=== PATIENT | male | born 1955 | race Caucasian/White ===

== ENCOUNTER 2019-10-14 03:47 | Inpatient (IN) | payer MEDICARE, SELFPAY ==
[2019-10-14] VITALS (36 sets, daily range): BP systolic 132–210; BP diastolic 74–138; PULSE 56–97; RESP 13–60; TEMP 36.6–37.1; O2SAT 88–98; BMI 34.8
--- NOTE | 2019-10-14 03:52 | ED_ITS ---
Entered by Johanny Ron, acting as scribe for Documented by User: José Miguel Patrick DO 10/14/19 18:53 HPI - SOB/Dyspnea General: Chief Complaint: Shortness of Breath/Dyspnea Stated Complaint: sob Time Seen by Provider: 10/14/19 03:52 Source: patient Mode of arrival: ambulatory Limitations: no limitations History of Present Illness: HPI Narrative: 64 yo m came to the er pov for shortness of breath. Onset was 2 days ago. Pt said that he has not been running a fever and does not have a productive cough. Pt said that a couple days ago his daughter called the ambulance and they administer o2 and he felt good so he did not want to come into the er. Pt said that his breathing gets worse when he lays back. Pt is not a smoker and has not traveled recently. Pt is a diabetic. Pt said that his pcp is Dr. Harris out of [place]. MD elicited complaint: shortness of breath Pertinent past history: diabetes Onset (ago): day(s) (2 days ago) Timing: constant Severity: moderate Exacerbating factors: lying flat Relieving factors: oxygen and rest Known history of: diabetes Associated symptoms: Deny abdominal pain, chest pain, fever(s), orthopnea or polyuria Treatment prior to arrival: none Related Data: Home oxygen amount: none Review of Systems General: Reports: other (negative unless marked) Const: Denies: fever ENMT: Denies: throat pain, ear pain, nasal discharge or nasal congestion Card: Reports: swelling of feet/ankles and shortness of breath on exertion; Denies: chest pain or shortness of breath when lying down Resp: Reports: shortness of breath; Denies: productive cough GI: Denies: abdominal pain : Denies: flank pain Musc: Denies: neck pain or back pain Skin/Breast: Denies: rash or itching Neuro: Denies: headache Endo: Denies: excessive urination Christ/Lymph: Denies: easy bruising PFS ED PFSH: Medical History (Updated 10/14/19 @ 11:18 by Tish Valencia DO) Diabetes mellitus Hypertension Mitral regurgitation Obstructive sleep apnea Pulmonary hypertension Surgical History (Updated 10/14/19 @ 11:17 by Tish Valencia DO) History of eye surgery Family History (Updated 10/14/19 @ 11:18 by Tish Valencia DO) Mother Hypertension Social History (Updated 10/14/19 @ 11:19 by Tish Valencia DO) Smoking and tobacco status: former smoker Alcohol intake: never Substance/Drug Use: never Physical Exam Const: COMMON NORMALS: no apparent distress GENERAL APPEARANCE: cooperative and comfortable ORIENTATION/CONSCIOUSNESS: Yes awake, Yes oriented to person, Yes oriented to place and Yes oriented to time HENMT: COMMON NORMALS: normocephalic, head/scalp atraumatic, hearing grossly normal bilaterally, external ears normal, EAC's normal, TM's normal bilaterally, nasal mucous membranes and turbinates normal, moist oral mucous membranes and oropharynx normal HEAD & SCALP: normocephalic and atraumatic NOSE: nasal mucous membranes and turbinates normal EXTERNAL EAR: Yes external ears normal EXTERNAL AUDITORY CANAL: EAC's normal TYMPANIC MEMBRANE: TM's normal bilaterally Eye: COMMON NORMALS: PERRL, EOMs intact bilaterally, conjunctivae normal and no scleral icterus CONJUNCTIVA: Yes conjunctivae normal PUPIL: Yes PERRL Neck/C-Spine: COMMON NORMALS: full ROM, no lymphadenopathy, supple and no JVD Lymph: LYMPHATIC: no lymphadenopathy noted and no lymphedema noted Resp: COMMON NORMALS: normal respiratory effort, no retractions, no use of accessory muscles and clear to auscultation bilaterally AUSCULTATION: clear to auscultation bilaterally Cardio: COMMON NORMALS: no JVD, regular rate, regular rhythm and no murmurs RATE: regular rate RHYTHM: regular rhythm GI: COMMON NORMALS: soft to palpation and no hepatosplenomegaly AUSCULTA TION: Yes normoactive bowel sounds PALPATION: Yes soft, No tender, No guarding and Yes no hepatosplenomegaly Extremity: COMMON NORMALS: normal to inspection, normal capillary refill, no c lubbing, cyanosis or edema and no calf tenderness GENERAL: Yes edema Neuro: SENSORIUM/ORIENTATION: Yes oriented to person, Yes oriented to place and Yes oriented to time Skin: COMMON NORMALS: no rashes or lesions noted GENERAL SKIN EXAM: no rashes or lesions noted Course ED course: Patient has dyspnea with exertion and is mildly orthopneic. We are waiting on a second troponin and doing a home O2 evaluation. Care turned over to Dr. Muro at change of shift Vital Signs: Vital signs: Vital Signs Temperature 97.9 F 10/14/19 03:57 Pulse Rate 72 10/14/19 15:42 Respiratory Rate 18 10/14/19 15:42 Blood Pressure 178/104 10/14/19 15:00 Pulse Oximetry 92 10/14/19 15:42 MDM - SOB/Dyspnea Lab Data: Labs: Lab Results 10/14/19 10/14/19 10/14/19 Range/Units 04:14 04:14 04:14 WBC 11.9 H (4.0-10.0) 10^3/ uL RBC 4.76 (4.1-5.3) 10^6/u L Hgb 14.3 (11.7-16.6) g/dL Hct 43.9 (42.0-52.0) % MCV 92.2 (80-94) fL MCH 30.0 (28.0-34.0) pg MCHC 32.6 (30.0-36.0) g/dL RDW 12.6 (12.1-15.1) % Plt Count 228 (130-400) 10^3/c mm MPV 12.4 H (7.4-10.4) fL Neut % (Auto) 68.5 % Lymph % (Auto) 7.8 % [place] % (Auto) 7.0 % Eos % (Auto) 15.3 % Baso % (Auto) 1.1 % Neut # (Auto) 8.2 H (1.8-7.7) 10^3/u L Lymph # (Auto) 0.9 (0.8-4.8) 10^3/u L [place] # (Auto) 0.8 (0.2-0.9) 10^3/u L Eos # (Auto) 1.8 H (0.0-0.8) 10^3/u L Baso # (Auto) 0.1 (0.0-0.1) 10^3/u L Nucleated RBC % (a uto) 0 % Nucleated RBCs # 0.0 /100WBC Specimen Type Sample Site ABG pH (7.35-7.45) ABG pCO2 (35-45) mmHg ABG pO2 (80.0-100.0) mmH g ABG HCO3 (22-26) mmol/L ABG O2 Saturation ABG Base Excess (-2.0-2.0) mmol/ L Kevin Test A-a O2 Gradient (5-10) mmHg Hematocrit (42-52) % Hgb O2 Saturation (95-100) % Carboxyhemoglobin (0.4-20.1) %THgb Methemoglobin (0.4-1.5) % Total Hemoglobin (14-18) g/dL Ionized Calcium (1.1-1.4) mmol/L O2 Delivery Device O2 Liters/Min % Floral Arranger ID Sodium 141 (136-145) mmol/L Potassium 3.7 (3.5-5.1) mmol/L Chloride 103 (98-107) mmol/L Carbon Dioxide 33 H (22-29) mmol/L Anion Gap 8.7 (5-19) BUN 13 (8-23) mg/dL Creatinine 0.9 (0.7-1.2) mg/dL GFR Calculation 85.5 L (90-130) mL/min Glucose 185 H (65-115) mg/dL Calculated Osmolal ity 293 (285-295) mOsm/k g Calcium 9.0 (8.5-10.5) mg/dL Total Bilirubin 0.9 (0.15-1.2) mg/dL AST 38 (0-40) U/L ALT 50 H (0-41) U/L Alkaline Phosphata se 58 (40-130) IU/L Troponin T Baselin e 36 H (0-15) ng/mL Troponin T 120 Min ramona (0-15) ng/mL Delta Troponin T (0-10) ABS# NT-Pro-B Natriuret Pep 854 H (0-125) pg/mL Total Protein 7.3 (6.6-8.7) g/dL Albumin 3.6 (3.5-5.2) g/dL Globulin 3.7 (1.3-4.6) g/dL Influenza Type A A g (Negative) POC Influenza B Ag (Negative) 10/14/19 10/14/19 10/14/19 Range/Units 04:15 04:16 06:01 WBC (4.0-10.0) 10^3/ uL RBC (4.1-5.3) 10^6/u L Hgb (11.7-16.6) g/dL Hct (42.0-52.0) % MCV (80-94) fL MCH (28.0-34.0) pg MCHC (30.0-36.0) g/dL RDW (12.1-15.1) % Plt Count (130-400) 10^3/c mm MPV (7.4-10.4) fL Neut % (Auto) % Lymph % (Auto) % [place] % (Auto) % Eos % (Auto) % Baso % (Auto) % Neut # (Auto) (1.8-7.7) 10^3/u L Lymph # (Auto) (0.8-4.8) 10^3/u L [place] # (Auto) (0.2-0.9) 10^3/u L Eos # (Auto) (0.0-0.8) 10^3/u L Baso # (Auto) (0.0-0.1) 10^3/u L Nucleated RBC % (a uto) % Nucleated RBCs # /100WBC Specimen Type Arterial Sample Site Brachial, left ABG pH 7.42 (7.35-7.45) ABG pCO2 46.1 H (35-45) mmHg ABG pO2 58.5 L (80.0-100.0) mmH g ABG HCO3 30.0 H (22-26) mmol/L ABG O2 Saturation 92.2 ABG Base Excess 4.6 H (-2.0-2.0) mmol/ L Kevin Test N/a A-a O2 Gradient 34.9 H (5-10) mmHg Hematocrit 45.9 (42-52) % Hgb O2 Saturation 90.8 L (95-100) % Carboxyhemoglobin 0.8 (0.4-20.1) %THgb Methemoglobin 0.7 (0.4-1.5) % Total Hemoglobin 15.0 (14-18) g/dL Ionized Calcium 1.2 (1.1-1.4) mmol/L O2 Delivery Device Nc O2 Liters/Min 3.0 % Floral Arranger ID harkr Sodium 140.0 (136-145) mmol/L Potassium 3.3 L (3.5-5.1) mmol/L Chloride (98-107) mmol/L Carbon Dioxide (22-29) mmol/L Anion Gap (5-19) BUN (8-23) mg/dL Creatinine (0.7-1.2) mg/dL GFR Calculation (90-130) mL/min Glucose 180.0 H (65-115) mg/dL Calculated Osmolal ity (285-295) mOsm/k g Calcium (8.5-10.5) mg/dL Total Bilirubin (0.15-1.2) mg/dL AST (0-40) U/L ALT (0-41) U/L Alkaline Phosphata se (40-130) IU/L Troponin T Baselin e (0-15) ng/mL Troponin T 120 Min ramona 34.45 H (0-15) ng/mL Delta Troponin T -1.55 L (0-10) ABS# NT-Pro-B Natriuret Pep (0-125) pg/mL Total Protein (6.6-8.7) g/dL Albumin (3.5-5.2) g/dL Globulin (1.3-4.6) g/dL Influenza Type A A g Negative (Negative) POC Influenza B Ag Negative (Negative) Discharge Plan Discharge Patient Disposition: Admitted As Inpatient Admit Provider: Tish Vaelncia Clinical Impression: Acute dyspnea, Hypertensive crisis Congestive heart failure Qualifiers: Heart failure type: combined systolic and diastolic Heart failure chronicity: acute Qualified Code(s): I50.41 - Acute combined systolic (congestive) and diastolic (congestive) heart failure Condition: Fair Referrals: William Rodriguez [Primary Care Provider] - Mary Laguna FNP [Family Provider] - Discharge Date/Time: 10/14/19 14:40 Coding Level of Care Code ED Pasteurizing Machine Operator for [facility] Fwd Exam Comprehensive Documented by User: Michael Still DO 10/14/19 08:42 HPI - SOB/Dyspnea General: Chief Complaint: Shortness of Breath/Dyspnea Stated Complaint: sob Time Seen by Provider: 10/14/19 03:52 PFSH ED PFSH: Medical History (Updated 10/14/19 @ 11:18 by Tish Valencia DO) Diabetes mellitus Hypertension Mitral regurgitation Obstructive sleep apnea Pulmonary hypertension Surgical History (Updated 10/14/19 @ 11:17 by Tish Valencia DO) History of eye surgery Family History (Updated 10/14/19 @ 11:18 by Tish Valencia DO) Mother Hypertension Social History (Updated 10/14/19 @ 11:19 by Tish Valencia DO) Smoking and tobacco status: former smoker Alcohol intake: never Substance/Drug Use: never Course Vital Signs: Vital signs: Vital Signs Temperature 97.9 F 10/14/19 03:57 Pulse Rate 72 10/14/19 15:42 Respiratory Rate 18 10/14/19 15:42 Blood Pressure 178/104 10/14/19 15:00 Pulse Oximetry 92 10/14/19 15:42 MDM - SOB/Dyspnea Lab Data: Labs: Lab Results 10/14/19 10/14/19 10/14/19 Range/Units 04:14 04:14 04:14 WBC 11.9 H (4.0-10.0) 10^3/ uL RBC 4.76 (4.1-5.3) 10^6/u L Hgb 14.3 (11.7-16.6) g/dL Hct 43.9 (42.0-52.0) % MCV 92.2 (80-94) fL MCH 30.0 (28.0-34.0) pg MCHC 32.6 (30.0-36.0) g/dL RDW 12.6 (12.1-15.1) % Plt Count 228 (130-400) 10^3/c mm MPV 12.4 H (7.4-10.4) fL Neut % (Auto) 68.5 % Lymph % (Auto) 7.8 % [place] % (Auto) 7.0 % Eos % (Auto) 15.3 % Baso % (Auto) 1.1 % Neut # (Auto) 8.2 H (1.8-7.7) 10^3/u L Lymph # (Auto) 0.9 (0.8-4.8) 10^3/u L [place] # (Auto) 0.8 (0.2-0.9) 10^3/u L Eos # (Auto) 1.8 H (0.0-0.8) 10^3/u L Baso # (Auto) 0.1 (0.0-0.1) 10^3/u L Nucleated RBC % (a uto) 0 % Nucleated RBCs # 0.0 /100WBC Specimen Type Sample Site ABG pH (7.35-7.45) ABG pCO2 (35-45) mmHg ABG pO2 (80.0-100.0) mmH g ABG HCO3 (22-26) mmol/L ABG O2 Saturation ABG Base Excess (-2.0-2.0) mmol/ L Kevin Test A-a O2 Gradient (5-10) mmHg Hematocrit (42-52) % Hgb O2 Saturation (95-100) % Carboxyhemoglobin (0.4-20.1) %THgb Methemoglobin (0.4-1.5) % Total Hemoglobin (14-18) g/dL Ionized Calcium (1.1-1.4) mmol/L O2 Delivery Device O2 Liters/Min % Floral Arranger ID Sodium 141 (136-145) mmol/L Potassium 3.7 (3.5-5.1) mmol/L Chloride 103 (98-107) mmol/L Carbon Dioxide 33 H (22-29) mmol/L Anion Gap 8.7 (5-19) BUN 13 (8-23) mg/dL Creatinine 0.9 (0.7-1.2) mg/dL GFR Calculation 85.5 L (90-130) mL/min Glucose 185 H (65-115) mg/dL Calculated Osmolal ity 293 (285-295) mOsm/k g Calcium 9.0 (8.5-10.5) mg/dL Total Bilirubin 0.9 (0.15-1.2) mg/dL AST 38 (0-40) U/L ALT 50 H (0-41) U/L Alkaline Phosphata se 58 (40-130) IU/L Troponin T Baselin e 36 H (0-15) ng/mL Troponin T 120 Min ramona (0-15) ng/mL Delta Troponin T (0-10) ABS# NT-Pro-B Natriuret Pep 854 H (0-125) pg/mL Total Protein 7.3 (6.6-8.7) g/dL Albumin 3.6 (3.5-5.2) g/dL Globulin 3.7 (1.3-4.6) g/dL Influenza Type A A g (Negative) POC Influenza B Ag (Negative) 10/14/19 10/14/19 10/14/19 Range/Units 04:15 04:16 06:01 WBC (4.0-10.0) 10^3/ uL RBC (4.1-5.3) 10^6/u L Hgb (11.7-16.6) g/dL Hct (42.0-52.0) % MCV (80-94) fL MCH (28.0-34.0) pg MCHC (30.0-36.0) g/dL RDW (12.1-15.1) % Plt Count (130-400) 10^3/c mm MPV (7.4-10.4) fL Neut % (Auto) % Lymph % (Auto) % [place] % (Auto) % Eos % (Auto) % Baso % (Auto) % Neut # (Auto) (1.8-7.7) 10^3/u L Lymph # (Auto) (0.8-4.8) 10^3/u L [place] # (Auto) (0.2-0.9) 10^3/u L Eos # (Auto) (0.0-0.8) 10^3/u L Baso # (Auto) (0.0-0.1) 10^3/u L Nucleated RBC % (a uto) % Nucleated RBCs # /100WBC Specimen Type Arterial Sample Site Brachial, left ABG pH 7.42 (7.35-7.45) ABG pCO2 46.1 H (35-45) mmHg ABG pO2 58.5 L (80.0-100.0) mmH g ABG HCO3 30.0 H (22-26) mmol/L ABG O2 Saturation 92.2 ABG Base Excess 4.6 H (-2.0-2.0) mmol/ L Kevin Test N/a A-a O2 Gradient 34.9 H (5-10) mmHg Hematocrit 45.9 (42-52) % Hgb O2 Saturation 90.8 L (95-100) % Carboxyhemoglobin 0.8 (0.4-20.1) %THgb Methemoglobin 0.7 (0.4-1.5) % Total Hemoglobin 15.0 (14-18) g/dL Ionized Calcium 1.2 (1.1-1.4) mmol/L O2 Delivery Device Nc O2 Liters/Min 3.0 % Floral Arranger ID harkr Sodium 140.0 (136-145) mmol/L Potassium 3.3 L (3.5-5.1) mmol/L Chloride (98-107) mmol/L Carbon Dioxide (22-29) mmol/L Anion Gap (5-19) BUN (8-23) mg/dL Creatinine (0.7-1.2) mg/dL GFR Calculation (90-130) mL/min Glucose 180.0 H (65-115) mg/dL Calculated Osmolal ity (285-295) mOsm/k g Calcium (8.5-10.5) mg/dL Total Bilirubin (0.15-1.2) mg/dL AST (0-40) U/L ALT (0-41) U/L Alkaline Phosphata se (40-130) IU/L Troponin T Baselin e (0-15) ng/mL Troponin T 120 Min ramona 34.45 H (0-15) ng/mL Delta Troponin T -1.55 L (0-10) ABS# NT-Pro-B Natriuret Pep (0-125) pg/mL Total Protein (6.6-8.7) g/dL Albumin (3.5-5.2) g/dL Globulin (1.3-4.6) g/dL Influenza Type A A g Negative (Negative) POC Influenza B Ag Negative (Negative) Discharge Plan Discharge Patient Disposition: Admitted As Inpatient Admit Provider: Tish Valencia Clinical Impression: Acute dyspnea, Hypertensive crisis Congestive heart failure Qualifiers: Heart failure type: combined systolic and diastolic Heart failure chronicity: acute Qualified Code(s): I50.41 - Acute combined systolic (congestive) and diastolic (congestive) heart failure Condition: Fair Referrals: William Rodriguez [Primary Care Provider] - Mary Laguna FNP [Family Provider] - Discharge Date/Time: 10/14/19 14:40 Coding Level of Care Code ED Pasteurizing Machine Operator for [facility] Fwd Exam Comprehensive The documentation recorded by the Asaf murillo Stephanie Lyn, accurately ref lects the service I personally performed and the decisions made by me, José Miguel Patrick, DO Oct 14, 2019 03:47
--- NOTE | 2019-10-14 03:57 | XR_ITS ---
WS: [id number] XR chest 1V portable [id number] REASON FOR EXAM: dyspnea/cough FINDINGS: Cardiomegaly is noted. A reticular nodular pattern throughout both lung antonio are seen in the patterns are similar to previ ous exam of October 12, 2017. There is no active pulmonary edema, pneumonia. XR/XR chest 1V portable [id number] IMPRESSION: Interstitial disease bilaterally Cardiomegaly.
--- NOTE | 2019-10-14 04:03 | ECG_ITS ---
Measurements Intervals [place] Rate: 67 P: 42 DE: 194 QRS: -37 QRSD: 109 T: 111 QT: 452 QTc: 477 SINUS RHYTHM WITH OCCASIONAL SUPRAVENTRICULAR PREMATURE COMPLEXES LEFT AXIS DEVIATION [QRS AXIS < -30] LEFT VENTRICULAR HYPERTROPHY AND ST-T CHANGE [VOLTAGE CRITERIA PLUS ST/T AB ABNORMALITY] No previous ECG available for comparison Electronically Signed On 10-14-2019 12:46:14 CDT by Krystal Castaneda M.D. [email or web address] f
[2019-10-14 04:24] LABS: Basophils # 0.1 10^3/uL (0.0-0.1); Basophils % 1.1 %; Eosinophils # 1.8 10^3/uL (0.0-0.8); Eosinophils % 15.3 %; Hematocrit 43.9 % (42.0-52.0); Hemoglobin 14.3 g/dL (11.7-16.6); Lymphocytes # 0.9 10^3/uL (0.8-4.8); Lymphocytes % 7.8 %; Mean Corpuscular HGB Conc 32.6 g/dL (30.0-36.0); Mean Corpuscular Volume 92.2 fL (80-94); Mean Platelet Volume 12.4 fL (7.4-10.4); Monocytes # 0.8 10^3/uL (0.2-0.9); Neutrophils # 8.2 10^3/uL (1.8-7.7); Neutrophils % 68.5 %; Nucleated Red Blood Cells % 0 %; Platelet Count 228 10^3/cmm (130-400); Red Blood Count 4.76 10^6/uL (4.1-5.3); Red Cell Distribution Width 12.6 % (12.1-15.1); White Blood Count 11.9 10^3/uL (4.0-10.0)
[2019-10-14 04:26] LABS: ABG PCO2 46.1 mmHg (35-45); ABG PH Result 7.42 (7.35-7.45); Alveolar-Arterial Oxygen Gradi 34.9 mmHg (5-10); Arterial Blood Gas Hematocrit 45.9 % (42-52); Base Excess ABG 4.6 mmol/L (-2.0-2.0); Blood Gas Sample Site Brachial, left; Blood Gas Sample Type Arterial; Carboxyhemoglobin 0.8 %THgb (0.4-20.1); HGB O2 Sat 90.8 % (95-100); Ionized Calcium Level - ABG 1.2 mmol/L (1.1-1.4); Methemoglobin 0.7 % (0.4-1.5); Oxygen Device NC; Oxygen Saturation ABG 92.2; PO2 ABG 58.5 mmHg (80.0-100.0); Potassium Level - ABG 3.3 mmol/L (3.5-5.0)
[2019-10-14 04:42] LABS: Troponin(5th) Baseline 36 ng/mL (0-15)
[2019-10-14 04:43] LABS: Alanine Aminotransferase 50 U/L (0-41); Albumin Level 3.6 g/dL (3.5-5.2); Alkaline Phosphatase 58 IU/L (40-130); Anion Gap 8.7 (5-19); Aspartate Amino Transferase 38 U/L (0-40); Blood Urea Nitrogen 13 mg/dL (8-23); Carbon Dioxide 33 mmol/L (22-29); Chloride 103 mmol/L (98-107); Creatinine Clr Calc Pharmacy 108.9824; Globulin 3.7 g/dL (1.3-4.6); Glomerular Filtration Rate 85.5 mL/min (90-130); Glucose 185 mg/dL (65-115); Osmolality Calculated 293 mOsm/kg (285-295); Potassium 3.7 mmol/L (3.5-5.1); Sodium 141 mmol/L (136-145); Total Bilirubin 0.9 mg/dL (0.15-1.2); Total Protein 7.3 g/dL (6.6-8.7)
[2019-10-14 05:13] LABS: Influenza A by IFA Negative (Negative); Influenza B by IFA Negative (Negative)
[2019-10-14] MEDS: FUROsemide 10 mg/mL SDV 4mL 40 MG IVP (05:45)
[2019-10-14] MEDS: hyDRALAzine 20 mg/mL INJ 1 mL 10 MG IVP (05:47)
[2019-10-14 05:49] LABS: NT Pro B Type Natriuretic Pept 854 pg/mL (0-125)
--- NOTE | 2019-10-14 06:03 | ECG_ITS ---
Measurements Intervals [place] Rate: 63 P: 36 MS: 193 QRS: -24 QRSD: 104 T: 110 QT: 450 QTc: 461 SINUS RHYTHM BORDERLINE LEFT AXIS DEVIATION [QRS AXIS < -20] ST DEVIATION AND MODERATE T-WAVE ABNORMALITY, CONSIDER LATERAL ISCHEMIA No previous ECG available for comparison Electronically Signed On 10-14-2019 13:09:39 CDT by Krystal Castaneda M.D. [id number] f
[2019-10-14 06:28] LABS: Troponin 5 2HR 34.45 ng/mL (0-15)
[2019-10-14 06:40] LABS: Troponin 5 2HR Delta -1.55 ABS# (0-10)
[2019-10-14] MEDS: labetalol 5 mg/mL SDV 20mL 20 MG IVP (06:40)
--- NOTE | 2019-10-14 06:51 | PC.NURSE ---
850 ml urine emptied from urinal at this time.
--- NOTE | 2019-10-14 07:12 | PC.NURSE ---
PHYSICAL ASSESSMENT Chief Complaint: Shortness of breath Hx: Patient reports increased shortness of breath starting several days ago. Patient reports experiencing similar episodes previously. GENERAL / NEURO / PSYCH: Alert. Oriented X 4. HEENT: Mucous membranes are pink. RESPIRATORY: Tachypnea (60 RR) Lung sounds clear bilaterally. Grunting with each respiration. Patient unable to lay down. CVS: Capillary refill less than 2 seconds. GI / : Abdomen soft and nontender. Bowel sounds within normal limits. SKIN: Skin is warm with slight diaphoresis. Normal skin turgor.
--- NOTE | 2019-10-14 07:14 | PC.NURSE ---
RT to bedside for Bi-PAP application
--- NOTE | 2019-10-14 07:42 | PC.NURSE ---
Patient on Bi-PAP. Patient now able to lay semi fowlers. He reports feeling better following Bi-PAP application.
--- NOTE | 2019-10-14 07:50 | PC.NURSE ---
Daughter of patient has called. Patient unable to speak at this time. She was given an update on the patient's condition.
--- NOTE | 2019-10-14 08:54 | PC.NURSE ---
Patient becoming uncomfortable laying in hospital stretcher. Patient advised that he is waiting on other patients to be discharged so the hospital can accommodate him. Bi-PAP mask removed and sips of water given. Mask reapplied.
[2019-10-14 10:34] LABS: Troponin 5 6HR 34.79 ng/mL (0-15)
[2019-10-14 10:40] LABS: Troponin 5 6HR Delta -1.21 ng/L (0-12)
--- NOTE | 2019-10-14 11:07 | PC.NURSE ---
Patient resting at this time. He was offered water to drink. No needs voiced at this time.
--- NOTE | 2019-10-14 11:14 | P.HP_ITS ---
Providers/Chief Complaint Admitting Physician: Tish Valencia DO Primary Care Provider: William Rodriguez Chief Complaint: sob History of Present Illness Christian Lynch is a 64 year old male that presented to the emergency department for increasing shortness of breath. Patient denies any cough or sputum production, stated that his symptoms started over the past few days. He denies any recent illness, no fevers or chills, no travel or recent exposures. He reports history of high blood pressure and diabetes and takes lisinopril amlodipine and glyburide. He reported that he saw his primary care provider several weeks ago but no recent medication adjustments. He denies any chest pain or tightness, no palpitations lightheadedness or dizziness. Reports that he has been told that he had obstructive sleep apnea in the past but is never been on a CPAP. Patient was seen and evaluated in the emergency department noted to have concern for COPD and CHF exacerbation and admitted for further evaluation and treatment. Patient had flu swab that was negative. Concern for CHF exacerbation with hypertensive urgency and given IV Lasix, hydralazine and labetalol. Review of Systems Const: Denies: fever or chills Eyes: Denies: change in vision ENMT: Denies: nasal congestion Card: Reports: edema; Denies: chest pain or palpitations Resp: Reports: shortness of breath; Denies: productive cough or coughing up blood GI: Denies: abdominal pain, nausea, vomiting, diarrhea, constipation, blood in stool or black tarry stool : Denies: painful urination or blood in urine Musc: Denies: extremity pain or muscle cramps Skin/Breast: Denies: rash or new lesion Neuro: Denies: headache or dizziness Psych: Denies: anxiety or depression Endo: Denies: excessive urination or hot flashes Christ/Lymph: Denies: easy bruising or easy bleeding Medications/Allergies Home Medications Medication Instructions Recorded Confirmed Last Taken Type Eye Vitamin 1 tab PO DAILY 10/14/19 10/14/19 Unknown History albuterol sulfate [Ventolin HFA] 2 puff INHALATION Q4H PRN 10/14/19 10/14/19 Unknown History amlodipine 10 mg PO DAILY 10/14/19 10/14/19 Unknown History aspirin [Aspir-81] 81 mg PO DAILY 10/14/19 10/14/19 Unknown History glimepiride 8 mg PO DAILY 10/14/19 10/14/19 Unknown History metoprolol succinate 100 mg PO DAILY 10/14/19 10/14/19 Unknown History Allergies Allergy/AdvReac Type Severity Reaction Status Date / Time No Known Allergies Allergy Verified 10/03/19 08:02 PFSH Acute PFSH: Medical History (Updated 10/14/19 @ 11:18 by Tish Valencia DO) Diabetes mellitus Hypertension Mitral regurgitation Obstructive sleep apnea Pulmonary hypertension Surgical History (Updated 10/14/19 @ 11:17 by Tish Valencia DO) History of eye surgery Family History (Updated 10/14/19 @ 11:18 by Tish Valencia DO) Mother Hypertension Social History (Updated 10/14/19 @ 11:19 by Tish Valencia DO) Smoking and tobacco status: former smoker Alcohol intake: never Substance/Drug Use: never Vitals/I&O/Wt Last Vital Signs Temp 97.9 F 10/14/19 03:57 Pulse 65 10/14/19 11:08 Resp 16 10/14/19 11:08 BP 158/82 10/14/19 11:08 Pulse Ox 95 10/14/19 11:08 Weight last 48 hrs Weight 113.398 kg Physical Exam Const: COMMON NORMALS: oriented x3 GENERAL APPEARANCE: cooperative and lethargic ORIENTATION/CONSCIOUSNESS: Yes oriented to person HENMT: COMMON NORMALS: normocephalic and head/scalp atraumatic HEAD & SCALP: normocephalic and atraumatic Eye: COMMON NORMALS: PERRL PUPIL: Yes PERRL Neck/C-Spine: COMMON NORMALS: supple GENERAL: Yes normal visual inspection Resp: OTHER: BiPAP in place, diminished breath sounds bilaterally, no appreciable wheezing or rhonchi Cardio: COMMON NORMALS: regular rate and regular rhythm RATE: regular rate RHYTHM: regular rhythm OTHER: Faint systolic murmur GI: COMMON NORMALS: soft to palpation and non-tender INSPECTION: No abdominal distension AUSCULTATION: Yes normoactive bowel sounds PALPATION: Yes soft : COMMON NORMALS: Yes no CVA tenderness Extremity: OTHER: 3+ pitting edema in the lower extremities bilaterally Neuro: COMMON NORMALS: moves all extremities and no focal motor deficits SENSORIUM/ORIENTATION: Yes lethargic Psych: COMMON NORMALS: cooperative Skin: COMMON NORMALS: no rashes or lesions noted GENERAL SKIN EXAM: no rash es or lesions noted Data : 10/14/19 04:14 10/14/19 04:14 CXR: I personally reviewed and interpreted this imaging study as follows: Radiologist's impression: FINDINGS: Cardiomegaly is noted. A reticular nodular pattern throughout both lung antonio are seen in the patterns are similar to previous exam of October 12, 2017. There is no active pulmonary edema, pneumonia. XR/XR chest 1V portable [id number] IMPRESSION: Interstitial disease bilaterally Cardiomegaly. A&P Assessment and plan (1) Congestive heart failure: Concern for underlying congestive heart failure, prior echocardiogram from several years ago reviewed showing grade 2 diastolic dysfunction. On prior stress test that showed decreased LVEF to 30%, however echocardiogram showed around 55%. Will repeat echocardiogram for further evaluation Patient appears to be fluid overloaded on exam, given IV Lasix x1 in the ER, will continue with Lasix 40 mg daily Strict intake and output as well as daily weights Status: Acute Qualifiers: Heart failure chronicity: acute Heart failure type: combined systolic and diastolic Qualified Code(s): I50.41 - Acute combined systolic (congestive) and diastolic (congestive) heart failure Code(s): I50.9 - Heart failure, unspecified (2) Acute dyspnea: With hypoxia and hypercapnia, placed on BiPAP while in the ED, will transition to oxygen by nasal cannula as tolerated. We will continue to diurese as noted above. Patient does have prior sleep study which shows severe obstructive sleep apnea and recommended to wear CPAP, he has not had this at home Status: Acute Code(s): R06.00 - Dyspnea, unspecified (3) Hypertensive crisis: Given IV labetalol and hydralazine as well as Lasix in the ER, will restart his home amlodipine, lisinopril and metoprolol. Adjust medications and continue with diuresis as above Status: Acute Code(s): I16.9 - Hypertensive crisis, unspecified Additional A&P Information Diabetes mellitus type 2: Glucose of 185, will place on low-dose sliding scale insulin as needed Patient somewhat sleepy and lethargic while in the ED: Secondary to hypercapnia: Continue on BiPAP, continue with close neurologic checks Question of interstitial lung disease: Continue with respiratory therapy to assess and treat, oxygen per protocol, consider further imaging if indicated DVT prophylaxis: Lovenox Diet: N.p.o. until more alert CODE STATUS: Full code Attestations Medical Necessity Statement*: Patient requires hospitalization due to concern for acute congestive heart failure exacerbation with hypoxia and hypercapnia. Question of chronic interstitial lung disease. 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
[2019-10-14 11:53] LABS: Thyroid Stimulating Hormone 2.02 uIU/mL (0.27-4.20)
[2019-10-14] MEDS: enoxaparin 40 mg/0.4 mL Syringe SUBCUT (11:59)
--- NOTE | 2019-10-14 12:08 | PC.NURSE ---
800 mL urine output
--- NOTE | 2019-10-14 13:18 | PC.NURSE ---
Attempted to call report. Room not available at this time. Unable to give report.
--- NOTE | 2019-10-14 13:48 | PC.NURSE ---
RT at bedside.
--- NOTE | 2019-10-14 13:59 | PC.NURSE ---
Bi-PAP discontinued by RT
--- NOTE | 2019-10-14 14:23 | USCV_ITS ---
Christian Lynch Age: 64 Gender: M : 1955 Exam Date: 10/14/2019 15:26 Ordering Phys: Tish Valencia DO Technologist: Cecille Schmitz Exam Location: [facility] – [place] Indication: Shortness of breath BP: 178 / 104 HR: 63 Rhythm: Sinus Technical Quality: Suboptimal MEASUREMENTS (Male / Female) Normal Values 2D ECHO LV Diastolic Diameter PLAX 4.5 cm 4.2 - 5.9 / 3.9 - 5.3 cm LV Systolic Diameter PLAX 3.5 cm IVS Diastolic Thickness 2.1 cm 0.6 - 1.0 / 0.6 - 0.9 cm IVS Systolic Thickness 2.3 cm LVPW Diastolic Thickness 2.4 cm 0.6 - 1.0 / 0.6 - 0.9 cm LVPW Systolic Thickness 2.8 cm RV Chamber Size 3.9 cm LVOT Diameter 2.1 cm LV Ejection Fraction 2D Teich 43.0 % LV Ejection Fraction MOD 2C 33.7 % LV Ejection Fraction 2C AL 32.2 % LA Diameter 4.6 cm Aorta at Sinotubular Diameter 2.4 cm M-MODE LV Diastolic Diameter MM 6.3 cm 4.2 - 5.9 / 3.9 - 5.3 cm LV Systolic Diameter MM 4.2 cm LV Ejection Fraction MM Teich 62.2 % IVS Diastolic Thickness MM 1.0 cm 0.6 - 1.0 / 0.6 - 0.9 cm IVS Systolic Thickness MM 1.3 cm LVPW Diastolic Thickness MM 1.2 cm 0.6 - 1.0 / 0.6 - 0.9 cm LVPW Systolic Thickness MM 1.1 cm Aortic Annulus Diameter 3.6 cm LA Ao Ratio MM 1.3 MV E Point Septal Separation 1.2 cm DOPPLER AV Peak Velocity 142.0 cm/s LVOT Peak Velocity 110.0 cm/s AV Area Cont Eq vti 2.6 cm squared AV Area Cont Eq pk 2.7 cm squared MV Area PHT 4.8 cm squared Mitral E to A Ratio 1.6 MV E' Velocity 9.0 cm/s Mitral E to MV E' Ratio 10.9 Mitral E to LV E' Lateral Ratio 9.9 Mitral E to LV E' Septal Ratio 12.2 TR Peak Velocity 147.0 cm/s TR Peak Gradient 8.7 mmHg TV Peak E Velocity 64.0 cm/s Right Atrial Pressure 3.0 mmHg Pulmonary Artery Systolic Pressu 11.6 mmHg PV Peak Velocity 77.0 cm/s RV Acceleration Time 0.1 s RV Ejection Time 0.4 s RV AcT/ET 0.4 FINDINGS Left Ventricle Left ventricular cavity not well visualized. Normal left ventricular wall thickness.Overall left ventricular size, systolic function appears to be lower limit of normal. EF 45% . Consider MUGA, JONNATHAN or cardiac MRI if further information regarding EF is needed . Regional wall motion abnormalities - unable to comment due to poor windows Right Ventricle Normal right ventricular size. Normal right ventricular systolic function. Poorly visualized Right Atrium Mildly increased right atrial size. Left Atrium Mildly increased left atrial size. Mitral Valve Thickened mitral valve. Mitral valve not well visualized. Mild mitral valve regurgitation. No mitral stenosis Aortic Valve Aortic valve not well visualized. No aortic valve stenosis. No aortic valve regurgitation. Tricuspid Valve No tricuspid valve regurgitation. Tricuspid valve not well visualized. Pulmonic Valve Pulmonic valve not well visualized. Pericardium No pericardial mass. No pleural effusion. Aorta CONCLUSIONS Overall LV function at lower limit of normal 45% No clinically significant valvular stenosis or regurgitation noted No pericardial effusion noted Technically difficult study Consider JONNATHAN or cardiac MRI if indicated Eleanor Stewart MD (Electronically Signed) Final Date: 14 October 2019 16:30 S
[2019-10-14] MEDS: amlodipine 10 mg Tablet PO (15:08)
[2019-10-14] MEDS: metoprolol succinate ER (24 HR) 100 mg Tablet PO (15:08)
--- NOTE | 2019-10-14 15:48 | PC.NURSE ---
patient using urinal. patient aaox3.
[2019-10-14] MEDS: eucerin cream 113 gm Jar 1 APPLIC TOPICAL (16:27)
[2019-10-14] MEDS: albuterol 8 gm MDI 2 PUFF INHALATION (16:32)
[2019-10-14 16:46] LABS: Glucose Point of Care 167 mg/dL (70-110)
[2019-10-14 20:43] LABS: Glucose Point of Care 158 mg/dL (70-110)
[2019-10-15] VITALS (13 sets, daily range): BP systolic 154–168; BP diastolic 73–93; PULSE 67–88; RESP 10–20; TEMP 36.6–36.7; O2SAT 90–94
[2019-10-15] MEDS: albuterol 8 gm MDI 2 PUFF INHALATION ×3 (00:17→09:09)
[2019-10-15] MEDS: FUROsemide 10 mg/mL SDV 4mL 40 MG IVP (05:12)
[2019-10-15 05:15] LABS: Anion Gap 10.5 (5-19); Blood Urea Nitrogen 17 mg/dL (8-23); Calcium 9.2 mg/dL (8.5-10.5); Carbon Dioxide 32 mmol/L (22-29); Chloride 100 mmol/L (98-107); Glomerular Filtration Rate 75.7 mL/min (90-130); Glucose 207 mg/dL (65-115); Osmolality Calculated 290 mOsm/kg (285-295); Potassium 3.5 mmol/L (3.5-5.1); Sodium 139 mmol/L (136-145)
[2019-10-15 06:16] LABS: Glucose Point of Care 208 mg/dL (70-110)
[2019-10-15] MEDS: metoprolol succinate ER (24 HR) 100 mg Tablet PO (08:08)
[2019-10-15] MEDS: aspirin 81 mg EC Tablet PO (08:08)
[2019-10-15] MEDS: amlodipine 10 mg Tablet PO (08:09)
[2019-10-15] MEDS: lisinopril 20 mg Tablet 40 MG PO (08:09)
--- NOTE | 2019-10-15 11:31 | PM.DCS ---
Discharge Providers Date of Admission: 10/14/19 08:44 Date of Discharge: October 15, 2019 Attending Provider at Admission: Tish Valencia DO Attending Provider at Discharge: Tish Valencia DO Primary Care Provider: William Rodriguez Diagnoses at Discharge Discharge Diagnosis (1) Congestive heart failure: Status: Acute Problem details: LVEF 45% Qualifiers: Heart failure chronicity: acute Heart failure type: combined systolic and diastolic Qualified Code(s): I50.41 - Acute combined systolic (congestive) and diastolic (congestive) heart failure (2) Acute dyspnea: Status: Acute (3) Hypertensive crisis: Status: Acute Reason for Visit Reason for Visit: Reason For Visit: sob Hospital Course Hospital Course: Patient was seen and evaluated in the emergency department on 10/14/2019 and admitted to the hospital due to concern for acute exacerbation of systolic heart failure. Patient was given IV diuresis and continued to improve. He was initially placed on BiPAP and transition to oxygen by nasal cannula and ultimately weaned to room air. Patient was also noted to have hypertensive urgency in the emergency department, this continued to improve with diuresis and blood pressures on date of discharge return to normal range. Patient was noted to have obstructive sleep apnea and continued on BiPAP initially on admission, ultimately weaned to room air as discussed above. On date of discharge she denied any chest pain, no shortness of breath, no dyspnea on exertion or no chest pain on exertion. He reported that he was wanting to be discharged home with outpatient follow-up. Physical Exam Const: COMMON NORMALS: oriented x3 and alert GENERAL APPEARANCE: cooperative HENMT: COMMON NORMALS: normocephalic and head/scalp atraumatic HEAD & SCALP: normocephalic and atraumatic Eye: COMMON NORMALS: PERRL PUPIL: Yes PERRL Neck/C-Spine: COMMON NORMALS: supple GENERAL: Yes normal visual inspection Resp: COMMON NORMALS: normal respiratory effort and clear to auscultation bilaterally EFFORT & INSPECTION: Yes able to speak in complete sentences AUSCULTATION: clear to auscultation bilaterally, no rhonchi and no wheezes Cardio: COMMON NORMALS: regular rate and regular rhythm RATE: regular rate RHYTHM: regular rhythm OTHER: Faint systolic murmur GI: COMMON NORMALS: soft to palpation and non-tender INSPECTION: No abdominal distension AUSCULTATION: Yes normoactive bowel sounds PALPATION: Yes soft : COMMON NORMALS: Yes no CVA tenderness BLADDER/KIDNEY EXAM: Yes no CVA tenderness Back/Pelvis: COMMON NORMALS: no CVA tenderness Extremity: COMMON NORMALS: no clubbing, cyanosis or edema and no calf tenderness OTHER: 1+ pitting edema in the lower extremities bilaterally Neuro: COMMON NORMALS: oriented x3, moves all extremities and no focal motor deficits SENSORIUM/ORIENTATION: Yes alert SPEECH: speech normal Psych: COMMON NORMALS: mental status grossly normal and cooperative Skin: COMMON NORMALS: no rashes or lesions noted GENERAL SKIN EXAM: no rashes or lesions noted Discharge Data Data Completed and Pending: Completed Studies During Hospitalization Category Date Time Status XR chest 1V gretchen ble [id number] Stat Exams 10/14/19 03:57 Completed CV echo complete* [id number] Routine Ultrasound 10/14/19 14:23 Completed Labs from last 24 hours 10/15/19 10/15/19 10/14/19 06:12 03:30 20:37 Sodium 139 Potassium 3.5 Chloride 100 Carbon Dioxide 32 H Anion Gap 10.5 BUN 17 Creatinine 1.0 GFR Calculation 75.7 L Glucose 207 H POC Glucose 208 158 Calculated Osmolal ity 290 Calcium 9.2 TSH 10/14/19 10/14/19 16:43 10:00 Sodium Potassium Chloride Carbon Dioxide Anion Gap BUN Creatinine GFR Calculation Glucose POC Glucose 167 Calculated Osmolal ity Calcium TSH 2.02 Vitals: Last Vital Signs Temp 97.9 F 10/15/19 11:05 Pulse 67 10/15/19 11:05 Resp 19 H 10/15/19 11:05 BP 154/93 10/15/19 11:05 Pulse Ox 92 10/15/19 11:05 Discharge Plan Discharge Patient Disposition: Home, Self-Care Condition: Stable Prescriptions: New potassium chloride 10 mEq Tablet Extended Release 20 meq PO DAILY 30 Days Qty: 60 RF: 0 furosemide [Lasix] 40 mg tablet 40 mg PO DAILY 30 Days Qty: 30 RF: 0 Continued lisinopril 40 mg tablet 40 mg PO DAILY Qty: 30 RF: 0 metoprolol succinate 100 mg tablet extended release 24 hr 100 mg PO DAILY RF: 0 Aspir-81 81 mg Tablet,Delayed Release (Dr/Ec) 81 mg PO DAILY RF: 0 amlodipine 10 mg Tablet 10 mg PO DAILY RF: 0 glimepiride 4 mg tablet 8 mg PO DAILY RF: 0 Ventolin HFA 90 mcg/actuation Hfa Aerosol Inhaler 2 puff INHALATION Q4H PRN (Reason: Shortness Of Breath) RF: 0 Eye Vitamin 1 tab PO DAILY RF: 0 Discharge Orders: Discharge Order (Routine); Ordered 10/15/19 Ordered By: Tish Valencia Referrals: William Rodriguez [Primary Care Provider] - 4-7 days Mary Laguna FNP [Family Provider] - Discharge Diet: Advance as tolerated, Cardiac, Diabetic and Low Salt Discharge Activity: Increase activity as tolerated Activity Restrictions/Additional Instructions: Started on Lasix 40 mg daily, also started on potassium 20 mEq daily. Monitor intake and output of fluids as well as daily weights. For any weight gain more than 3 to 4 pounds in a 24-hour time. Please call your primary care provider. For any chest pain or shortness of breath please present to the emergency department. For any other acute illness or concern call your primary care provider or present to the ER. 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
[2019-10-15 11:48] LABS: Glucose Point of Care 144 mg/dL (70-110)
[2019-10-15] MEDS: enoxaparin 40 mg/0.4 mL Syringe SUBCUT (12:59)
--- NOTE | 2019-10-15 14:36 | PC.NURSE ---
Discharge to home Educate pt on checking his BP, importance of weighing himself and watching for increasing swelling on legs, weight gain of more than 3 lbs in 24 hrs and worsening SOB. Pt verbalizes understanding. Needed more reinforcement on these. 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 Instructed to pt the new meds actions, dosing and timing and possible s/e. Pt verbalizes understanding. Discharge papers provided.
== END 2019-10-15 14:36 | disposition home or self-care (01) | DRG 292 ==
LOC: ER 07:01 → CSU 14:19
PROVIDERS: Family Medicine; Admitting Provider Family Medicine; Emergency Provider Family Medicine; Family Provider Nurse Practitioner Family; PCP Family Medicine; Visit Provider Family Medicine
DX: I50.41 Acute combined systolic (congestive) and diastolic (congestive) heart failure (principal); I16.9 Hypertensive crisis, unspecified; E11.9 Type 2 diabetes mellitus without complications; R06.00 Dyspnea, unspecified; Z87.891 Personal history of nicotine dependence; Z79.82 Long term (current) use of aspirin; Z79.83 Long term (current) use of bisphosphonates; Z79.811 Long term (current) use of aromatase inhibitors
CPT/HCPCS: 12345; 36415; 36416; 36600; 71045; 80048; 80051; 80053; 82810; 82962; 83880; 83986; 84443; 84484; 85025; 87804; 93005; 93306; 94640; 94660; 96372; 96375; 99284; J0360; J1650; J1815; J1940; J3490; J3535

== ENCOUNTER → 2019-10-22 14:05 | Outpatient (BNVA) | payer MEDICARE, SELFPAY | PROVIDERS: Family Provider Nurse Practitioner Family; PCP Family Medicine; Visit Provider Internal Medicine Cardiovascular Disease | DX: I50.9 Heart failure, unspecified (principal) | CPT/HCPCS: 80048; 83735; 83880 ==

== ENCOUNTER → 2020-05-16 17:35 | Outpatient (BNVA) | payer MEDICARE, SELFPAY | PROVIDERS: Family Provider Nurse Practitioner Family; PCP Family Medicine; Visit Provider Nurse Practitioner Family | DX: Z11.59 Encounter for screening for other viral diseases (principal); J40 Bronchitis, not specified as acute or chronic; J44.1 Chronic obstructive pulmonary disease with (acute) exacerbation | CPT/HCPCS: 87635 ==

== ENCOUNTER 2020-05-17 15:26 | Emergency (ER) | payer MEDICARE, SELFPAY ==
--- NOTE | 2020-05-17 15:44 | XRR_ITS ---
PROCEDURE INFORMATION: Exam: XR Chest, 1 View Exam date and time: 05/17/2020 7:44 PM Age: 65 years old Clinical indication: Cough and shortness of breath; Additional info: Dyspnea/cough TECHNIQUE: Imaging protocol: XR of the chest Views: 1 view. COMPARISON: CR XR chest 1V portable [id number] 10/14/2019 4:06 AM FINDINGS: Lungs: Lungs appear unremarkable. No pulmonary venous congestion, pulmonary edema, or acute infiltrate demonstrated. Pleural space: No pleural effusion. No pneumothorax. Heart/Mediastinum: Mild cardiomegaly is noted. Bones/joints: Unremarkable. XR/XR chest 1V portable [id number] IMPRESSION: 1. Mild cardiomegaly is noted. 2. Lungs appear unremarkable. No pulmonary venous congestion, pulmonary edema, or acute infiltrate demonstrated. Previously noted interstitial disease demonstrated on 10/14/2019 has improved.
[2020-05-17 16:00] VITALS: BP 205/98; PULSE 84; RESP 20; TEMP 36.7; O2SAT 90; BMI 34.8
[2020-05-17 16:51] LABS: Basophils # 0.1 10^3/uL (0.0-0.1); Basophils % 1.4 %; Eosinophils # 2.1 10^3/uL (0.0-0.8); Eosinophils % 22.6 %; Hematocrit 50.1 % (42.0-52.0); Hemoglobin 16.3 g/dL (11.7-16.6); Lymphocytes # 0.9 10^3/uL (0.8-4.8); Lymphocytes % 9.6 %; Mean Corpuscular HGB Conc 32.5 g/dL (30.0-36.0); Mean Corpuscular Hemoglobin 30.1 pg (28.0-34.0); Mean Corpuscular Volume 92.4 fL (80-94); Mean Platelet Volume 11.5 fL (7.4-10.4); Monocytes # 0.7 10^3/uL (0.2-0.9); Monocytes % 7.7 %; Neutrophils # 5.48 10^3/uL (1.8-7.7); Neutrophils % 58.5 %; Nucleated Red Blood Cells % 0 %; Platelet Count 195 10^3/cmm (130-400); Red Blood Count 5.42 10^6/uL (4.1-5.3); Red Cell Distribution Width 12.7 % (12.1-15.1); White Blood Count 9.4 10^3/uL (4.0-10.0)
[2020-05-17 17:22] LABS: Alanine Aminotransferase 25 U/L (0-41); Albumin Level 4.1 g/dL (3.5-5.2); Alkaline Phosphatase 66 IU/L (40-130); Anion Gap 13.1 (5-19); Aspartate Amino Transferase 19 U/L (0-40); Blood Urea Nitrogen 23 mg/dL (8-23); Calcium 9.7 mg/dL (8.5-10.5); Carbon Dioxide 28 mmol/L (22-29); Chloride 98 mmol/L (98-107); Globulin 3.7 g/dL (1.3-4.6); Glomerular Filtration Rate 75.5 mL/min (90-130); Glucose 287 mg/dL (65-115); NT Pro B Type Natriuretic Pept 303 pg/mL (0-125); Osmolality Calculated 294 mOsm/kg (285-295); Potassium 4.1 mmol/L (3.5-5.1); Sodium 135 mmol/L (136-145); Total Bilirubin 0.7 mg/dL (0.15-1.2); Total Protein 7.8 g/dL (6.6-8.7)
--- NOTE | 2020-05-17 19:24 | W.ED.SOB ---
HPI - SOB/Dyspnea General: Chief Complaint: Shortness of Breath/Dyspnea Stated Complaint: Dr sent over to admit/congestive heart failure Time Seen by Provider: 05/17/20 19:18 History of Present Illness: HPI Narrative: Patient is a 65-year-old male who comes to the ED with shortness of breath. Patient has a past medical history of COPD, hypertension, diabetes and heart failure. Patient says shortness of breath started within the last 24 hours. He is used his inhalers at home and have not provided any relief. He went into [facility] walk-in clinic yesterday and was diagnosed with acute exacerbation of COPD. They performed an O2 chest and said that his oxygen levels dropped to 88% when he was up moving around. He was then told to come to the ED for further evaluation. Patient denies any fever, chills, upper respiratory symptoms. Endorses having some wheezing and a dry cough is chronic in nature. Associated symptoms: Deny abdominal pain, chest pain, fever(s), nausea, orthopnea, palpitations or vomiting Review of Systems Const: Denies: fever(s), chills or fatigue Eyes: Denies: change in vision or eye discomfort ENMT: Denies: throat pain, odynophagia, nasal discharge or nasal congestion Card: Denies: chest pain, palpitations, edema, swelling of feet/ankles, dyspnea on exertion or orthopnea Resp: Reports: dyspnea and non-productive cough; Denies: productive cough GI: Denies: abdominal pain, nausea, vomiting, diarrhea, constipation or hematochezia : Denies: flank pain, difficulty urinating, dysuria or hematuria Musc: Denies: neck pain, back pain or extremity swelling Skin/Breast: Denies: rash or new lesions Neuro: Denies: headache(s), numbness in extremities or weakness in extremities PFSH ED PFSH: Medical History Diabetes mellitus Hypertension Mitral regurgitation Obstructive sleep apnea Pulmonary hypertension Surgical History History of eye surgery Family History Mother Hypertension Social History Smoking and tobacco status: former smoker Alcohol intake: never Physical Exam Const: COMMON NORMALS: patient oriented x3 and alert GENERAL APPEARANCE: cooperative and comfortable HENMT: COMMON NORMALS: normocephalic HEAD & SCALP: normocephalic MOUTH: Normal oral and palatal mucosa present THROAT: posterior oropharynx normal and uvula midline Neck/C-Spine: COMMON NORMALS: supple GENERAL: Yes normal visual inspection Resp: COMMON NORMALS: normal respiratory effort, No retractions and No use of accessory muscles EFFORT & INSPECTION: Yes able to speak in complete sentences and Yes tachypneic (Resp 20) AUSCULTATION: wheezes expiratory wheezes, lower bilaterally (Wheezing is worse in the lower lungs bilaterally.) and throughout and diminished lung sounds bilateral in the lower lung antnoio Cardio: COMMON NORMALS: regular rate, regular rhythm, S1 normal heart sound present, S2 normal heart sound present, No gallops present (Cardio), No clicks present (Cardio), No murmurs present (Cardio) and Peripheral pulses 2+ throughout RATE: regular rate RHYTHM: regular rhythm HEART SOUNDS: S1 normal heart sound present and S2 normal heart sound present PERIPHERAL PULSES: Peripheral pulses 2+ throughout GI: COMMON NORMALS: Normal to inspection, nondistended, normoactive bowel sounds present, Soft to palpation, non-tender and no masses PALPATION: Yes Soft to palpation : COMMON NORMALS: Yes no CVA tenderness BLADDER/KIDNEY EXAM: Yes no CVA tenderness Back/Pelvis: COMMON NORMALS: no CVA tenderness Extremity: COMMON NORMALS: normal to inspection and no pedal edema Neuro: COMMON NORMALS: patient oriented x3 and moves all extremities SENSORIUM/ORIENTATION: Yes alert Skin: COMMON NORMALS: no rashes or lesions noted GENERAL SKIN EXAM: no rashes or lesions noted and dry skin Course Reevaluation(s): Reevaluation #1: I listened to patient's lungs after he received breathing treatment. Wheezing had improved in lung sounds improved at the bases bilaterally. Consultations: Consultation #1: Home O2 evaluation was performed here in the ED. RT said patient did not meet criteria for home O2. He was never below 90% during evaluation. Vital Signs: Vital signs: Vital Signs Temperature 98.0 F 05/17/20 16:00 Pulse Rate 88 05/17/20 21:50 Respiratory Rate 18 05/17/20 21:50 Blood Pressure 136/78 05/17/20 21:50 Pulse Oximetry 97 05/17/20 21:50 BP-183/102 at 2047 MDM - SOB/Dyspnea MDM Narrative: Medical decision making narrative: Patient is a 65-year-old male that comes to the ED with shortness of breath. Patient has a past medical history of heart failure, COPD, diabetes and hypertension. Patient denies any upper respiratory symptoms, fever, productive cough or exposure to any Covid positive patients. Patient has inhalers at home he uses for his COPD. Patient's lungs had wheezing throughout and some diminished lung sounds at the bases bilaterally. CBC and CMP were unremarkable. Patient's BNP level was 303. Chest x-ray showed no acute infiltrates or findings. Patient was given IM Solu-Medrol, azithromycin and 2 DuoNeb breathing treatments. Patient's lung sounds improved upon auscultation. Then ordered a home O2 eval on patient and patient did not qualify for home O2. Respiratory therapist said patient never went below 90% on room air during evaluation. Patient was diagnosed with acute exacerbation of COPD and sent home with prescription of azithromycin and prednisone. He was told he can continue using his inhalers as prescribed. Follow-up with PCP in 7 to 10 days. Patient was told to return to ED if shortness of breath is not improving or getting worse. Patient understood and agreed with plan. Lab Data: Attestation: I reviewed the patient's lab results. Labs: Lab Results 05/17/20 05/17/20 Range/Units 16:45 16:45 WBC 9.4 (4.0-10.0) 10^3/ uL RBC 5.42 H (4.1-5.3) 10^6/u L Hgb 16.3 (11.7-16.6) g/dL Hct 50.1 (42.0-52.0) % MCV 92.4 (80-94) fL MCH 30.1 (28.0-34.0) pg MCHC 32.5 (30.0-36.0) g/dL RDW 12.7 (12.1-15.1) % Plt Count 195 (130-400) 10^3/c mm MPV 11.5 H (7.4-10.4) fL Neut % (Auto) 58.5 % Lymph % (Auto) 9.6 % Lee % (Auto) 7.7 % Eos % (Auto) 22.6 % Baso % (Auto) 1.4 % Neut # (Auto) 5.48 (1.8-7.7) 10^3/u L Lymph # (Auto) 0.9 (0.8-4.8) 10^3/u L Lee # (Auto) 0.7 (0.2-0.9) 10^3/u L Eos # (Auto) 2.1 H (0.0-0.8) 10^3/u L Baso # (Auto) 0.1 (0.0-0.1) 10^3/u L Nucleated RBC % (a uto) 0 % Nucleated RBCs # 0.0 /100WBC Sodium 135 L (136-145) mmol/L Potassium 4.1 (3.5-5.1) mmol/L Chloride 98 (98-107) mmol/L Carbon Dioxide 28 (22-29) mmol/L Anion Gap 13.1 (5-19) BUN 23 (8-23) mg/dL Creatinine 1.0 (0.7-1.2) mg/dL GFR Calculation 75.5 L (90-130) mL/min Glucose 287 H (65-115) mg/dL Calculated Osmolal ity 294 (285-295) mOsm/k g Calcium 9.7 (8.5-10.5) mg/dL Total Bilirubin 0.7 (0.15-1.2) mg/dL AST 19 (0-40) U/L ALT 25 (0-41) U/L Alkaline Phosphata se 66 (40-130) IU/L NT-Pro-B Natriuret Pep 303 H (0-125) pg/mL Total Protein 7.8 (6.6-8.7) g/dL Albumin 4.1 (3.5-5.2) g/dL Globulin 3.7 (1.3-4.6) g/dL Imaging Data^: CXR: Attestation: I personally reviewed and interpreted this imaging study as follows: My impression: No acute findings or infiltrates seen. Discharge Plan Discharge Patient Disposition: Home Clinical Impression: Acute exacerbation of chronic obstructive airways disease Condition: Stable Prescriptions: New prednisone 20 mg tablet 20 mg PO TID 5 Days Qty: 15 RF: 0 azithromycin 250 mg tablet 250 mg PO DAILY 4 Days Qty: 4 RF: 0 No Action spironolactone 25 mg tablet 25 mg PO DAILY Qty: 30 RF: 3 Lasix 40 mg tablet 40 mg PO DAILY Qty: 30 RF: 3 potassium chloride 20 mEq tablet extended release 20 meq PO DAILY Qty: 30 RF: 3 albuterol sulfate 2.5 mg /3 mL (0.083 %) solution for nebulization 2.5 mg INHALATION Q6H Qty: 75 RF: 0 (DME) AeroEclipse II Nebulizer Misc See Rx Instructions .ROUTE .MEDSUPPLY Qty: 1 RF: 0 lisinopril 40 mg tablet 40 mg PO DAILY Qty: 30 RF: 0 amlodipine 10 mg tablet 10 mg PO DAILY Qty: 30 RF: 0 metoprolol succinate 100 mg tablet extended release 24 hr 100 mg PO DAILY RF: 0 Aspir-81 81 mg Tablet,Delayed Release (Dr/Ec) 81 mg PO DAILY RF: 0 glimepiride 4 mg tablet 8 mg PO DAILY RF: 0 Ventolin HFA 90 mcg/actuation Hfa Aerosol Inhaler 2 puff INHALATION Q4H PRN (Reason: Shortness Of Breath) RF: 0 Eye Vitamin 1 tab PO DAILY RF: 0 Discharge Orders: Discharge Order (Routine); Ordered 05/17/20 Ordered By: Michael Ashley Referrals: William Rodriguez [Primary Care Provider] - Discharge Diet: Regular Discharge Activity: Increase activity as tolerated Patient Instructions: Chronic Obstructive Pulmonary Disease (ED) Activity Restrictions/Additional Instructions: Follow-up with medical provider as directed in 5-7 days. Take medications as prescribed. Return to the ER or your medical provider if condition worsens. Please read and understand discharge instructions. If any questions, please ask. 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
[2020-05-17 20:14] VITALS: PULSE 80; RESP 18; O2SAT 91
[2020-05-17] MEDS: ipratropium-albuterol 3 mL Neb 6 ML INHALATION (20:14)
[2020-05-17 21:14] VITALS: O2SAT 90
[2020-05-17] MEDS: azithromycin 250 mg Tablet 500 MG PO (21:48)
[2020-05-17 21:50] VITALS: BP 136/78; PULSE 88; RESP 18; O2SAT 97
== END 2020-05-17 21:52 | disposition home or self-care (01) ==
PROVIDERS: Family Medicine; Emergency Provider Physician Assistant; PCP Family Medicine
DX: J44.1 Chronic obstructive pulmonary disease with (acute) exacerbation (principal); Z79.82 Long term (current) use of aspirin; E11.9 Type 2 diabetes mellitus without complications; I10 Essential (primary) hypertension; Z87.891 Personal history of nicotine dependence
CPT/HCPCS: 12345; 71045; 80053; 83880; 85025; 94640; 96372; 99282; 99283; J2930; Q0144

== ENCOUNTER → 2020-06-16 15:48 | Outpatient (BNVA) | payer MEDICARE, SELFPAY | PROVIDERS: PCP Family Medicine; Visit Provider Internal Medicine Cardiovascular Disease | DX: I27.20 Pulmonary hypertension, unspecified (principal); I50.41 Acute combined systolic (congestive) and diastolic (congestive) heart failure; E11.9 Type 2 diabetes mellitus without complications; I10 Essential (primary) hypertension; R06.00 Dyspnea, unspecified; I34.0 Nonrheumatic mitral (valve) insufficiency | CPT/HCPCS: 80053; 80061; 83036; 83735; 83880; 85025 ==

== ENCOUNTER 2020-06-30 10:33 | Outpatient (CLI) | payer MEDICARE, SELFPAY ==
--- NOTE | 2020-06-30 10:56 | XR_ITS ---
WS: [id number] Chest 2 views, 06/30/2020 Clinical Data: R06.00 - Dyspnea, unspecified Comparison: Portable chest, 05/17/2020. Findings: No nodules, masses or effusions are seen. The heart is slightly enlarged. The pulmonary vas cularity is not increased. No pneumonia or pneumothorax is seen. The aortic arch and descending aorta are minimally tortuous. Osteoarthritic changes of the thoracic spine is moderate. There is a gentle dextroscoliosis of the thoracic spine. XR/XR chest 2V* [id number] Impression: Atherosclerosis and cardiomegaly.
== END 2020-06-30 10:34 | disposition home or self-care (01) ==
PROVIDERS: PCP Family Medicine; Visit Provider Internal Medicine Cardiovascular Disease
DX: R06.00 Dyspnea, unspecified (principal); I70.90 Unspecified atherosclerosis; I51.7 Cardiomegaly
CPT/HCPCS: 71046

== ENCOUNTER 2020-07-12 13:16 | Outpatient (CLI) | payer MEDICARE, SELFPAY ==
--- NOTE | 2020-07-12 13:30 | USCV_ITS ---
Christian Lynch Age: 65 Gender: M : 1955 Exam Date: 07/12/2020 13:36 Ordering Phys: Krystal Castaneda MD ([email or web address]) Technologist: Soren San Exam Location: [facility] Indication: CHF BP: 150 / 80 HR: 71 Rhythm: Sinus Technical Quality: Adequate MEASUREMENTS (Male / Female) Normal Values 2D ECHO LV Diastolic Diameter PLAX 4.3 cm 4.2 - 5.9 / 3.9 - 5.3 cm LV Systolic Diameter PLAX 3.1 cm IVS Diastolic Thickness 2.2 cm 0.6 - 1.0 / 0.6 - 0.9 cm IVS Systolic Thickness 2.0 cm LVPW Diastolic Thickness 1.9 cm 0.6 - 1.0 / 0.6 - 0.9 cm LVPW Systolic Thickness 2.2 cm LVOT Diameter 2.1 cm LV Ejection Fraction 2D Teich 45.5 % LV Ejection Fraction MOD 2C 63.6 % LV Ejection Fraction 2C AL 64.5 % LA Diameter 4.4 cm LA Width 4.3 cm LA Height 5.4 cm RA Width 3.8 cm RA Height 5.2 cm M-MODE LV Diastolic Diameter MM 5.4 cm 4.2 - 5.9 / 3.9 - 5.3 cm LV Systolic Diameter MM 3.8 cm LV Ejection Fraction MM Teich 56.5 % IVS Diastolic Thickness MM 1.6 cm 0.6 - 1.0 / 0.6 - 0.9 cm IVS Systolic Thickness MM 1.7 cm LVPW Diastolic Thickness MM 1.7 cm 0.6 - 1.0 / 0.6 - 0.9 cm LVPW Systolic Thickness MM 2.3 cm RV Diastolic Diameter MM 2.8 cm Aortic Annulus Diameter 4.0 cm LA Ao Ratio MM 1.1 MV E Point Septal Separation 1.8 cm DOPPLER AV Peak Velocity 188.0 cm/s LVOT Peak Velocity 113.0 cm/s AV Area Cont Eq vti 2.5 cm squared AV Area Cont Eq pk 2.0 cm squared MV Area PHT 5.0 cm squared Mitral E to A Ratio 0.8 MV E' Velocity 42.5 cm/s Mitral E to MV E' Ratio 14.5 Mitral E to LV E' Lateral Ratio 10.8 Mitral E to LV E' Septal Ratio 22.4 TR Peak Velocity 125.0 cm/s TR Peak Gradient 6.3 mmHg TV Peak E Velocity 82.0 cm/s Right Atrial Pressure 3.0 mmHg Pulmonary Artery Systolic Pressu 9.3 mmHg FINDINGS Left Ventricle Normal left ventricular cavity size. Severe concentric left ventricular hypertrophy. Normal left ventricular systolic function. Left ventricular ejection fraction is estimated at 55 %. No regional wall motion abnormalities. Grade II diastolic dysfunction, moderately elevated filling pressures. Right Ventricle Normal right ventricular size and systolic function. Tricuspid valve regurgitant jet is inadequate for estimation of right ventrciular systolic function. Right Atrium Normal right atrial size. Left Atrium Mildly increased left atrial size. Mitral Valve Structurally normal mitral valve. No mitral valve stenosis. Mild mitral valve regurgitation. Aortic Valve Thickened probably trileaflet aortic valve. No aortic valve stenosis. No aortic valve regurgitation. Tricuspid Valve Structurally normal tricuspid valve. Trace to mild tricuspid valve regurgitation. Pulmonic Valve Pulmonic valve not well visualized. No pulmonary valve stenosis. Trace pulmonary valve regurgitation. Pericardium No pericardial effusion. Aorta Normal sized aortic root. CONCLUSIONS 1. Normal left ventricular cavity size. Severe concentric left ventricular hypertrophy. Normal left ventricular systolic function. Left ventricular ejection fraction is estimated at 55 %. No regional wall motion abnormalities. Grade II diastolic dysfunction, moderately elevated filling pressures. 2. Normal right ventricular size and systolic function. 3. Mildly increased left atrial size. 4. Mild mitral valve regurgitation. 5. Direct comparison to previous study is not possible given technically difficult study. Krystal Castaneda MD (Electronically Signed) Final Date: 12 July 2020 22:09 S
== END 2020-07-12 13:17 | disposition home or self-care (01) ==
LOC: US 13:16
PROVIDERS: PCP Family Medicine; Visit Provider Internal Medicine Cardiovascular Disease
DX: I50.41 Acute combined systolic (congestive) and diastolic (congestive) heart failure (principal); I08.1 Rheumatic disorders of both mitral and tricuspid valves; I50.84 End stage heart failure; R06.00 Dyspnea, unspecified
CPT/HCPCS: 93306

== ENCOUNTER → 2021-07-15 09:22 | Outpatient (BNVA) | payer MEDICARE, SELFPAY | PROVIDERS: PCP Family Medicine; Visit Provider Emergency Medicine | DX: S69.92XA Unspecified injury of left wrist, hand and finger(s), initial encounter (principal); M19.042 Primary osteoarthritis, left hand; X58.XXXA Exposure to other specified factors, initial encounter | CPT/HCPCS: 73130 ==

== ENCOUNTER 2022-04-15 19:13 | Observation (INO) | payer MEDICARE, SELFPAY ==
[2022-04-15 19:19] VITALS: BP 172/87; PULSE 66; RESP 18; TEMP 36.6; O2SAT 91; BMI 36.2
--- NOTE | 2022-04-15 19:23 | ECG_ITS ---
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 Measurements Intervals [place] Rate: 63 P: 45 [place]: 203 QRS: -40 QRSD: 103 T: 97 QT: 394 QTc: 404 Interpretive Statements SINUS RHYTHM POSSIBLE ANTERIOR MYOCARDIAL INFARCTION , OF INDETERMINATE AGE [30 ms Q WAVE IN V3/V4, OR R < 0.2 mV IN V4] Possible INFERIOR MYOCARDIAL INFARCTION , PROBABLY OLD [40+ ms Q WAVE AND/OR ST/T ABNORMALITY IN II/aVF] Compared to ECG 10/14/2019 06:12:39 Myocardial infarct finding now present T-wave abnormality no longer present Possible ischemia no longer present Electronically Signed On 04-16-2022 8:36:02 CDT by Alonzo Rich M.D. [id number]
--- NOTE | 2022-04-15 19:23 | XRR_ITS ---
PROCEDURE INFORMATION: Exam: XR Chest Exam date and time: 04/15/2022 8:55 PM Age: 66 years old Clinical indication: Shortness of breath; Additional info: Light-headedness TECHNIQUE: Imaging protocol: Radiologic exam of the chest. Views: 1 view. COMPARISON: CR XR chest 2V* [id number] 06/30/2020 11:03 AM FINDINGS: Lungs: No consolidation. Pleural spaces: No pleural effusion. No pneumothorax. Heart/Mediastinum: Borderline cardiomegaly accentuated by AP portable technique. Bones/joints: Visualized osseous structures are intact. XR/XR chest 1V portable [id number] IMPRESSION: No acute findings.
--- NOTE | 2022-04-15 19:32 | CTR_ITS ---
PROCEDURE INFORMATION: Exam: CT Head Without Contrast Exam date and time: 04/15/2022 8:11 PM Age: 66 years old Clinical indication: Dizziness; Prior surgery; Surgery type: Eye; Additional info: Dizzy TECHNIQUE: Imaging protocol: Computed tomography of the head without contrast. Radiation optimization: All CT scans at this facility use at least one of these dose optimization techniques: automated exposure control; mA and/or kV adjustment per patient size (includes targeted exams where dose is matched to clinical indication); or iterative reconstruction. COMPARISON: No relevant prior studies available. RADIATION DOSE METRICS: Total DLP (mGy-cm): 1048.18 FINDINGS: Brain: No hemorrhage. No edema. Moderate diffuse cerebral atrophy and sequela of chronic small vessel ischemic disease. No mass effect. Cerebral ventricles: No ventriculomegaly. Paranasal sinuses: Mild mucosal thickening of the ethmoid and sphenoid sinuses. Mastoid air cells: Visualized mastoid air cells are well aerated. Bones/joints: Unremarkable. No acute fracture. Soft tissues: Unremarkable. CT/CT head wo con* [id number] IMPRESSION: No acute intracranial abnormality.
--- NOTE | 2022-04-15 19:32 | CTR_ITS ---
PROCEDURE INFORMATION: Exam: CTA Head With Contrast, Arteriography Exam date and time: 04/15/2022 8:14 PM Age: 66 years old Clinical indication: Dizziness and giddiness; Prior surgery; Surgery type: Eye; Additional info: Dizzy TECHNIQUE: Imaging protocol: Computed tomographic angiography of the head with contrast. Exam focused on the arteries. 3D rendering (Not supervised by radiologist): MIP and/or 3D reconstructed images were created by the technologist. Radiation optimization: All CT scans at this facility use at least one of these dose optimization techniques: automated exposure control; mA and/or kV adjustment per patient size (includes targeted exams where dose is matched to clinical indication); or iterative reconstruction. Contrast material: OMNI 350; Contrast volume: 85 ml; Contrast route: INTRAVENOUS (IV); COMPARISON: CT head wo con* [id number] 04/15/2022 8:11 PM RADIATION DOSE METRICS: Total DLP (mGy-cm): 532.12 FINDINGS: ANTERIOR CIRCULATION: Right internal carotid artery: Intracranial segment is patent with no significant stenosis. No aneurysm. Right middle cerebral artery: No occlusion or significant stenosis. No aneurysm. Right anterior cerebral artery: No occlusion or significant stenosis. No aneurysm. Left internal carotid artery: Intracranial segment is patent with no significant stenosis. No aneurysm. Left middle cerebral artery: No occlusion or significant stenosis. No aneurysm. Left anterior cerebral artery: No occlusion or significant stenosis. No aneurysm. POSTERIOR CIRCULATION: Right vertebral artery: No occlusion or significant stenosis. No aneurysm. Left vertebral artery: No occlusion or significant stenosis. No aneurysm. Basilar artery: No occlusion or significant stenosis. No aneurysm. Right posterior cerebral artery: No occlusion or significant stenosis. No aneurysm. Left posterior cerebral artery: No occlusion or significant stenosis. No aneurysm. Brain: No definite mass, mass effect, or midline shift. Cerebral ventricles: No ventriculomegaly. Bones/joints: Unremarkable. No acute fracture. Soft tissues: Unremarkable. PROCEDURE INFORMATION: Exam: CTA Neck With Contrast Exam date and time: 04/15/2022 8:14 PM Age: 66 years old Clinical indication: Dizziness and giddiness; Prior surgery; Surgery type: Eye; Additional info: Dizzy TECHNIQUE: Imaging protocol: Computed tomographic angiography of the neck with contrast. 3D rendering (Not supervised by radiologist): MIP and/or 3D reconstructed images were created by the technologist. Radiation optimization: All CT scans at this facility use at least one of these dose optimization techniques: automated exposure control; mA and/or kV adjustment per patient size (includes targeted exams where dose is matched to clinical indication); or iterative reconstruction. Contrast material: OMNI 350; Contrast volume: 85 ml; Contrast route: INTRAVENOUS (IV); COMPARISON: CT head wo con* [id number] 04/15/2022 8:11 PM RADIATION DOSE METRICS: Total DLP (mGy-cm): 532.12 FINDINGS: Right common carotid artery: No stenosis. No dissection or occlusion. Right internal carotid artery: No stenosis of the extracranial segment. No dissection or occlusion. Right external carotid artery: No occlusion or stenosis of the origin. Left common carotid artery: No stenosis. No dissection or occlusion. Left internal carotid artery: No stenosis of the extracranial segment. No dissection or occlusion. Left external carotid artery: No occlusion or stenosis of the origin. Right vertebral artery: No stenosis. No dissection or occlusion. Left vertebral artery: No stenosis. No dissection or occlusion. Soft tissues: Normal. No significant soft tissue swelling. Bones/joints: No acute fracture. CT/CT angio headneck* [id number] IMPRESSION: No large vessel stenosis or occlusion. IMPRESSION: No stenosis or occlusion. REFERENCES: NASCET CRITERIA. The degree of stenosis in the cervical segment of the internal carotid artery is based on NASCET criteria. Normal is no stenosis. Mild is less than 50% stenosis. Moderate is 50-69% stenosis. Severe is 70% to 99% stenosis. Total occlusion is no detectable patent lumen.
[2022-04-15 19:36] LABS: Basophils # 0.1 10^3/uL (0.0-0.1); Basophils % 1.3 %; Eosinophils # 1.8 10^3/uL (0.0-0.8); Eosinophils % 23.3 %; Hematocrit 49.3 % (42.0-52.0); Hemoglobin 15.9 g/dL (11.7-16.6); Lymphocytes % 13.3 %; Mean Corpuscular HGB Conc 32.3 g/dL (30.0-36.0); Mean Corpuscular Hemoglobin 31.7 pg (28.0-34.0); Mean Corpuscular Volume 98.2 fl (80-94); Mean Platelet Volume 11.7 fL (7.4-10.4); Monocytes # 0.7 10^3/uL (0.2-0.9); Monocytes % 8.9 %; Neutrophils # 3.96 10^3/uL (1.8-7.7); Neutrophils % 52.9 %; Nucleated Red Blood Cells % 0 %; Platelet Count 195 10^3/cmm (130-400); Red Blood Count 5.02 10^6/uL (4.1-5.3); Red Cell Distribution Width 12.6 % (12.1-15.1); White Blood Count 7.5 10^3/uL (4.0-10.0)
[2022-04-15 19:50] LABS: Add Urine Microscopic? NO; Charge for UA Resulting for Rev
[2022-04-15 19:53] LABS: Troponin(5th) Baseline 23 ng/L (0-15)
[2022-04-15 19:54] LABS: Blood Urea Nitrogen 27 mg/dL (8-23); Calcium 9.5 mg/dL (8.5-10.5); Carbon Dioxide 26 mmol/L (22-29); Chloride 101 mmol/L (98-107); Glucose 186 mg/dL (65-115); Osmolality Calculated 296 mOsm/kg (285-295); Sodium 138 mmol/L (136-145)
[2022-04-15] MEDS: ipratropium-albuterol 3 mL Neb INHALATION (20:00)
[2022-04-15 20:01] VITALS: PULSE 64; RESP 18; O2SAT 95
[2022-04-15 20:07] VITALS: PULSE 70
[2022-04-15 20:13] LABS: Bilirubin Urine Neg (Negative); Blood Urine Neg (Negative); Glucose Urine UA Norm (Normal); Ketones Urine Negative (Negative); Leukocyte Esterase Urine Negative (Negative); Nitrate Urine Negative (Negative); Protein Urine Neg (Negative); Specific Gravity, Urine 1.015 (1.005-1.030); Urine Appearance Clear (CLEAR); Urine Color Yellow (Yellow); Urobilinogen Urine Neg (Negative); pH Urine 5 (5-7)
[2022-04-15 20:14] LABS: Anion Gap 15.3 (5-19); Potassium 4.3 mmol/L (3.5-5.1)
[2022-04-15 20:24] VITALS: BP 165/79; PULSE 66; RESP 16; O2SAT 92
[2022-04-15] MEDS: iohexol 350 mg/mL 100 mL Btl IV (20:28)
--- NOTE | 2022-04-15 20:28 | W.ED.DIZZY ---
HPI - Dizziness General: Chief Complaint: Dizziness Stated Complaint: DIZZY Time Seen by Provider: 04/15/22 19:23 Source: patient History of Present Illness: HPI Narrative: 66-year-old male with a history of congestive heart failure. He presents with dizziness, he believes that started when he woke up this morning around 8 AM. He said he felt okay yesterday. He complains of vertiginous dizziness with room spinning. He has had some visual problems today 2. Vision problems are nonspecific. Dizziness has been constant, essentially unchanged with position or head movement. It has not seemed to worsen or improve all day. No prior symptoms of this. He denies weakness or language problems. He has a history of neuropathy, but does not complain of any new sensory changes. He had the above complaints previously for an urgent care clinic in an outside facility, and was sent here by EMS due to them. MD elicited complaint: dizziness Pertinent past history: other Onset (ago): hour(s) Timing: awoke with symptoms Severity: moderate Description: sense of movement and room spinning Context: other History of similar symptoms: No Exacerbating factors: nothing Relieving factors: nothing Associated symptoms: Reports short of breath; Denies change in hearing, chest pain, cough, fevers/chills, headache(s), nausea or vomiting Associated neuro symptoms: Reports gait changes and visual changes; Deny confusion, difficulty speaking, dysphagia, diplopia, extremity weakness, facial numbness, facial weakness or numbness in extremities (None new) Review of Systems Const: Denies: fever(s) Eyes: Reports: change in vision; Denies: blind spots ENMT: Denies: change in hearing Card: Denies: chest pain Resp: Reports: dyspnea; Denies: productive cough or non-productive cough GI: Denies: abdominal pain, nausea, vomiting or dysphagia Neuro: Reports: dizziness and vertigo; Denies: headache(s), numbness in extremities (None new), weakness in extremities, sensory changes or confusion PFS ED PFSH: Medical History Diabetes mellitus Hypertension Mitral regurgitation Obstructive sleep apnea Osteoarthritis of hands, bilateral Pulmonary hypertension Surgical History History of eye surgery Family History Mother Hypertension Social History Smoking and tobacco status: never smoked Smoking risk assessment/counseling performed?: No Alcohol intake: never Counseling given: No Counseling given: No Lives independently: Yes Household members: spouse Marital status: Current occupational status: retired History of recent travel: No Current gender identity: Male Physical Exam Const: COMMON NORMALS: patient oriented x3 GENERAL APPEARANCE: cooperative HENMT: COMMON NORMALS: normocephalic, atraumatic and Normal external nose present HEAD & SCALP: normocephalic and atraumatic FACE & SINUS: normal facial exam and face symmetric NOSE: Normal external nose present and Normal nares present Eye: COMMON NORMALS: Equal, round and reactive pupils present and EOMs intact bilaterally ALIGNMENT: Yes alignment normal PUPIL: Yes Equal, round and reactive pupils present Neck/C-Spine: COMMON NORMALS: full ROM Chest: CHEST: Yes Symmetrical chest wall rise Resp: COMMON NORMALS: clear to auscultation bilaterally EFFORT & INSPECTION: Yes able to speak in complete sentences, Yes tachypneic and No uses accessory muscles AUSCULTATION: clear to auscultation bilaterally Cardio: COMMON NORMALS: regular rate and regular rhythm RATE: regular rate RHYTHM: regular rhythm GI: COMMON NORMALS: Normal to inspection, nondistended, normoactive bowel sounds present and Soft to palpation PALPATION: Yes Soft to palpation Extremity: GENERAL: Yes edema (mild) Neuro: KG COMA SCALE: document GCS findings Kg coma scale eye opening: Spontaneous [place] coma scale verbal response: Orientated Kg coma scale motor response: Obey commands Kg coma scale total score: 15 COMMON NORMALS: patient oriented x3 CRANIAL NERVES: Yes CN normal except as noted and Yes pupillary reactivity/size COORDINATION/BALANCE: nzpuji-lw-lhic test normal and czds-ui-bjfa test normal SPEECH: speech normal GAIT: Yes Unable to assess gait SENSORY EXAM: Yes extremities MOTOR EXAM: Pronator motor function not present COORDINATION: bsfglb-sh-uhuc test normal and lxnj-pn-rzgg test normal Psych: COMMON NORMALS: mental status grossly normal and cooperative Course Vital Signs: Vital signs: Vital Signs Temperature 97.9 F 04/15/22 19:19 Pulse Rate 80 04/15/22 21:30 Respiratory Rate 17 04/15/22 21:30 Blood Pressure 167/79 04/15/22 21:30 Pulse Oximetry 90 04/15/22 21:30 Oxygen Delivery Me thod 04/15/22 20:01 Oxygen Flow Rate 2 04/15/22 20:01 MDM - Dizziness Medical Decision Making 66-year-old gentleman who is significantly ataxic. This is despite an NIH scale of 0. CT and CTA of the head and neck are negative. CBC is normal. BMP shows a BUN of 27. Chest x-ray shows no acute findings. Given his level of ataxia that does not seem positional in any way, he will be observed. Hospitalist is aware. He will evaluate the patient in the ER. Lab Data : 04/15/22 19:00 04/15/22 19:00 Radiology Impressions Chest X-Ray 04/15/22 19:23 IMPRESSION: No acute findings. Head CT 04/15/22 19:32 IMPRESSION: No acute intracranial abnormality. Head/Neck CTA 04/15/22 19:32 IMPRESSION: No large vessel stenosis or occlusion. IMPRESSION: No stenosis or occlusion. REFERENCES: NASCET CRITERIA. The degree of stenosis in the cervical segment of the internal carotid artery is based on NASCET criteria. Normal is no stenosis. Mild is less than 50% stenosis. Moderate is 50-69% stenosis. Severe is 70% to 99% stenosis. Total occlusion is no detectable patent lumen. Lumbar Spine CT 04/15/22 22:02 IMPRESSION: No acute findings. Laboratory Results WBC 7.5 10^3/uL (4.0-10.0) 04/15/22 19:00 RBC 5.02 10^6/uL (4.1-5.3) 04/15/22 19:00 Hgb 15.9 g/dL (11.7-16.6) 04/15/22 19:00 Hct 49.3 % (42.0-52.0) 04/15/22 19:00 MCV 98.2 fl (80-94) H 04/15/22 19:00 MCH 31.7 pg (28.0-34.0) 04/15/22 19:00 MCHC 32.3 g/dL (30.0-36.0) 04/15/22 19:00 RDW 12.6 % (12.1-15.1) 04/15/22 19:00 Plt Count 195 10^3/cmm (130-400) 04/15/22 19:00 MPV 11.7 fL (7.4-10.4) H 04/15/22 19:00 Neut % (Auto) 52.9 % 04/15/22 19:00 Lymph % (Auto) 13.3 % 04/15/22 19:00 Carson % (Auto) 8.9 % 04/15/22 19:00 Eos % (Auto) 23.3 % 04/15/22 19:00 Baso % (Auto) 1.3 % 04/15/22 19:00 Neut # (Auto) 3.96 10^3/uL (1.8-7.7) 04/15/22 19:00 Lymph # (Auto) 1.0 10^3/uL (0.8-4.8) 04/15/22 19:00 Carson # (Auto) 0.7 10^3/uL (0.2-0.9) 04/15/22 19:00 Eos # (Auto) 1.8 10^3/uL (0.0-0.8) H 04/15/22 19:00 Baso # (Auto) 0.1 10^3/uL (0.0-0.1) 04/15/22 19:00 Nucleated RBC % (auto) 0 % 04/15/22 19:00 Nucleated RBCs # 0.0 /100WBC 04/15/22 19:00 Sodium 138 mmol/L (136-145) 04/15/22 19:00 Potassium 4.3 mmol/L (3.5-5.1) 04/15/22 19:00 Chloride 101 mmol/L (98-107) 04/15/22 19:00 Carbon Dioxide 26 mmol/L (22-29) 04/15/22 19:00 Anion Gap 15.3 (5-19) 04/15/22 19:00 BUN 27 mg/dL (8-23) H 04/15/22 19:00 Creatinine 0.9 mg/dL (0.7-1.2) 04/15/22 19:00 GFR Calculation 85.0 mL/min (90-130) L 09/17/22 19:00 Glucose 186 mg/dL (65-115) H 04/15/22 19:00 Calculated Osmolality 296 mOsm/kg (285-295) H 04/15/22 19:00 Calcium 9.5 mg/dL (8.5-10.5) 04/15/22 19:00 Troponin T Baseline 23 ng/L (0-15) H 04/15/22 19:00 NT-Pro-B Natriuret Pep 193 pg/mL (0-125) H 04/15/22 19:00 Urine Color Yellow (Yellow) 04/15/22 19:46 Urine Appearance Clear (CLEAR) 04/15/22 19:46 Urine pH 5 (5-7) 04/15/22 19:46 Ur Specific [place] 1.015 (1.005-1.030) 04/15/22 19:46 Urine Protein Neg (Negative) 04/15/22 19:46 Urine Glucose (UA) Norm (Normal) 04/15/22 19:46 Urine Ketones Negative (Negative) 04/15/22 19:46 Urine Blood Neg (Negative) 04/15/22 19:46 Urine Nitrate Negative (Negative) 04/15/22 19:46 Urine Bilirubin Neg (Negative) 04/15/22 19:46 Urine Urobilinogen Neg mg/dL (Negative) 04/15/22 19:46 Ur Leukocyte Esterase Negative (Negative) 04/15/22 19:46 Discharge Plan Discharge Patient Disposition: Placed in Observation Admit Provider: Carlos Alberto Mtz Clinical Impression: Ataxia Condition: Stable Coding Level of Care Code ED Senior Quality Methods Specialist for g Fwd Exam Comprehensive NIH stroke score NIHSS Level Of Consciousness - 1a: 0 Level Of Consciousness Questions - 1b: Both Correct Level Of Consciousness Commands - 1c: Both Correct Best Gaze - 2: Normal Visual Lino - 3: No Visual Loss Facial Palsy - 4: Normal Motor Arm Right - 5: No Drift Motor Arm Left - 5: No Drift Motor Leg Right - 6: No Drift Motor Leg Left - 6: No Drift Limb Ataxia - 7: Absent Sensory - 8: Normal Best Language - 9: No Aphasia Dysarthia - 10: Normal Extinction And Inattention - 11: 0 Score Total Score: 0
[2022-04-15 20:52] LABS: NT Pro B Type Natriuretic Pept 193 pg/mL (0-125)
--- NOTE | 2022-04-15 21:23 | ECG_ITS ---
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 Measurements Intervals [place] Rate: 65 P: 58 MT: 201 QRS: 219 QRSD: 105 T: 51 QT: 408 QTc: 426 Interpretive Statements SINUS RHYTHM POSSIBLE RIGHT VENTRICULAR HYPERTROPHY [SOME/ALL OF: PROMINENT R IN V1, LATE TRANSITION, RAD, BRIAN, SSS] POSSIBLE ANTERIOR MYOCARDIAL INFARCTION , OF INDETERMINATE AGE [30 ms Q WAVE IN V3/V4, OR R < 0.2 mV IN V4] Compared to ECG 04/15/2022 19:21:01 No significant changes Electronically Signed On 04-16-2022 8:39:15 CDT by Alonzo Rich M.D. [id number]
[2022-04-15 21:30] VITALS: BP 167/79; PULSE 80; RESP 17; O2SAT 90
--- NOTE | 2022-04-15 22:02 | CTR_ITS ---
PROCEDURE INFORMATION: Exam: CT Lumbar Spine Without Contrast Exam date and time: 04/15/2022 10:31 PM Age: 66 years old Clinical indication: Low back pain; Additional info: Ataxic gait, backpain TECHNIQUE: Imaging protocol: Computed tomography of the lumbar spine without contrast. Radiation optimization: All CT scans at this facility use at least one of these dose optimization techniques: automated exposure control; mA and/or kV adjustment per patient size (includes targeted exams where dose is matched to clinical indication); or iterative reconstruction. COMPARISON: CR XR lumbar spine 2-3V* [id number] 10/12/2017 10:42 AM RADIATION DOSE METRICS: Total DLP (mGy-cm): 1270.2 FINDINGS: Bones/joints: No acute fracture. Normal alignment. No significant disc protrusion. No severe spinal canal stenosis. Soft tissues: Unremarkable. CT/CT lumbar spine wo con* [id number] IMPRESSION: No acute findings.
--- NOTE | 2022-04-15 22:03 | P.HP_ITS ---
Providers/Chief Complaint Primary Care Provider: William Rodriguez Chief Complaint: DIZZY History of Present Illness Christian Lynch is a 66 year old male with a past medical history of eosinophilic asthma, congestive heart failure, on home hospice, sfw-hzlcqrh-snbkblopd type II days mellitus, hypertension, MARIA L, pulmonary hypertension, who presents [facility] due to sudden onset ataxia with dizziness. Patient tells me that yesterday, he had a normal day, nothing out of the ordinary, no issues with balance, no history of dizziness. He woke up this morning, with severe dizziness, he tells me that it is an unsteadiness, diz ziness and the room is spinning around you, no tinnitus, he also had trouble walking due to dizziness, unsteadiness, had a ataxic gait. No facial droop no slurring of his words, he has chronic right lower extremity numbness, from presumed diabetes. No other focal neurologic deficits, no word finding difficulty, no visual deficits, he presented to urgent care as there was concerns for stroke he was sent to [facility] for the evaluation, here his CT of his head does not have any acute findings, CTA no acute findings, he continues to have an ataxic gait and complaints of dizziness, when he was stood up by ER staff he had significant ataxic gait which is new. He denies a history of alcohol use, no history of drug use, no recent falls, does report new onset back pain, no urinary incontinence, no bowel incontinence, no saddle or perianal anesthesia, no headache, blurry vision Review of Systems Const: Denies: fever(s) Eyes: Denies: change in vision Card: Denies: chest pain or palpitations Resp: Denies: dyspnea GI: Denies: abdominal pain Neuro: Reports: numbness in extremities, difficulty walking and vertigo; Denies: headache(s), weakness in extremities, sensory changes, frequent falls or dizziness Medications/Allergies Home Medications Medication Instructions Recorded Confirmed Last Taken Type lisinopril 40 mg tablet 40 mg PO DAILY #30 tabs 10/03/19 04/15/22 Unknown Rx Eye Vitamin 1 tab PO DAILY 10/14/19 04/15/22 Unknown History albuterol sulfate 90 mcg/actuation 2 puff inhalation Q4H PRN 10/14/19 04/15/22 Unknown History aerosol inhaler (Ventolin HFA) Shortness Of Breath glimepiride 4 mg tablet 8 mg PO DAILY 10/14/19 04/15/22 Unknown History furosemide 40 mg tablet (Lasix) 40 mg PO DAILY #30 tabs 10/22/19 04/15/22 Unknown Rx amlodipine 10 mg tablet 10 mg PO DAILY #30 tabs 11/28/19 04/15/22 Unknown Rx albuterol sulfate 2.5 mg (3 mL) inhalation Q6H #75 mL 05/16/20 04/15/22 Unknown Rx nebulizers (AeroEclipse II #1 ea 05/16/20 04/15/22 Unknown Rx Nebulizer) spironolactone 25 mg tablet See Rx Instructions .Route 06/21/20 04/15/22 Unknown Rx .COMPLEX #30 tabs tamsulosin 0.4 mg capsule 0.4 mg PO DAILY 08/12/20 04/15/22 Unknown History ipratropium 0.5 mg-albuterol 3 mg 3 ml inhalation QID PRN wheezing 12/13/20 04/15/22 Unknown Rx (2.5 mg base)/3 mL nebulization #360 mL soln potassium chloride 20 mEq 20 meq PO DAILY #30 tabs 12/20/21 04/15/22 Unknown Rx tablet,extended release Allergies Allergy/AdvReac Type Severity Reaction Status Date / Time No Known Allergies Allergy Verified 07/15/21 09:13 PFSH Acute PFSH: Medical History Diabetes mellitus Hypertension Mitral regurgitation Obstructive sleep apnea Osteoarthritis of hands, bilateral Pulmonary hypertension Surgical History History of eye surgery Family History Mother Hypertension Social History Smoking and tobacco status: never smoked Smoking risk assessment/counseling performed?: No Alcohol intake: never Counseling given: No Counseling given: No Lives independently: Yes Household members: spouse Marital status: Current occupational status: retired History of recent travel: No Current gender identity: Male Vitals/I&O/Wt Last Vital Signs Temp 97.9 F 04/15/22 19:19 Pulse 80 04/15/22 21:30 Resp 17 04/15/22 21:30 BP 167/79 04/15/22 21:30 Pulse Ox 90 04/15/22 21:30 O2 Del Method 04/15/22 20:01 O2 Flow Rate 2 04/15/22 20:01 Weight last 48 hrs Weight 117.934 kg Physical Exam Const: COMMON NORMALS: no acute distress and patient oriented x3 HENMT: COMMON NORMALS: normocephalic HEAD & SCALP: normocephalic Eye: COMMON NORMALS: Equal, round and reactive pupils present and EOMs intact bilaterally Neck/C-Spine: COMMON NORMALS: no JVD Resp: COMMON NORMALS: normal respiratory effort, No retractions, No use of accessory muscles and clear to auscultation bilaterally AUSCULTATION: clear to auscultation bilaterally Cardio: COMMON NORMALS: no JVD, regular rate, regular rhythm, S1 normal heart sound present and S2 normal heart sound present RATE: regular rate RHYTHM: regular rhythm HEART SOUNDS: S1 normal heart sound present and S2 normal heart sound present GI: COMMON NORMALS: Normal to inspection, nondistended, normoactive bowel sounds present, Soft to palpation, non-tender, No hepatosplenomegaly present, no masses and no bruits PALPATION: Yes Soft to palpation and Yes No hepatos plenomegaly present Extremity: COMMON NORMALS: capillary refill normal, no clubbing, cyanosis or edema, no calf tenderness and no pedal edema Neuro: COMMON NORMALS: patient oriented x3, CN's II-XII intact bilaterally, moves all extremities, no focal motor deficits and no sensory deficits noted OTHER: - Mijezd-sg-whbh normal, hcqm-jb-cfbu normal, no saccadic eye movements -Helen's maneuver unremarkable -Has ataxic gait Psych: COMMON NORMALS: mental status grossly normal Data : 04/15/22 19:00 04/15/22 19:00 A&P Assessment and plan (1) Acute CVA (cerebrovascular accident): Status: Acute Plan Acute CVA -Symptoms highly suspicious for acute CVA, posterior circulation, cerebellar -NIH stroke scale on admission was 0, out of tPA window nonetheless -Brain: No hemorrhage. No edema. Moderate diffuse cerebral atrophy and sequela of chronic small vessel ischemic disease. No mass effect. -ANTERIOR CIRCULATION: Right internal carotid artery: Intracranial segment is patent with no significant stenosis. No aneurysm. Right middle cerebral artery: No occlusion or significant stenosis. No aneurysm.? Right anterior cerebral artery: No occlusion or significant stenosis. No aneurysm.? Left internal carotid artery: Intracranial segment is patent with no significant stenosis. No aneurysm. Left middle cerebral artery: No occlusion or significant stenosis. No aneurysm.? Left anterior cerebral artery: No occlusion or significant stenosis. No aneurysm.? POSTERIOR CIRCULATION: Right vertebral artery: No occlusion or significant stenosis. No aneurysm.? Left vertebral artery: No occlusion or significant stenosis. No aneurysm.? Basilar artery: No occlusion or significant stenosis. No aneurysm. Right posterior cerebral artery: No occlusion or significant stenosis. No aneurysm.? Left posterior cerebral artery: No occlusion or significant stenosis. No aneurysm.? Brain: No definite mass, mass effect, or midline shift. Cerebral ventricles: No ventriculomegaly. Bones/joints: Unremarkable. No acute fracture. Soft tissues: Unremarkable. PROCEDURE INFORMATION: Exam: CTA Neck With Contrast Exam date and time: 04/15/2022 8:14 PM Age: 66 years old Clinical indication: Dizziness and giddiness; Prior surgery; Surgery type: Eye; Additional info: Dizzy TECHNIQUE: Imaging protocol: Computed tomographic angiography of the neck with contrast. 3D rendering (Not supervised by radiologist): MIP and/or 3D reconstructed images were created by the technologist. Radiation optimization: All CT scans at this facility use at least one of these dose optimization techniques: automated exposure control; mA and/or kV adjustment per patient size (includes targeted exams where dose is matched to clinical indication); or iterative reconstruction. Contrast material: OMNI 350; Contrast volume: 85 ml; Contrast route: INTRAVENOUS (IV);? COMPARISON: CT head wo con* [id number] 04/15/2022 8:11 PM RADIATION DOSE METRICS: Total DLP (mGy-cm): 532.12 FINDINGS: Right common carotid artery: No stenosis. No dissection or occlusion. Right internal carotid artery: No stenosis of the extracranial segment. No dissection or occlusion. Right external carotid artery: No occlusion or stenosis of the origin.? Left common carotid artery: No stenosis. No dissection or occlusion. Left internal carotid artery: No stenosis of the extracranial segment. No dissection or occlusion. Left external carotid artery: No occlusion or stenosis of the origin.? Right vertebral artery: No stenosis. No dissection or occlusion. Left vertebral artery: No stenosis. No dissection or occlusion. Soft tissues: Normal. No significant soft tissue swelling. Bones/joints: No acute fracture. CT/CT angio headneck* [id number] IMPRESSION: No large vessel stenosis or occlusion. ? -Has new onset ataxic gait, and dizziness, vertigo -Some of his vertigo symptoms seem similar to benign positional vertigo however no saccadic eye movements -He does complain of some lower back pain which is new Plan -Neurochecks, aspiration precautions, NIH stroke scale -PT OT, speech therapy eval -Aspirin, statin -Telemetry monitoring -We will order CT of the lumbar spine -MRI of the brain -Monitor closely -Full code -Lovenox for DVT prophylaxis Attestations Medical Necessity Statement*: Patient requires hospitalization, outpatient observation, for acute CVA Coding Level of Care Code Acute Trans Router for Wild Castrejon Diagnoses Acute CVA (cerebrovascular accident) I63.9
[2022-04-15 22:37] LABS: Troponin 5 2HR 25.88 ng/L (0-15); Troponin 5 2HR Delta 2.88 ABS# (0-10)
[2022-04-16] VITALS (17 sets, daily range): BP systolic 130–194; BP diastolic 65–85; PULSE 63–92; RESP 16–20; TEMP 36.8–37.1; O2SAT 88–93
[2022-04-16 00:13] LABS: Thyroid Stimulating Hormone 3.32 uIU/mL (0.27-4.20)
[2022-04-16] MEDS: aspirin 325 mg EC Tablet PO (00:24)
[2022-04-16] MEDS: atorvastatin 40 mg Tablet PO ×2 (00:24→20:23)
[2022-04-16] MEDS: enoxaparin 40 mg/0.4 mL Syringe SUBCUT ×2 (00:24→20:23)
[2022-04-16 00:34] LABS: Glucose Point of Care 200 mg/dL (70-110)
[2022-04-16 01:18] LABS: Troponin 5 6HR 26.73 ng/L (0-15)
[2022-04-16 01:21] LABS: Estmated Average Glucose 177; Hemoglobin A1C 7.8 % (4.0-6.0)
[2022-04-16 01:24] LABS: Troponin 5 6HR Delta 3.73 ng/L (0-12)
[2022-04-16] MEDS: ipratropium-albuterol 3 mL Neb INHALATION ×3 (02:20→18:31)
--- NOTE | 2022-04-16 02:26 | ECG_ITS ---
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 Measurements Intervals [place] Rate: 53 P: 52 NV: 206 QRS: -54 QRSD: 108 T: 94 QT: 422 QTc: 399 Interpretive Statements SINUS BRADYCARDIA LEFT AXIS DEVIATION [QRS AXIS < -30] POSSIBLE ANTERIOR MYOCARDIAL INFARCTION , OF INDETERMINATE AGE [30 ms Q WAVE IN V3/V4, OR R < 0.2 mV IN V4] Compared to ECG 04/15/2022 21:30:46 Left-axis deviation now present Sinus rhythm no longer present Myocardial infarct finding still present Electronically Signed On 04-16-2022 8:39:51 CDT by Alonzo Rich M.D. [id number]
[2022-04-16 06:13] LABS: Glucose Point of Care 168 mg/dL (70-110)
[2022-04-16] MEDS: lisinopril 20 mg Tablet 40 MG PO (08:26)
[2022-04-16] MEDS: pantoprazole DR 40 mg Tablet PO (08:26)
[2022-04-16] MEDS: tamsulosin 0.4 mg Capsule PO (08:27)
[2022-04-16] MEDS: aspirin 81 mg EC Tablet PO (08:27)
[2022-04-16] MEDS: insulin lispro 100 unit/1 mL SUBCUT ×2 (08:27→18:23)
[2022-04-16] MEDS: amlodipine 10 mg Tablet PO (08:27)
[2022-04-16] MEDS: spironolactone 25 mg Tablet PO (08:27)
[2022-04-16] MEDS: acetaminophen 325 mg Tablet 650 MG PO (09:31)
--- NOTE | 2022-04-16 09:42 | PC.NURSE ---
Patient is refusing to wear his oxygen.
--- NOTE | 2022-04-16 10:49 | PC.OT ---
OT EVALUATION ATTEMPTED. PATIENT LYING IN BED WHEEZING, STATES, I CAN'T BREATH; IT'S BEEN LIKE THIS FOR HOURS . PATIENT IS ON 2 L O2 AND O2 SATURATION MAINTAINING AT 95% THROUGHOUT CONVERSATION. INSTRUCTED ON PLB; STATES, I KNOW THAT BUT DOES NOT FOLLOW INSTRUCTIONS TO PERFORM PLB. NURSING INFORMED THAT PATIENT IS REQUESTING ORDERS FOR INHALER. WILL ATTEMPT EVALUATION AGAIN TOMORROW.
[2022-04-16] MEDS: ALPRAZolam 0.5 mg Tablet PO (11:09)
--- NOTE | 2022-04-16 11:16 | PC.PHAR ---
Patient states he uses [facility]. Called and spoke with a nurse from , . Verified patient's medications- Metformin 500mg BID last filled on 06/08/21 x 14 days - nurse states patient still takes med Amlodipine 10mg once daily - last filled on 01/02/22 x 30 days - nurse states patient still takes med Ozempic 0.5mg Q7D last filled on 01/20/22 x 28 days - nurse states patient still takes
[2022-04-16 11:59] LABS: Glucose Point of Care 215 mg/dL (70-110)
--- NOTE | 2022-04-16 15:45 | P.PN_ITS ---
Subjective Subjective: This morning he was complaining of being very anxious, feeling some numbness around the lower part of his bilateral face, lips. Subjectively feeling short of breath, although saturating well on baseline oxygen. Received breathing treatment with symptoms. Minimal dizziness. Incidentally does have history of suffering from anxiety in the past, including a panic attack. Vitals/I&O/Wt Last Vital Signs Temp 98.5 F 04/16/22 11:08 Pulse 77 04/16/22 11:15 Resp 17 04/16/22 11:15 BP 151/78 04/16/22 11:08 Pulse Ox 92 04/16/22 11:15 O2 Del Method 04/16/22 11:15 O2 Flow Rate 3 04/16/22 11:15 04/16/22 04/16/22 04/16/22 06:59 14:59 22:59 Intake Total 100 / 100 840 / 840 Output Total 100 / 100 Balance 0 / 0 840 / 840 Weight last 48 hrs Weight 117.934 kg Physical Exam Narrative: Daughter at bedside. Const: COMMON NORMALS: patient oriented x3 and alert GENERAL APPEARANCE: cooperative ORIENTATION/CONSCIOUSNESS: Yes awake HENMT: COMMON NORMALS: oropharynx normal Neck/C-Spine: COMMON NORMALS: no meningeal signs and no JVD Resp: COMMON NORMALS: normal respiratory effort AUSCULTATION: wheezes Cardio: COMMON NORMALS: no JVD, regular rhythm, S1 normal heart sound present, S2 normal heart sound present and No murmurs present (Cardio) RHYTHM: regular rhythm HEART SOUNDS: S1 normal heart sound present and S2 normal heart sound present GI: COMMON NORMALS: Normal to inspection, nondistended, normoactive bowel sounds present, Soft to palpation and non-tender PALPATION: Yes Soft to palpation Extremity: COMMON NORMALS: no joint enlargement and no pedal edema Neuro: COMMON NORMALS: patient oriented x3 and moves all extremities SENSORIUM/ORIENTATION: Yes alert MENINGEAL SIGNS: Yes no meningeal signs COORDINATION/BALANCE: [id number] test normal SPEECH: speech normal SENSORY EXAM: Yes extremities (Symmetrical) and Normal double simultaneous stimulation for sensation; No sensory level loss detected MOTOR EXAM: Pronator motor function not present and no asterixis COORDINATION: [id number] test normal Skin: COMMON NORMALS: no rashes or lesions noted GENERAL SKIN EXAM: no rashes or lesions noted Data : 04/15/22 19:00 04/15/22 19:00 A&P Assessment and plan (1) Acute CVA (cerebrovascular accident): Acute CVA -Symptoms highly suspicious for acute CVA, posterior circulation, cerebellar Pending MRI. Continue aspirin, statin, monitor blood pressures, will reduce the dose of his antihypertensives given suspected possible posterior CVA, PT, OT assessment.? Status: Acute (2) Acute bronchitis: Acute bronchitis, possible asthma exacerbation. Dyspnea, wheezing. Eosinophil level appears at baseline. Add scheduled, continue as needed breathing treatments. Add budesonide. Oxygen support as usual. Normally on 4 L. Wean down as tolerating. Status: Acute Plan Lower back pain: Lumbar spine CT without acute findings. End-stage CHF: Resume hospice care at discharge. As needed Xanax for anxiety. DM2 HTN MARIA L Pulmonary hypertension Mitral regurgitation Attestations Medical Necessity Statement*: Continue admission for assessment management of possible acute CVA, acute bronchitis, asthma exacerbation, and gentleman with underlying CHF. 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
[2022-04-16 16:34] LABS: Glucose Point of Care 206 mg/dL (70-110)
[2022-04-16] MEDS: budesonide 0.5 mg/2 mL Neb INHALATION (20:14)
[2022-04-16 21:56] LABS: Glucose Point of Care 218 mg/dL (70-110)
[2022-04-17] VITALS (14 sets, daily range): BP systolic 106–168; BP diastolic 67–85; PULSE 69–98; RESP 18–32; TEMP 36.6–36.9; O2SAT 86–93
[2022-04-17 05:04] LABS: Basophils # 0.1 10^3/uL (0.0-0.1); Basophils % 1.2 %; Eosinophils # 1.5 10^3/uL (0.0-0.8); Eosinophils % 19.9 %; Hematocrit 48.1 % (42.0-52.0); Hemoglobin 15.7 g/dL (11.7-16.6); Lymphocytes # 0.8 10^3/uL (0.8-4.8); Lymphocytes % 11.1 %; Mean Corpuscular HGB Conc 32.6 g/dL (30.0-36.0); Mean Corpuscular Hemoglobin 31.2 pg (28.0-34.0); Mean Corpuscular Volume 95.6 fl (80-94); Mean Platelet Volume 11.6 fL (7.4-10.4); Monocytes # 0.5 10^3/uL (0.2-0.9); Monocytes % 7.3 %; Neutrophils # 4.44 10^3/uL (1.8-7.7); Neutrophils % 60.2 %; Nucleated Red Blood Cells % 0 %; Platelet Count 197 10^3/cmm (130-400); Red Blood Count 5.03 10^6/uL (4.1-5.3); Red Cell Distribution Width 12.2 % (12.1-15.1); White Blood Count 7.4 10^3/uL (4.0-10.0)
[2022-04-17 05:27] LABS: Anion Gap 14.4 (5-19); Blood Urea Nitrogen 22 mg/dL (8-23); Calcium 9.5 mg/dL (8.5-10.5); Carbon Dioxide 27 mmol/L (22-29); Chloride 100 mmol/L (98-107); Glomerular Filtration Rate 75.2 mL/min (90-130); Glucose 173 mg/dL (65-115); Osmolality Calculated 291 mOsm/kg (285-295); Potassium 4.4 mmol/L (3.5-5.1); Sodium 137 mmol/L (136-145)
[2022-04-17] MEDS: ipratropium-albuterol 3 mL Neb INHALATION ×3 (05:47→13:20)
[2022-04-17 08:16] LABS: Glucose Point of Care 217 mg/dL (70-110)
[2022-04-17] MEDS: aspirin 81 mg EC Tablet PO (08:39)
[2022-04-17] MEDS: FUROsemide 40 mg Tablet PO (08:39)
[2022-04-17] MEDS: amlodipine 10 mg Tablet 5 MG PO (08:40)
[2022-04-17] MEDS: tamsulosin 0.4 mg Capsule PO (08:40)
[2022-04-17] MEDS: pantoprazole DR 40 mg Tablet PO (08:40)
[2022-04-17] MEDS: lisinopril 20 mg Tablet PO (08:40)
[2022-04-17] MEDS: insulin lispro 100 unit/1 mL SUBCUT ×2 (08:41→12:45)
[2022-04-17] MEDS: spironolactone 25 mg Tablet 12.5 MG PO (08:42)
[2022-04-17] MEDS: budesonide 0.5 mg/2 mL Neb INHALATION (08:53)
--- NOTE | 2022-04-17 09:30 | MR_ITS ---
WS: [id number] MRI BRAIN WITHOUT CONTRAST HISTORY: dizzy, ataxic gait COMPARISON: Head CT 04/15/2022 TECHNIQUE: Diffusion imaging, multiplanar T1, T2 and FLAIR imaging obtained. FAST brain imaging terence col utilized due to patient's inability to remain still. Acute focal diffusion-weighted infarct involving the LEFT posterior lateral medulla. Infarct involves the very small portion of the lateral medullary. No hemorrhage. Mild atrophy. There is diffuse confluent and patchy T2 and FLAIR signal hyperintensities in a periven tricular distribution but also extending supratentorial and into the kerline bilaterally. Ventricles and extra-axial spaces are normal. No inferior displacement of cerebellar tonsils. The sella turcica and pituitary gland are unremarkabl e. Dural venous sinuses and [place] of [place] demonstrate no abnormality on this unenhanced studies. Paranasal sinuses: Extensive mucoperiosteal thickening involving the sinus cavities. No air-fluid lev els. Mastoid air cells: LEFT mastoid air cell effusion. Calvarium and scalp: Intact. MR/MR head wo con* [id number] IMPRESSION: 1. Small acute LEFT posterior lateral medullary infarct. No hemorrhage. No add itional infarcts. 2. Additional severe small vessel ischemic disease throughout the white matter . Notified Dr. Gamble at 04/17/2022 4:17 PM.
[2022-04-17 11:26] LABS: Glucose Point of Care 221 mg/dL (70-110)
--- NOTE | 2022-04-17 11:51 | P.DS_ITS ---
Discharge Providers Date of Admission: 04/15/22 23:29 Date of Discharge: April 17, 2022 Attending Provider at Admission: Carlos Alberto Mtz MD Attending Provider at Discharge: Jose Xie MD Primary Care Provider: William Rodriguez Diagnoses at Discharge Discharge Diagnosis (1) Acute CVA (cerebrovascular accident): Status: Acute (2) Acute bronchitis: Status: Acute Reason for Visit Reason for Visit: DIZZY Hospital Course Hospital Course 66-year-old gentleman on hospice care secondary to end-stage congestive heart failure, with history of eosinophilic asthma, chronic dyspnea, CHF, came to the hospital due to new ataxia, vertigo, with concern for possible CVA, MRI requested by the admitting doctor, noted to have some acute bronchitis/asthma exacerbation. Started on scheduled breathing treatments, inhaled steroid, Xanax for anxiety that improved his symptoms. Remained afebrile, no leukocytosis. Head and neck CTA unremarkable, lumbar spine CT unremarkable. I requested B12 level. Physical Exam Narrative: Patient is on 2 L nasal cannula Awake and alert Nonfocal neuro exam Able to move his extremities without any discomfort Abdomen is distended patient is stating this is how his abdomen is mostly is, flank distention noted, nontender Awake and alert Nonfocal neuro exam S1, S2 Able to follow commands Clinically does not look to be in volume overloaded state Discharge Data Studies Completed and Pending Completed Studies During Hospitalization Category Date Time Status CT angio headneck* [id number] Stat Cat Scan 04/15/22 19:[address] head wo con* [id number] Stat Cat Scan 04/15/22 19:[address] lumbar spine wo con* [id number] Stat Cat Scan 04/15/22 22:02 Completed XR chest 1V portable [id number] Stat Exams 04/15/22 19:23 Completed Pending at discharge Category Date Time Status Basic Metabolic Panel AM LABS Lab 04/18/22 04:00 Ordered Basic Metabolic Panel AM LABS Lab 04/19/22 04:00 Ordered Complete Blood Count w/Auto AM LABS Lab 04/18/22 04:00 Ordered Complete Blood Count w/Auto AM LABS Lab 04/19/22 04:00 Ordered MR head wo con* [id number] Stat MRI 04/17/22 09:30 Ordered Radiology Impressions Chest X-Ray 04/15/22 19:23 IMPRESSION: No acute findings. Head CT 04/15/22 19:32 IMPRESSION: No acute intracranial abnormality. Head/Neck CTA 04/15/22 19:32 IMPRESSION: No large vessel stenosis or occlusion. IMPRESSION: No stenosis or occlusion. REFERENCES: NASCET CRITERIA. The degree of stenosis in the cervical segment of the internal carotid artery is based on NASCET criteria. Normal is no stenosis. Mild is less than 50% stenosis. Moderate is 50-69% stenosis. Severe is 70% to 99% stenosis. Total occlusion is no detectable patent lumen. Lumbar Spine CT 04/15/22 22:02 IMPRESSION: No acute findings. Laboratory Results WBC 7.4 10^3/uL (4.0-10.0) 04/17/22 04:40 RBC 5.03 10^6/uL (4.1-5.3) 04/17/22 04:40 Hgb 15.7 g/dL (11.7-16.6) 04/17/22 04:40 Hct 48.1 % (42.0-52.0) 04/17/22 04:40 MCV 95.6 fl (80-94) H 04/17/22 04:40 MCH 31.2 pg (28.0-34.0) 04/17/22 04:40 MCHC 32.6 g/dL (30.0-36.0) 04/17/22 04:40 RDW 12.2 % (12.1-15.1) 04/17/22 04:40 Plt Count 197 10^3/cmm (130-400) 04/17/22 04:40 MPV 11.6 fL (7.4-10.4) H 04/17/22 04:40 Neut % (Auto) 60.2 % 04/17/22 04:40 Lymph % (Auto) 11.1 % 04/17/22 04:40 [place] % (Auto) 7.3 % 04/17/22 04:40 Eos % (Auto) 19.9 % 04/17/22 04:40 Baso % (Auto) 1.2 % 04/17/22 04:40 Neut # (Auto) 4.44 10^3/uL (1.8-7.7) 04/17/22 04:40 Lymph # (Auto) 0.8 10^3/uL (0.8-4.8) 04/17/22 04:40 [place] # (Auto) 0.5 10^3/uL (0.2-0.9) 04/17/22 04:40 Eos # (Auto) 1.5 10^3/uL (0.0-0.8) H 04/17/22 04:40 Baso # (Auto) 0.1 10^3/uL (0.0-0.1) 04/17/22 04:40 Nucleated RBC % (auto) 0 % 04/17/22 04:40 Nucleated RBCs # 0.0 /100WBC 04/17/22 04:40 Sodium 137 mmol/L (136-145) 04/17/22 04:40 Potassium 4.4 mmol/L (3.5-5.1) 04/17/22 04:40 Chloride 100 mmol/L (98-107) 04/17/22 04:40 Carbon Dioxide 27 mmol/L (22-29) 04/17/22 04:40 Anion Gap 14.4 (5-19) 04/17/22 04:40 BUN 22 mg/dL (8-23) 04/17/22 04:40 Creatinine 1.0 mg/dL (0.7-1.2) 04/17/22 04:40 GFR Calculation 75.2 mL/min (90-130) L 04/17/22 04:40 Glucose 173 mg/dL (65-115) H 04/17/22 04:40 POC Glucose 221 mg/dL (70-110) H 04/17/22 11:22 Estimat Average Glucose 177 04/15/22 19:00 Hemoglobin A1c 7.8 % (4.0-6.0) H 04/15/22 19:00 Calculated Osmolality 291 mOsm/kg (285-295) 04/17/22 04:40 Calcium 9.5 mg/dL (8.5-10.5) 04/17/22 04:40 Troponin T Baseline 23 ng/L (0-15) H 04/15/22 19:00 Troponin T 120 Minute 25.88 ng/L (0-15) H 04/15/22 22:04 Delta Troponin T 2.88 ABS# (0-10) 04/15/22 22:04 Troponin T Hi Sens 6Hr 26.73 ng/L (0-15) H 04/16/22 00:45 Troponin T Hi Sens 6Hr Delta 3.73 ng/L (0-12) 04/16/22 00:45 NT-Pro-B Natriuret Pep 193 pg/mL (0-125) H 04/15/22 19:00 TSH 3.32 uIU/mL (0.27-4.20) 04/15/22 22:04 Urine Color Yellow (Yellow) 04/15/22 19:46 Urine Appearance Clear (CLEAR) 04/15/22 19:46 Urine pH 5 (5-7) 04/15/22 19:46 Ur Specific [place] 1.015 (1.005-1.030) 04/15/22 19:46 Urine Protein Neg (Negative) 04/15/22 19:46 Urine Glucose (UA) Norm (Normal) 04/15/22 19:46 Urine Ketones Negative (Negative) 04/15/22 19:46 Urine Blood Neg (Negative) 04/15/22 19:46 Urine Nitrate Negative (Negative) 04/15/22 19:46 Urine Bilirubin Neg (Negative) 04/15/22 19:46 Urine Urobilinogen Neg mg/dL (Negative) 04/15/22 19:46 Ur Leukocyte Esterase Negative (Negative) 04/15/22 19:46 Vitals Last Vital Signs Temp 98.3 F 04/17/22 08:00 Pulse 93 04/17/22 09:02 Resp 20 H 04/17/22 08:55 BP 168/85 04/17/22 08:00 Pulse Ox 86 L 04/17/22 08:55 O2 Del Method 04/17/22 08:55 O2 Flow Rate 3 04/17/22 08:00 Discharge Plan Discharge Patient Disposition: Home Condition: Stable Prescriptions: New alprazolam [Xanax] 0.5 mg tablet 0.25 mg PO BID PRN (Reason: anxiety) Qty: 20 0RF Continued ipratropium-albuterol 0.5 mg-3 mg(2.5 mg base)/3 mL solution for nebulization 3 ml inhalation QID PRN (Reason: wheezing) Qty: 360 3RF albuterol sulfate 2.5 mg /3 mL (0.083 %) solution for nebulization 2.5 mg INHALATION Q6H Qty: 75 0RF (DME) AeroEclipse II Nebulizer Misc See Rx Instructions .ROUTE .MEDSUPPLY Qty: 1 0RF Rx Instructions: As directed tamsulosin 0.4 mg capsule 0.4 mg PO DAILY lisinopril 40 mg tablet 40 mg PO DAILY Qty: 30 0RF amlodipine 10 mg tablet 10 mg PO DAILY Qty: 30 0RF potassium chloride 20 mEq tablet extended release 20 meq PO DAILY Qty: 30 0RF Rx Instructions: Need follow-up for further refills albuterol sulfate [Ventolin HFA] 90 mcg/actuation Hfa Aerosol Inhaler 2 puff INHALATION Q4H PRN (Reason: Shortness Of Breath) Eye Vitamin 1 tab PO DAILY furosemide 40 mg tablet 40 mg PO BID metformin 500 mg Tablet 500 mg PO BID metoprolol succinate 100 mg Tablet Extended Release 24 Hr 100 mg PO DAILY spironolactone 25 mg Tablet 25 mg PO DAILY glimepiride 4 mg tablet 4 mg PO DAILY Ozempic 0.25 mg or 0.5 mg(2 mg/1.5 mL) Pen Injector 0.5 mg SUBCUT Q7D Trelegy Ellipta 200-62.5-25 mcg blister with device 1 inh INHALATION DAILY Discharge Orders: Discharge Order (Routine); Ordered 04/17/22 Ordered By: Jose Xie Referrals: Surjit Rodriguez DO [Referring] - 4-7 days Patient Instructions: Opioid Safety Discharge Attestations Time Spent in Discharge Care*: less than 30 min Quality Metrics Clinical Quality Measures [ No reported AMI, CVA or VTE this stay] Coding Level of Care Code Acute Chg FW DC note Diagnoses Acute CVA (cerebrovascular accident) I63.9 Acute bronchitis J20.9
[2022-04-17 12:49] LABS: Vitamin B12 983 pg/mL (232-1245)
--- NOTE | 2022-04-17 14:22 | PC.OT ---
OT EVALUATION NOT PERFORMED THIS DATE DUE TO SCHEDULED PATIENT DISCHARGE.
--- NOTE | 2022-04-17 16:44 | PC.NURSE ---
Discharged, follow up appointments and new medications discussed with patient and spouse. Verbalized understanding
== END 2022-04-17 16:47 | disposition home or self-care (01) ==
LOC: ER 19:40 → MEDSURG 23:41
PROVIDERS: Emergency Medicine; Internal Medicine; Admitting Provider Family Medicine; Emergency Provider Emergency Medicine; PCP Family Medicine; Visit Provider Internal Medicine
DX: I63.9 Cerebral infarction, unspecified (principal); J20.9 Acute bronchitis, unspecified; I11.0 Hypertensive heart disease with heart failure; I50.9 Heart failure, unspecified; E11.9 Type 2 diabetes mellitus without complications; G47.33 Obstructive sleep apnea (adult) (pediatric)
CPT/HCPCS: 36415; 36416; 70450; 70496; 70498; 70551; 71045; 72131; 80048; 81003; 82607; 82962; 83036; 83880; 84443; 84484; 85025; 92523; 92610; 93005; 94640; 96372; 97116; 97162; 99285; G0378; J1650; J1815; J7626; Q9967

== ENCOUNTER → 2022-05-01 13:47 | Outpatient (BNVA) | payer MEDICARE, SELFPAY | PROVIDERS: PCP Family Medicine; Visit Provider Surgery | DX: K42.9 Umbilical hernia without obstruction or gangrene (principal) | CPT/HCPCS: 99203 ==

== ENCOUNTER 2022-05-18 07:25 | Day surgery (SDC) | payer MEDICARE, SELFPAY ==
[2022-05-17 12:45] VITALS: BMI 38.2
[2022-05-18] VITALS (14 sets, daily range): BP systolic 142–164; BP diastolic 64–83; PULSE 60–69; RESP 16–18; TEMP 36.3–36.4; O2SAT 91–97
--- NOTE | 2022-05-18 08:05 | W.PM.OPSUD ---
Surgery/Procedure H&P Update DATE OF PROCEDURE: May 18, 2022 DATE H&P PERFORMED: 05/01/22 PREOP DIAGNOSIS: umbilical hernia PLANNED PROCEDURE: Operation Date: 05/18/22 08:45 Proposed Procedures p Laparoscopic Umbilical Hernia Repair(Not Applicable) - Albert Haque DO
[2022-05-18] MEDS: ceFAZolin 2,000 MG in sodium chloride 0.9% (plus) 50 ML 100 MG IV (08:29)
[2022-05-18 09:16] LABS: Glucose Point of Care 144 mg/dL (70-110)
--- NOTE | 2022-05-18 09:27 | P.OP_ITS ---
Operative Report Date of procedure: May 18, 2022 Pre-op diagnosis: Preop Diagnosis umbilical hernia Post-op diagnosis: same Procedure done: Laparoscopic repair of umbilical hernia with mesh Implants: 6 inch ventral light mesh Specimens removed/disposition: Hernia sac Surgeon: Dr. Albert Haque DO Anesthesia: General Estimated blood loss (mL): 5 Complications: None apparent Brief History: This is a very pleasant 67-year-old gentleman with a several year history of umbilical hernia. Repair was indicated. The risks and benefits were explained and documented. Procedure: Patient was wheeled into the operative room and placed on the OR table in a supine position. Abdomen was inspected prepped and draped in usual sterile fash ion. Time-out was performed and all present were in agreement. A 15 blade scalp was used to make a 5 millimeter incision left upper quadrant. A Veress needle was placed into the incision and intra-abdominal insufflation was brought to 15 millimeters of mercury. A 12 millimeter trocar was placed into the left lower quadrant. The energy but device was then used to cut out the hernia sac. A 6 inch ventral light mesh was placed into the abdomen and brought up through the umbilicus using an the Michael-Caitlyn. The mesh was then tacked in place in a double crown fashion. The skeleton of the mesh was removed via the left lower quadrant. The hernia sac was then removed from the abdomen via the left lower quadrant. The left lower quadrant port site was closed with an 0 Vicryl suture in a Michael-Caitlyn in a [id number] fashion. Incisions were closed with 4 O Vicryl in a subcuticular interrupted fashion. Skin glue was applied. A dressing that included cotton balls and a Tegaderm was placed over the umbilicus. Patient tolerated the procedure well.
[2022-05-18] MEDS: fentaNYL 50 mcg/mL INJ 2mL IVP (09:58)
[2022-05-18 10:05] LABS: Glucose Point of Care 168 mg/dL (70-110)
[2022-05-18] MEDS: HYDROcodone-acetaminophen 7.5-325 mg Tablet 1 TAB PO (11:56)
[2022-05-18] MEDS: sodium chloride 0.9% 1,000 ML 30 ML IV (12:25)
--- NOTE | 2022-05-18 16:48 | P.ANESASSM_ITS ---
Pre-Anesthetic Assessment Height/Weight: Height 1.8 m Weight 124.284 kg Temp Pulse Resp BP Pulse Ox O2 Del Method O2 Flow Rate 97.5 F L 64 18 152/66 91 2 05/18/22 12:00 05/18/22 12:00 05/18/22 12:00 05/18/22 12:00 05/18/22 12:00 05/18/22 12:00 05/18/22 11:00 Preop Diagnosis: umbilical hernia Operation Date: 05/18/22 08:45 Proposed Procedures p Laparoscopic Umbilical Hernia Repair(Not Applicable) - Albert Haque DO Familial anesthetic complications: none Was Beta Devon taken within 24 hours: Yes Was Clonidine taken within 24 hours: N/A Last intake: Intake Last Liquid Date 05/17/22 Last Liquid Time 20:00 Last Solid Date 05/17/22 Last Solid Time 20:00 Social No alcohol and No tobacco (h/o smoking) Exam alert, oriented x 3 and regular rate & rhythm Airway Submandibular: within normal limits Cervical ROM: within normal limits Mallampati: Class II Dentition: false (upper) Pulmonary Asthma, Chronic Obstructive Pulmonary Disease and Sleep Apnea CV/HEM Congestive Heart Failure, Hypertension and Murmur (MR) PHTN Metabolic Diabetes Mellitus and Morbid Obesity Anesthetic Plan ASA status: 3 Anesthesia: General Medications/Allergies Home Medications Medication Instructions Recorded Confirmed Last Taken Type lisinopril 40 mg tablet 40 mg PO DAILY #30 tabs 10/03/19 05/18/22 05/17/22 Rx Eye Vitamin 1 tab PO DAILY 10/14/19 05/01/22 Unknown History albuterol sulfate 90 mcg/actuation 2 puff inhalation Q4H PRN 10/14/19 05/17/22 Unknown History aerosol inhaler (Ventolin HFA) Shortness Of Breath amlodipine 10 mg tablet 10 mg PO DAILY #30 tabs 11/28/19 05/18/22 05/17/22 Rx albuterol sulfate 2.5 mg/3 mL 2.5 mg (3 mL) inhalation Q6H #75 mL 05/16/20 05/18/22 05/18/22 Rx (0.083 %) solution for nebulization nebulizers (AeroEclipse II #1 ea 05/16/20 05/01/22 Unknown Rx Nebulizer) tamsulosin 0.4 mg capsule 0.4 mg PO DAILY 08/12/20 05/18/22 05/17/22 History ipratropium 0.5 mg-albuterol 3 mg 3 ml inhalation QID PRN wheezing 12/13/20 05/18/22 05/17/22 Rx (2.5 mg base)/3 mL nebulization #360 mL soln potassium chloride 20 mEq 20 meq PO DAILY #30 tabs 12/20/21 05/18/22 05/17/22 Rx tablet,extended release fluticasone fur. 200 mcg-umeclid 1 inh inhalation DAILY 04/16/22 05/18/22 05/17/22 History 62.5 mcg-vilant 25 mcg inhalat.powder (Trelegy Ellipta) furosemide 40 mg tablet 40 mg PO BID 04/16/22 05/18/22 05/17/22 History glimepiride 4 mg tablet 4 mg PO DAILY 04/16/22 05/18/22 05/17/22 History metoprolol succinate 100 mg 100 mg PO DAILY 04/16/22 05/18/22 05/17/22 History tablet,extended release 24 hr semaglutide 0.25 mg or 0.5 mg (2 0.5 mg SUBCUT Q7D 04/16/22 05/18/22 05/17/22 History mg/1.5 mL) subcutaneous pen injector (Ozempic) spironolactone 25 mg tablet 25 mg PO DAILY 04/16/22 05/18/22 05/17/22 History alprazolam 0.5 mg tablet (Xanax) 0.25 mg PO BID PRN anxiety #20 tabs 04/17/22 05/18/22 05/17/22 Rx aspirin 81 mg tablet,delayed 81 mg PO DAILY #30 tabs 04/17/22 05/18/22 05/17/22 Rx release atorvastatin 40 mg tablet 40 mg PO DAILY #60 tabs 04/17/22 05/18/22 05/17/22 Rx clopidogrel 75 mg tablet (Plavix) 75 mg PO DAILY #20 tabs 04/17/22 05/18/22 Unknown Rx hydrocodone 7.5 mg-acetaminophen 1 tab PO Q6H PRN pain #20 tabs 05/18/22 Unknown Rx 325 mg tablet Allergies Allergy/AdvReac Type Severity Reaction Status Date / Time No Known Allergies Allergy Verified 05/17/22 12:51 [facility] Anesthesia Medical History Acute bronchitis Acute CVA (cerebrovascular accident) Ataxia Diabetes mellitus Hypertension Mitral regurgitation Obstructive sleep apnea Osteoarthritis of hands, bilateral Pulmonary hypertension Surgical History History of eye surgery Family History Mother Hypertension Social History Smoking and tobacco status: never smoked Smoking risk assessment/counseling performed?: No Alcohol intake: never Counseling given: No Counseling given: No Lives independently: Yes Household members: spouse Marital status: Current occupational status: retired History of recent travel: No Current gender identity: Male Data Anesthesia Cardiac Studies: Echocardiogram Ultrasound 07/12/20
--- NOTE | 2022-05-18 16:49 | ANE.PACU2 ---
Inpatient post-anesthesia follow up: Airway intact: Yes Vital signs: Temperature 97.5 F Pulse Rate 64 Respiratory Rate 18 Blood Pressure 152/66 Pulse Oximetry 91 Oxygen Delivery Me thod Room Air Oxygen Flow Rate 2 Fraction of Inspir ed Oxygen Hydration adequate: Yes Nausea and vomiting: No Pain level: 3 Mental status: Baseline
== END 2022-05-18 12:15 | disposition home or self-care (01) ==
PROVIDERS: PCP Family Medicine; Visit Provider Surgery
PROC: 0WQF4ZZ Repair Abdominal Wall, Percutaneous Endoscopic Approach (ICD-10-PCS; CPT 49652; principal; 2022-05-18 08:35)
DX: K42.9 Umbilical hernia without obstruction or gangrene (principal); J44.9 Chronic obstructive pulmonary disease, unspecified; G47.30 Sleep apnea, unspecified; I11.0 Hypertensive heart disease with heart failure; I50.9 Heart failure, unspecified; E11.9 Type 2 diabetes mellitus without complications; E66.01 Morbid (severe) obesity due to excess calories; Z68.38 Body mass index [BMI] 38.0-38.9, adult
CPT/HCPCS: 49652; 36416; 82962; 88302; J2370; J2405; J2704; J3010; J3490; J7030

== ENCOUNTER → 2022-05-30 13:33 | Outpatient (BNVA) | payer MEDICARE, SELFPAY | PROVIDERS: PCP Family Medicine; Visit Provider Surgery | DX: Z98.890 Other specified postprocedural states (principal); Z87.19 Personal history of other diseases of the digestive system | CPT/HCPCS: 99024 ==

== ENCOUNTER → 2023-05-21 09:50 | Outpatient (BNVA) | payer MEDICARE, SELFPAY | PROVIDERS: PCP Family Medicine; Visit Provider Nurse Practitioner Family | DX: Z20.822 Contact with and (suspected) exposure to COVID-19 (principal) | CPT/HCPCS: 87426 ==

== ENCOUNTER 2023-05-25 10:27 | Emergency (ER) | payer MEDICARE, SELFPAY ==
[2023-05-25] VITALS (7 sets, daily range): BP systolic 140; BP diastolic 73; PULSE 64–74; RESP 18–22; TEMP 36.9; O2SAT 88–97; BMI 36.2
--- NOTE | 2023-05-25 10:34 | XR_ITS ---
WS: [id number] Exam: XR chest 1V portable [id number] Date/Time of Exam: 05/25/2023 10:36 AM Reason For Exam: dyspnea/cough Comparison 04/15/2022. The lungs are fully expanded and clear. Normal cardiomediastinal silhouette. No pleural effusions. [place] structures are intact. Old RIGHT sixth rib fracture. IMPRESSION: 1. No acute cardiopulmonary finding.
--- NOTE | 2023-05-25 10:49 | W.ED.COVID ---
HPI - COVID General: Chief Complaint: COVID symptoms Stated Complaint: COVID+ Time Seen by Provider: 05/25/23 10:31 Source: patient Mode of arrival: ambulatory Limitations: no limitations Triage information: Has fever, cough or shortness of breath. Exposure to COVID + person last 14 days History of Present Illness: Six 8-year-old male with a history of severe COPD normally on 4 L by nasal cannula states last several days he has had a productive cough not felt well sore throat and myalgias subjective fever. He does not regularly use his oxygen. He denies any chest pain diarrhea. This morning he took a COVID home test which was positive. He has nebulizers at home he has not been using them. Cough mildly productive. COVID 19 common symptoms: positive productive cough, dyspnea, fatigue, body aches and nausea; negative fever(s) or chills COVID 19 other sytmptoms: negative chest pain Onset (ago): day(s) Severity: mild and rapidly worsening Pertinent comorbid conditions: diabetes, hypertension and COPD/respiratory disease Treatment prior to arrival: none COVID Results: SARS-CoV-2 Antigen (Rapid) negative (Negative) 05/21/23 09:50 SARS-CoV-2 RNA (RT-PCR) Not detected (NOT DETECTED) 05/16/20 17:35 Review of Systems Const: Reports: body aches and fatigue; Denies: fever(s) or chills Card: Denies: chest pain Resp: Reports: dyspnea, productive cough and wheezing GI: Reports: nausea; Denies: abdominal pain : Denies: dysuria, urinary frequency or urinary urgency Musc: Denies: neck pain or back pain Skin/Breast: Denies: rash PFSH ED PFSH: Medical History Acute bronchitis Acute CVA (cerebrovascular accident) Ataxia Diabetes mellitus Hypertension Mitral regurgitation Obstructive sleep apnea Osteoarthritis of hands, bilateral Pulmonary hypertension Surgical History History of eye surgery History of umbilical hernia repair 05/18/22 Family History Mother Hypertension Social History Smoking and tobacco/nicotine status: never used tobacco/nicotine Alcohol intake: never Substance/Drug Use: never Lives independently: Yes Household members: spouse Marital status: Current occupational status: retired Do you think of yourself as: Straight/Heterosexual Current gender identity: Male Physical Exam Const: GENERAL APPEARANCE: cooperative and comfortable ORIENTATION/CONSCIOUSNESS: Yes awake, Yes oriented to person, Yes oriented to place and Yes oriented to time HENMT: COMMON NORMALS: normocephalic, atraumatic and hearing grossly normal bilaterally HEAD & SCALP: normocephalic and atraumatic Resp: COMMON NORMALS: normal respiratory effort, No retractions and No use of accessory muscles AUSCULTATION: crackles and wheezes Cardio: COMMON NORMALS: regular rate, regular rhythm and No murmurs present (Cardio) RATE: regular rate RHYTHM: regular rhythm GI: COMMON NORMALS: Soft to palpation and No hepatosplenomegaly present AUSCULTATION: Yes normoactive bowel sounds PALPATION: Yes Soft to palpation, No Tenderness to palpation present (GI), No Guarding due to palpation present (GI) and Yes No hepatosplenomegaly present Extremity: COMMON NORMALS: normal to inspection, capillary refill normal, no clubbing, cyanosis or edema, no calf tenderness and no pedal edema Neuro: SENSORIUM/ORIENTATION: Yes oriented to person, Yes oriented to place and Yes oriented to time Skin: COMMON NORMALS: no rashes or lesions noted GENERAL SKIN EXAM: no rashes or lesions noted Course Vital Signs: Vital signs: Vital Signs Temperature 98.5 F 05/25/23 10:35 Pulse Rate 74 05/25/23 12:32 Respiratory Rate 20 H 05/25/23 12:32 Blood Pressure 140/73 05/25/23 12:32 Pulse Oximetry 97 05/25/23 12:32 Oxygen Delivery Me thod Nasal Cannula 05/25/23 11:44 Oxygen Flow Rate 3.5 05/25/23 11:44 MDM - COVID Medical Decision Making Patient is maintaining normal oxygen sats on 3 and half liters while at rest. He prefer to go home. Chest x-ray does not show anything acute. We will go ahead and discharge patient home on Paxlovid as well as dexamethasone because of his severe COPD. Use albuterol Atrovent nebulizers as needed for shortness of breath and cough recheck with his primary care doctor in 3 to 4 days return for any worsening symptoms. Medical Records I reviewed the patient's medical records. Lab Data I reviewed the patient's lab results. 05/25/23 11:08 05/25/23 11:08 Laboratory Results WBC 6.78 10^3/uL (3.29-11.43) 05/25/23 11:08 RBC 4.48 10^6/uL (3.85-5.65) 05/25/23 11:08 Hgb 14.30 g/dL (11.27-16.99) 05/25/23 11:08 Hct 42.9 % (37-53) 05/25/23 11:08 MCV 95.8 fl (82-101) 05/25/23 11:08 MCH 31.9 pg (27-33) 05/25/23 11:08 MCHC 33.3 g/dL (30-55) 05/25/23 11:08 RDW 13.1 % (12.1-15.1) 05/25/23 11:08 Plt Count 163 10^3/cmm (157-399) 05/25/23 11:08 MPV 11.0 fL (7.4-10.4) H 05/25/23 11:08 Neut % (Auto) 66.0 % 05/25/23 11:08 Lymph % (Auto) 8.8 % 05/25/23 11:08 [place] % (Auto) 18.6 % 05/25/23 11:08 Eos % (Auto) 5.8 % 05/25/23 11:08 Baso % (Auto) 0.7 % 05/25/23 11:08 Neut # (Auto) 4.47 10^3/uL (1.8-7.7) 05/25/23 11:08 Lymph # (Auto) 0.6 10^3/uL (0.8-4.8) L 05/25/23 11:08 [place] # (Auto) 1.3 10^3/uL (0.2-0.9) H 05/25/23 11:08 Eos # (Auto) 0.4 10^3/uL (0.0-0.8) 05/25/23 11:08 Baso # (Auto) 0.1 10^3/uL (0.0-0.1) 05/25/23 11:08 Nucleated RBC % (auto) 0 % 05/25/23 11:08 Nucleated RBCs # 0.0 /100WBC 05/25/23 11:08 Sodium 134 mmol/L (136-145) L 05/25/23 11:08 Potassium 4.1 mmol/L (3.5-5.1) 05/25/23 11:08 Chloride 100 mmol/L (98-107) 05/25/23 11:08 Carbon Dioxide 26 mmol/L (22-29) 05/25/23 11:08 Anion Gap 12.1 (5-19) 05/25/23 11:08 BUN 23 mg/dL (8-23) 05/25/23 11:08 Creatinine 1.1 mg/dL (0.7-1.2) 05/25/23 11:08 GFR Calculation 67.0 mL/min (90-130) L 05/25/23 11:08 Glucose 222 mg/dL (65-115) H 05/25/23 11:08 Calculated Osmolality 289 mOsm/kg (285-295) 05/25/23 11:08 Calcium 9.2 mg/dL (8.5-10.5) 05/25/23 11:08 Total Bilirubin 0.6 mg/dL (0.15-1.2) 05/25/23 11:08 AST 15 U/L (0-40) 05/25/23 11:08 ALT 15 U/L (0-41) 05/25/23 11:08 Alkaline Phosphatase 50 U/L (40-130) 05/25/23 11:08 Total Protein 6.9 g/dL (6.6-8.7) 05/25/23 11:08 Albumin 3.7 g/dL (3.5-5.2) 05/25/23 11:08 Globulin 3.2 g/dL (1.3-4.6) 05/25/23 11:08 SARS-CoV-2 Antigen (Rapid) negative (Negative) 05/21/23 09:50 SARS-CoV-2 RNA (RT-PCR) Not detected (NOT DETECTED) 05/16/20 17:35 All radiology interpretation(s) finalized by discharge Discharge Plan Discharge Patient Disposition: Home Clinical Impression: COVID-19, Pulmonary hypertension Condition: Stable Prescriptions: New Paxlovid 300 mg (150 mg x 2)-100 mg tablets,dose pack See Rx Instructions .ROUTE .COMPLEX Qty: 30 0RF Rx Instructions: orally per package directions ipratropium-albuterol 0.5 mg-3 mg(2.5 mg base)/3 mL solution for nebulization 3 ml inhalation Q4H PRN (Reason: shortness of breath or wheezing) Qty: 90 0RF dexamethasone 6 mg tablet 6 mg PO DAILY Qty: 7 0RF Held atorvastatin 40 mg tablet 40 mg PO DAILY Qty: 60 0RF Hold Instructions: Resume on 05/30/23. No Action ipratropium-albuterol 0.5 mg-3 mg(2.5 mg base)/3 mL solution for nebulization 3 ml inhalation QID PRN (Reason: wheezing) Qty: 360 3RF albuterol sulfate 2.5 mg /3 mL (0.083 %) solution for nebulization 2.5 mg INHALATION Q6H Qty: 75 0RF (DME) AeroEclipse II Nebulizer [facility] [place] See Rx Instructions .ROUTE .MEDSUPPLY Qty: 1 0RF Rx Instructions: As directed tamsulosin 0.4 mg capsule 0.4 mg PO DAILY lisinopril 40 mg tablet 40 mg PO DAILY Qty: 30 0RF amlodipine 10 mg tablet 10 mg PO DAILY Qty: 30 0RF potassium chloride 20 mEq tablet extended release 20 meq PO DAILY Qty: 30 0RF Rx Instructions: Need follow-up for further refills albuterol sulfate [Ventolin HFA] 90 mcg/actuation Hfa Aerosol Inhaler 2 puff INHALATION Q4H PRN (Reason: Shortness Of Breath) Eye Vitamin 1 tab PO DAILY furosemide 40 mg tablet 40 mg PO BID metoprolol succinate 100 mg Tablet Extended Release 24 Hr 100 mg PO DAILY spironolactone 25 mg Tablet 25 mg PO DAILY glimepiride 4 mg tablet 4 mg PO DAILY Trelegy Ellipta 200-62.5-25 mcg blister with device 1 inh INHALATION DAILY alprazolam [Xanax] 0.5 mg tablet 0.25 mg PO BID PRN (Reason: anxiety) Qty: 20 0RF aspirin 81 mg tablet,delayed release (DR/EC) 81 mg PO DAILY Qty: 30 0RF clopidogrel [Plavix] 75 mg tablet 75 mg PO DAILY Qty: 20 0RF Hold Instructions: Resume on 05/21/22. hydrocodone-acetaminophen 7.5-325 mg tablet 1 tab PO Q6H PRN (Reason: pain) Qty: 20 0RF Discharge Orders: Discharge ED (Routine); Ordered 05/25/23 Ordered By: José Miguel Patrick Referrals: William Rodriguez [Primary Care Provider] - Patient Instructions: COVID-19 (Coronavirus Disease 2019) (ED), Opioid Safety, Pain Management Coding Level of Care Code ED [facility] [employer] [facility]
[2023-05-25] MEDS: dexamethasone 10 mg/mL INJ IM (10:58)
[2023-05-25 11:14] LABS: Basophils # 0.1 10^3/uL (0.0-0.1); Basophils % 0.7 %; Eosinophils # 0.4 10^3/uL (0.0-0.8); Eosinophils % 5.8 %; Hematocrit 42.9 % (37-53); Lymphocytes # 0.6 10^3/uL (0.8-4.8); Lymphocytes % 8.8 %; Mean Corpuscular HGB Conc 33.3 g/dL (30-55); Mean Corpuscular Hemoglobin 31.9 pg (27-33); Mean Corpuscular Volume 95.8 fl (82-101); Monocytes # 1.3 10^3/uL (0.2-0.9); Monocytes % 18.6 %; Neutrophils # 4.47 10^3/uL (1.8-7.7); Nucleated Red Blood Cells % 0 %; Platelet Count 163 10^3/cmm (157-399); Red Blood Count 4.48 10^6/uL (3.85-5.65); Red Cell Distribution Width 13.1 % (12.1-15.1); White Blood Count 6.78 10^3/uL (3.29-11.43)
[2023-05-25 11:33] LABS: Alanine Aminotransferase 15 U/L (0-41); Albumin Level 3.7 g/dL (3.5-5.2); Alkaline Phosphatase 50 U/L (40-130); Anion Gap 12.1 (5-19); Aspartate Amino Transferase 15 U/L (0-40); Blood Urea Nitrogen 23 mg/dL (8-23); Calcium 9.2 mg/dL (8.5-10.5); Carbon Dioxide 26 mmol/L (22-29); Chloride 100 mmol/L (98-107); Globulin 3.2 g/dL (1.3-4.6); Glucose 222 mg/dL (65-115); Osmolality Calculated 289 mOsm/kg (285-295); Potassium 4.1 mmol/L (3.5-5.1); Sodium 134 mmol/L (136-145); Total Bilirubin 0.6 mg/dL (0.15-1.2); Total Protein 6.9 g/dL (6.6-8.7)
[2023-05-25] MEDS: albuterol 8 gm MDI 2 PUFF INHALATION (11:40)
== END 2023-05-25 12:34 | disposition home or self-care (01) ==
PROVIDERS: Emergency Provider Family Medicine; PCP Family Medicine
DX: U07.1 COVID-19 (principal); I27.20 Pulmonary hypertension, unspecified; Z79.84 Long term (current) use of oral hypoglycemic drugs; Z79.82 Long term (current) use of aspirin; Z79.02 Long term (current) use of antithrombotics/antiplatelets; Z86.73 Personal history of transient ischemic attack (TIA), and cerebral infarction without residual deficits; E11.9 Type 2 diabetes mellitus without complications; I10 Essential (primary) hypertension
CPT/HCPCS: 36415; 71045; 80053; 85025; 94640; 96372; 99284; J1100; J3535

== ENCOUNTER 2023-06-06 13:05 | Emergency (ER) | payer MEDICARE, SELFPAY ==
--- NOTE | 2023-06-06 13:08 | XR_ITS ---
WS: [id number] Portable AP upright chest, 06/06/2023 Clinical Data: sob Comparison: Portable chest, 05/25/2023 Findings: No nodules, masses or effusions are seen. The heart is slightly enlarged. The pulmonary vas cularity is not increased. No pneumonia or pneumothorax is seen. Impression: Mild cardiomegaly.
[2023-06-06 13:19] LABS: Glucose Point of Care 443 mg/dL (70-110)
[2023-06-06 13:25] VITALS: BP 188/89; PULSE 97; RESP 17; TEMP 36.4; O2SAT 92; BMI 36.2
[2023-06-06] MEDS: sodium chloride 0.9% 1,000 ML 999 ML IV (13:41)
[2023-06-06 13:45] LABS: Basophils # 0.1 10^3/uL (0.0-0.1); Basophils % 0.5 %; Eosinophils # 0.8 10^3/uL (0.0-0.8); Hematocrit 43.6 % (37-53); Lymphocytes # 0.8 10^3/uL (0.8-4.8); Lymphocytes % 5.4 %; Mean Corpuscular HGB Conc 33.7 g/dL (30-55); Mean Corpuscular Hemoglobin 31.6 pg (27-33); Mean Corpuscular Volume 93.8 fl (82-101); Mean Platelet Volume 11.5 fL (7.4-10.4); Monocytes % 6.7 %; Neutrophils % 81.4 %; Nucleated Red Blood Cells % 0 %; Platelet Count 191 10^3/cmm (157-399); Red Blood Count 4.65 10^6/uL (3.85-5.65); Red Cell Distribution Width 12.3 % (12.1-15.1)
[2023-06-06 13:55] VITALS: PULSE 90; RESP 20; O2SAT 93
[2023-06-06] MEDS: ipratropium-albuterol 3 mL Neb INHALATION (13:55)
[2023-06-06 13:57] VITALS: PULSE 89
[2023-06-06 14:01] VITALS: BP 188/89; PULSE 92; O2SAT 96
--- NOTE | 2023-06-06 14:07 | W.ED.SOB ---
HPI - SOB/Dyspnea General: Chief Complaint: Shortness of Breath/Dyspnea Stated Complaint: high blood sugar Time Seen by Provider: 06/06/23 13:08 Source: patient Mode of arrival: ambulatory Limitations: no limitations History of Present Illness: HPI Narrative: 68-year-old male states that he was diagnosed with COVID 2 weeks ago. He states he has been feeling improved over the last 2 days he has had some increased wheezing and shortness of breath. He states his glucose was also been running in the 400s as he has been on steroids. Denies any fevers denies any vomiting or diarrhea. Associated symptoms: Deny abdominal pain, chest pain, fever(s), nausea or vomiting Review of Systems Const: Denies: fever(s), chills, body aches or change in appetite ENMT: Denies: throat pain or dental pain Card: Denies: chest pain Resp: Reports: dyspnea GI: Denies: abdominal pain, nausea, vomiting or diarrhea : Denies: dysuria Musc: Denies: neck pain or back pain Skin/Breast: Denies: rash Neuro: Denies: headache(s) PFSH ED PFSH: Medical History Acute bronchitis Acute CVA (cerebrovascular accident) Ataxia Diabetes mellitus Hypertension Mitral regurgitation Obstructive sleep apnea Osteoarthritis of hands, bilateral Pulmonary hypertension Surgical History History of eye surgery History of umbilical hernia repair 05/18/22 Family History Mother Hypertension Social History Smoking and tobacco/nicotine status: never used tobacco/nicotine Alcohol intake: never Substance/Drug Use: never Lives independently: Yes Household members: spouse Marital status: Current occupational status: retired Do you think of yourself as: Straight/Heterosexual Current gender identity: Male Physical Exam Const: COMMON NORMALS: patient oriented x3 HENMT: COMMON NORMALS: normocephalic and atraumatic HEAD & SCALP: normocephalic and atraumatic Eye: COMMON NORMALS: Equal, round and reactive pupils present and EOMs intact bilaterally PUPIL: Yes Equal, round and reactive pupils present Neck/C-Spine: COMMON NORMALS: full ROM and supple Chest: COMMONS NORMALS: normal inspection of the chest and normal palpation of entire chest wall Resp: COMMON NORMALS: normal respiratory effort, No retractions and No use of accessory muscles AUSCULTATION: wheezes Cardio: COMMON NORMALS: regular rate, regular rhythm and No murmurs present (Cardio) RATE: regular rate RHYTHM: regular rhythm GI: COMMON NORMALS: Normal to inspection, nondistended, normoactive bowel sounds present, Soft to palpation, non-tender and no masses PALPATION: Yes Soft to palpation Extremity: COMMON NORMALS: normal to inspection and full ROM Neuro: COMMON NORMALS: patient oriented x3, moves all extremities and no focal motor deficits Psych: COMMON NORMALS: mental status grossly normal, Normal thought process present and cooperative THOUGHT PROCESS: Normal thought process present Skin: COMMON NORMALS: no rashes or lesions noted and no wounds GENERAL SKIN EXAM: no rashes or lesions noted Course Vital Signs: Vital signs: Vital Signs Temperature 97.6 F 06/06/23 13:25 Pulse Rate 91 06/06/23 16:13 Respiratory Rate 20 H 06/06/23 13:55 Blood Pressure 162/78 06/06/23 16:13 Pulse Oximetry 97 06/06/23 16:13 Oxygen Delivery Me thod Room Air 06/06/23 16:13 Oxygen Flow Rate 2 06/06/23 13:55 MDM - SOB/Dyspnea Medical Decision Making Patient presents here with hyperglycemia likely from his recent prednisone use his blood sugars improved. Some slight hypoxia and wheezing here is much improved after breathing treatments no longer requiring any oxygen's likely from post COVID he is stable for discharge she does have albuterol at home he is to scheduled he is return if worsening. Medical Records I reviewed the patient's medical records. Lab Data I reviewed the patient's lab results. 06/06/23 13:35 06/06/23 13:35 Labs/Radiology: Laboratory Results WBC 15.00 10^3/uL (3.29-11.43) H 06/06/23 13:35 RBC 4.65 10^6/uL (3.85-5.65) 06/06/23 13:35 Hgb 14.70 g/dL (11.27-16.99) 06/06/23 13:35 Hct 43.6 % (37-53) 06/06/23 13:35 MCV 93.8 fl (82-101) 06/06/23 13:35 MCH 31.6 pg (27-33) 06/06/23 13:35 MCHC 33.7 g/dL (30-55) 06/06/23 13:35 RDW 12.3 % (12.1-15.1) 06/06/23 13:35 Plt Count 191 10^3/cmm (157-399) 06/06/23 13:35 MPV 11.5 fL (7.4-10.4) H 06/06/23 13:35 Neut % (Auto) 81.4 % 06/06/23 13:35 Lymph % (Auto) 5.4 % 06/06/23 13:35 [place] % (Auto) 6.7 % 06/06/23 13:35 Eos % (Auto) 5.0 % 06/06/23 13:35 Baso % (Auto) 0.5 % 06/06/23 13:35 Neut # (Auto) 12.20 10^3/uL (1.8-7.7) H 06/06/23 13:35 Lymph # (Auto) 0.8 10^3/uL (0.8-4.8) 06/06/23 13:35 [place] # (Auto) 1.0 10^3/uL (0.2-0.9) H 06/06/23 13:35 Eos # (Auto) 0.8 10^3/uL (0.0-0.8) 06/06/23 13:35 Baso # (Auto) 0.1 10^3/uL (0.0-0.1) 06/06/23 13:35 Nucleated RBC % (auto) 0 % 06/06/23 13:35 Nucleated RBCs # 0.0 /100WBC 06/06/23 13:35 Sodium 131 mmol/L (136-145) L 06/06/23 13:35 Potassium 4.6 mmol/L (3.5-5.1) 06/06/23 13:35 Chloride 97 mmol/L (98-107) L 06/06/23 13:35 Carbon Dioxide 26 mmol/L (22-29) 06/06/23 13:35 Anion Gap 12.6 (5-19) 06/06/23 13:35 BUN 44 mg/dL (8-23) H 06/06/23 13:35 Creatinine 1.0 mg/dL (0.7-1.2) 06/06/23 13:35 GFR Calculation 74.8 mL/min (90-130) L 06/06/23 13:35 Glucose 463 mg/dL (65-115) H 06/06/23 13:35 POC Glucose 269 mg/dL (70-110) H 06/06/23 15:33 Calculated Osmolality 303 mOsm/kg (285-295) H 06/06/23 13:35 Calcium 9.0 mg/dL (8.5-10.5) 06/06/23 13:35 Total Bilirubin 0.4 mg/dL (0.15-1.2) 06/06/23 13:35 AST 19 U/L (0-40) 06/06/23 13:35 ALT 36 U/L (0-41) 06/06/23 13:35 Alkaline Phosphatase 76 U/L (40-130) 06/06/23 13:35 NT-Pro-B Natriuret Pep 299 pg/mL (0-125) H 06/06/23 13:35 Total Protein 6.7 g/dL (6.6-8.7) 06/06/23 13:35 Albumin 3.4 g/dL (3.5-5.2) L 06/06/23 13:35 Globulin 3.3 g/dL (1.3-4.6) 06/06/23 13:35 Urine Color Yellow (Yellow) 06/06/23 13:30 Urine Appearance Clear (CLEAR) 06/06/23 13:30 Urine pH 5 (5-7) 06/06/23 13:30 Ur Specific [place] 1.015 (1.005-1.030) 06/06/23 13:30 Urine Protein Neg (Negative) 06/06/23 13:30 Urine Glucose (UA) 4+ (Normal) H 06/06/23 13:30 Urine Ketones Negative (Negative) 06/06/23 13:30 Urine Blood Neg (Negative) 06/06/23 13:30 Urine Nitrate Negative (Negative) 06/06/23 13:30 Urine Bilirubin Neg (Negative) 06/06/23 13:30 Urine Urobilinogen Norm mg/dL (Negative) 06/06/23 13:30 Ur Leukocyte Esterase Negative (Negative) 06/06/23 13:30 All radiology interpretation(s) finalized by discharge Discharge Plan Discharge Patient Disposition: Home Clinical Impression: Hyperglycemia, Dyspnea Condition: Stable Prescriptions: No Action ipratropium-albuterol 0.5 mg-3 mg(2.5 mg base)/3 mL solution for nebulization 3 ml inhalation QID PRN (Reason: wheezing) Qty: 360 3RF albuterol sulfate 2.5 mg /3 mL (0.083 %) solution for nebulization 2.5 mg INHALATION Q6H Qty: 75 0RF (DME) AeroEclipse II Nebulizer Misc See Rx Instructions .ROUTE .MEDSUPPLY Qty: 1 0RF Rx Instructions: As directed tamsulosin 0.4 mg capsule 0.4 mg PO DAILY lisinopril 40 mg tablet 40 mg PO DAILY Qty: 30 0RF amlodipine 10 mg tablet 10 mg PO DAILY Qty: 30 0RF potassium chloride 20 mEq tablet extended release 20 meq PO DAILY Qty: 30 0RF Rx Instructions: Need follow-up for further refills albuterol sulfate [Ventolin HFA] 90 mcg/actuation Hfa Aerosol Inhaler 2 puff INHALATION Q4H PRN (Reason: Shortness Of Breath) Eye Vitamin 1 tab PO DAILY furosemide 40 mg tablet 40 mg PO BID metoprolol succinate 100 mg Tablet Extended Release 24 Hr 100 mg PO DAILY spironolactone 25 mg Tablet 25 mg PO DAILY glimepiride 4 mg tablet 4 mg PO DAILY Trelegy Ellipta 200-62.5-25 mcg blister with device 1 inh INHALATION DAILY alprazolam [Xanax] 0.5 mg tablet 0.25 mg PO BID PRN (Reason: anxiety) Qty: 20 0RF aspirin 81 mg tablet,delayed release (DR/EC) 81 mg PO DAILY Qty: 30 0RF clopidogrel [Plavix] 75 mg tablet 75 mg PO DAILY Qty: 20 0RF Hold Instructions: Resume on 05/21/22. atorvastatin 40 mg tablet 40 mg PO DAILY Qty: 60 0RF Hold Instructions: Resume on 05/30/23. hydrocodone-acetaminophen 7.5-325 mg tablet 1 tab PO Q6H PRN (Reason: pain) Qty: 20 0RF Paxlovid 300 mg (150 mg x 2)-100 mg tablets,dose pack See Rx Instructions .ROUTE .COMPLEX Qty: 30 0RF Rx Instructions: orally per package directions ipratropium-albuterol 0.5 mg-3 mg(2.5 mg base)/3 mL solution for nebulization 3 ml inhalation Q4H PRN (Reason: shortness of breath or wheezing) Qty: 90 0RF dexamethasone 6 mg tablet 6 mg PO DAILY Qty: 7 0RF Discharge Orders: Discharge ED (Routine); Ordered 06/06/23 Ordered By: Robbin Bhakta Referrals: William Rodriguez [Primary Care Provider] - 1-3 days Discharge Diet: Advance as tolerated Discharge Activity: Resume usual activity Patient Instructions: Dyspnea (ED), Diabetic Hyperglycemia (ED) Coding Level of Care Code ED [employer] [facility]
[2023-06-06 14:21] LABS: Alanine Aminotransferase 36 U/L (0-41); Albumin Level 3.4 g/dL (3.5-5.2); Alkaline Phosphatase 76 U/L (40-130); Anion Gap 12.6 (5-19); Aspartate Amino Transferase 19 U/L (0-40); Blood Urea Nitrogen 44 mg/dL (8-23); Carbon Dioxide 26 mmol/L (22-29); Chloride 97 mmol/L (98-107); Globulin 3.3 g/dL (1.3-4.6); Glomerular Filtration Rate 74.8 mL/min (90-130); Glucose 463 mg/dL (65-115); NT Pro B Type Natriuretic Pept 299 pg/mL (0-125); Osmolality Calculated 303 mOsm/kg (285-295); Potassium 4.6 mmol/L (3.5-5.1); Sodium 131 mmol/L (136-145); Total Bilirubin 0.4 mg/dL (0.15-1.2); Total Protein 6.7 g/dL (6.6-8.7)
[2023-06-06 14:31] LABS: Add Urine Microscopic? NO; Charge for UA Resulting for Rev
[2023-06-06 14:35] LABS: Bilirubin Urine Neg (Negative); Blood Urine Neg (Negative); Glucose Urine UA 4+ (Normal); Ketones Urine Negative (Negative); Leukocyte Esterase Urine Negative (Negative); Nitrate Urine Negative (Negative); Protein Urine Neg (Negative); Specific Gravity, Urine 1.015 (1.005-1.030); Urine Appearance Clear (CLEAR); Urine Color Yellow (Yellow); Urobilinogen Urine Norm (Negative); pH Urine 5 (5-7)
[2023-06-06 14:56] LABS: Glucose Point of Care 439 mg/dL (70-110)
[2023-06-06] MEDS: insulin regular-human 100 units/1 mL 10 UNIT IVP (15:02)
[2023-06-06 15:35] LABS: Glucose Point of Care 269 mg/dL (70-110)
[2023-06-06 16:04] VITALS: O2SAT 91; O2SAT 93
[2023-06-06 16:13] VITALS: BP 162/78; PULSE 91; O2SAT 97
== END 2023-06-06 16:16 | disposition home or self-care (01) ==
PROVIDERS: Emergency Provider Emergency Medicine; PCP Family Medicine
DX: E11.65 Type 2 diabetes mellitus with hyperglycemia (principal); R06.00 Dyspnea, unspecified; Z79.84 Long term (current) use of oral hypoglycemic drugs; Z79.82 Long term (current) use of aspirin; Z79.02 Long term (current) use of antithrombotics/antiplatelets; Z86.73 Personal history of transient ischemic attack (TIA), and cerebral infarction without residual deficits; I10 Essential (primary) hypertension
CPT/HCPCS: 36416; 71045; 80053; 81003; 82962; 83880; 85025; 94640; 96361; 96374; 99284; J1815; J7030

== ENCOUNTER 2023-06-21 09:41 | Emergency (ER) | payer MEDICARE, SELFPAY ==
[2023-06-21 09:42] VITALS: BP 172/85; PULSE 93; RESP 20; TEMP 36.7; O2SAT 92; BMI 39.0
--- NOTE | 2023-06-21 10:03 | ED.C_ITS ---
HPI - Psych General: Chief Complaint: Psychiatric Symptoms Stated Complaint: manic episodes post substance abuse Time Seen by Provider: 06/21/23 09:47 Source: patient Mode of arrival: ambulatory History of Present Illness: Six 8-year-old male presents to the emergency room. Presents via EMS supposedly the complaint from the family as he was having manic episodes after abusing substances he denies any substance abuse. He was recently seen for COVID approximately 1 month ago. He is on glimepiride and pioglitazone, While having COVID he was on dexamethasone, couple of weeks. He denies any other injuries he denies using any substances. When it specifically challenged that the report was he had been using some substances in the last couple days and been manic he tells me I was misinformed. He has not been aggressive or confrontational once his blood sugars checked he says he does not want to be here and wants to leave. there are no family members accompanying him at this time. Review of Systems Const: Denies: fever(s) or chills Card: Denies: chest pain Resp: Denies: dyspnea GI: Denies: abdominal pain : Denies: dysuria, urinary frequency or urinary urgency Musc: Denies: neck pain or back pain Skin/Breast: Denies: rash PFSH ED PFSH: Medical History Acute bronchitis Acute CVA (cerebrovascular accident) Ataxia Diabetes mellitus Hypertension Mitral regurgitation Obstructive sleep apnea Osteoarthritis of hands, bilateral Pulmonary hypertension Surgical History History of eye surgery History of umbilical hernia repair 05/18/22 Family History Mother Hypertension Social History Smoking and tobacco/nicotine status: never used tobacco/nicotine Alcohol intake: never Substance/Drug Use: never Lives independently: Yes Household members: spouse Marital status: Current occupational status: retired Do you think of yourself as: Straight/Heterosexual Current gender identity: Male Physical Exam Const: COMMON NORMALS: no acute distress GENERAL APPEARANCE: cooperative and comfortable ORIENTATION/CONSCIOUSNESS: Yes awake, Yes oriented to person, Yes oriented to place and Yes oriented to time HENMT: COMMON NORMALS: normocephalic, atraumatic and hearing grossly normal bilaterally HEAD & SCALP: normocephalic and atraumatic Resp: COMMON NORMALS: normal respiratory effort, No retractions, No use of accessory muscles and clear to auscultation bilaterally AUSCULTATION: clear to auscultation bilaterally Cardio: COMMON NORMALS: regular rate, regular rhythm and No murmurs present (Cardio) RATE: regular rate RHYTHM: regular rhythm GI: COMMON NORMALS: Soft to palpation and No hepatosplenomegaly present AUSCULTATION: Yes normoactive bowel sounds PALPATION: Yes Soft to palpation, No Tenderness to palpation present (GI), No Guarding due to palpation present (GI) and Yes No hepatosplenomegaly present Extremity: COMMON NORMALS: normal to inspection, capillary refill normal, no clubbing, cyanosis or edema, no calf tenderness and no pedal edema Neuro: SENSORIUM/ORIENTATION: Yes oriented to person, Yes oriented to place and Yes oriented to time Skin: COMMON NORMALS: no rashes or lesions noted GENERAL SKIN EXAM: no rashes or lesions noted Course Vital Signs: Vital signs: Vital Signs Temperature 98.0 F 06/21/23 09:42 Pulse Rate 93 06/21/23 09:42 Respiratory Rate 20 H 06/21/23 09:42 Blood Pressure 172/85 06/21/23 09:42 Pulse Oximetry 92 06/21/23 09:42 Oxygen Delivery Me thod Room Air 06/21/23 09:42 MDM - Psych Medical Decision Making No suicidal homicidal thoughts he is not psychotic is not acutely hallucinating. He states he just wanted his blood sugar checked. I think he is probably been running high at times because the dexamethasone although he is completed that now. Follow-up with his primary care doctor regarding blood sugar control as well as reevaluating his blood pressure which is mildly elevated today. Medical Records I reviewed the patient's medical records. Lab Data I reviewed the patient's lab results. Laboratory Results POC Glucose 198 mg/dL (70-110) H 06/21/23 10:02 No radiology studies performed this visit Discharge Plan Discharge Patient Disposition: Home Clinical Impression: Hyperglycemia, Hypertension, Diabetes mellitus Condition: Stable Prescriptions: No Action ipratropium-albuterol 0.5 mg-3 mg(2.5 mg base)/3 mL solution for nebulization 3 ml inhalation QID PRN (Reason: wheezing) Qty: 360 3RF albuterol sulfate 2.5 mg /3 mL (0.083 %) solution for nebulization 2.5 mg INHALATION Q6H Qty: 75 0RF (DME) AeroEclipse II Nebulizer [facility] See Rx Instructions .ROUTE .MEDSUPPLY Qty: 1 0RF Rx Instructions: As directed tamsulosin 0.4 mg capsule 0.4 mg PO DAILY lisinopril 40 mg tablet 40 mg PO DAILY Qty: 30 0RF amlodipine 10 mg tablet 10 mg PO DAILY Qty: 30 0RF potassium chloride 20 mEq tablet extended release 20 meq PO DAILY Qty: 30 0RF Rx Instructions: Need follow-up for further refills albuterol sulfate [Ventolin HFA] 90 mcg/actuation Hfa Aerosol Inhaler 2 puff INHALATION Q4H PRN (Reason: Shortness Of Breath) Eye Vitamin 1 tab PO DAILY furosemide 40 mg tablet 40 mg PO BID metoprolol succinate 100 mg Tablet Extended Release 24 Hr 100 mg PO DAILY spironolactone 25 mg Tablet 25 mg PO DAILY glimepiride 4 mg tablet 4 mg PO DAILY Trelegy Ellipta 200-62.5-25 mcg blister with device 1 inh INHALATION DAILY alprazolam [Xanax] 0.5 mg tablet 0.25 mg PO BID PRN (Reason: anxiety) Qty: 20 0RF aspirin 81 mg tablet,delayed release (DR/EC) 81 mg PO DAILY Qty: 30 0RF clopidogrel [Plavix] 75 mg tablet 75 mg PO DAILY Qty: 20 0RF Hold Instructions: Resume on 05/21/22. atorvastatin 40 mg tablet 40 mg PO DAILY Qty: 60 0RF Hold Instructions: Resume on 05/30/23. hydrocodone-acetaminophen 7.5-325 mg tablet 1 tab PO Q6H PRN (Reason: pain) Qty: 20 0RF Paxlovid 300 mg (150 mg x 2)-100 mg tablets,dose pack See Rx Instructions .ROUTE .COMPLEX Qty: 30 0RF Rx Instructions: orally per package directions ipratropium-albuterol 0.5 mg-3 mg(2.5 mg base)/3 mL solution for nebulization 3 ml inhalation Q4H PRN (Reason: shortness of breath or wheezing) Qty: 90 0RF dexamethasone 6 mg tablet 6 mg PO DAILY Qty: 7 0RF Discharge Orders: Discharge ED (Routine); Ordered 06/21/23 Ordered By: José Miguel Patrick Referrals: William Rodriguez [Primary Care Provider] - Patient Instructions: Opioid Safety, Pain Management Activity Restrictions/Additional Instructions: ER discharge Continue your currently prescribed medications. When you were seen in the emergency room today your blood sugar and your blood pressure were elevated. They were not significantly elevated to require any emergent intervention but you should follow-up with your primary care doctor and reevaluate control of both blood sugar and blood pressure within the next 1 to 2 weeks. 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
[2023-06-21 10:05] LABS: Glucose Point of Care 198 mg/dL (70-110)
== END 2023-06-21 10:16 | disposition home or self-care (01) ==
PROVIDERS: Emergency Provider Family Medicine; PCP Family Medicine
DX: E11.65 Type 2 diabetes mellitus with hyperglycemia (principal); I10 Essential (primary) hypertension; Z79.02 Long term (current) use of antithrombotics/antiplatelets; Z79.82 Long term (current) use of aspirin; Z79.84 Long term (current) use of oral hypoglycemic drugs; Z86.73 Personal history of transient ischemic attack (TIA), and cerebral infarction without residual deficits
CPT/HCPCS: 36416; 82962; 99283

== ENCOUNTER 2023-09-27 12:58 | Outpatient (CLI) | payer BC, SELFPAY ==
--- NOTE | 2023-09-27 13:07 | USCV_ITS ---
Christian Lynch Age: 68 Gender: M : 1955 Exam Date: 09/27/2023 12:21 Ordering Phys: Surjit Rodriguez DO Technologist: SUJATHA Exam Location: [facility] [place] Indication: CHRONIC HEART FAILURE BP: 166 / 74 HR: 64 Rhythm: Sinus Technical Quality: Adequate MEASUREMENTS (Male / Female) Normal Values 2D ECHO LV Diastolic Diameter PLAX 4.8 cm 4.2 - 5.9 / 3.9 - 5.3 cm IVS Diastolic Thickness 2.0 cm 0.6 - 1.0 / 0.6 - 0.9 cm IVS Systolic Thickness 3.1 cm LVPW Diastolic Thickness 2.6 cm 0.6 - 1.0 / 0.6 - 0.9 cm LVPW Systolic Thickness 3.3 cm LVOT Diameter 2.0 cm LV Ejection Fraction 2D Teich 68.1 % LV Ejection Fraction MOD 2C 60.2 % LV Ejection Fraction 2C AL 0.0 % LA Diameter 3.9 cm RA Systolic Volume 4C AL 43.5 ml RA Systolic Volume 4C MOD 40.6 ml Aorta at Sinotubular Diameter 2.3 cm IVC Diameter 1.3 cm M-MODE LA Ao Ratio MM 1.3 AV Cusp Separation MM 1.5 cm DOPPLER AV Peak Velocity 187.0 cm/s LVOT Peak Velocity 162.0 cm/s AV Area Cont Eq vti 3.5 cm squared AV Area Cont Eq pk 2.7 cm squared MV Peak Velocity 167.0 cm/s MV Area PHT 2.6 cm squared Mitral E to A Ratio 0.8 TR Peak Velocity 211.0 cm/s TR Peak Gradient 17.8 mmHg TR Mean Velocity 182.0 cm/s TR Mean Gradient 13.8 mmHg TR Velocity Time Integral 52.1 cm TV Peak E Velocity 65.0 cm/s Right Atrial Pressure 3.0 mmHg Pulmonary Artery Systolic Pressu 20.8 mmHg PV Peak Velocity 131.0 cm/s RV Ejection Time 0.3 s FINDINGS Left Ventricle Normal left ventricular size and systolic function, EF 60%.Grade I/IV diastolic dysfunction (abnormal relaxation filling pattern), normal to mildly elevated filling pressures. Right Ventricle The right ventricle is normal in size and function. Right Atrium The right atrium is normal in size. Left Atrium The left atrium is normal in size. Mitral Valve No gross abnormalities noted Aortic Valve Thickened aortic valve. Tricuspid Valve Trace tricuspid valve regurgitation. Pulmonic Valve No gross abnormalities noted Pericardium Normal pericardium without effusion. Aorta Normal ascending aorta dimension. IVC Normal inferior vena cava. CONCLUSIONS Normal left ventricular size and systolic function, EF 60%.Grade I/IV diastolic dysfunction (abnormal relaxation filling pattern), normal to mildly elevated filling pressures. Thickened aortic valve. Trace tricuspid valve regurgitation. Estimated pulmonary artery peak systolic pressure 21 mmHg There is no pericardial effusion. There are no intracardiac masses. Compared to the study from 07/12/2020, there may not be a significant change. Dr Kathy Loomis MD FACC (Electronically Signed) Final Date: 30 September 2023 18:43 S
== END 2023-09-27 12:59 | disposition home or self-care (01) ==
LOC: RAD 12:59
PROVIDERS: PCP Family Medicine; Visit Provider Family Medicine
DX: I50.42 Chronic combined systolic (congestive) and diastolic (congestive) heart failure (principal); I08.2 Rheumatic disorders of both aortic and tricuspid valves
CPT/HCPCS: 93306

== ENCOUNTER 2023-11-07 09:12 | Day surgery (SDC) | payer MEDICARE, SELFPAY ==
[2023-11-07 09:20] VITALS: BP 149/93; PULSE 84; RESP 18; TEMP 36.6; O2SAT 93
--- NOTE | 2023-11-07 09:33 | ANES.PREANE2 ---
Pre-Anesthetic Assessment Height/Weight: Height 1.8 m Temp Pulse Resp BP Pulse Ox O2 Del Method 97.8 F 84 18 149/93 93 Room Air 11/07/23 09:20 11/07/23 09:20 11/07/23 09:20 11/07/23 09:20 11/07/23 09:20 11/07/23 09:20 Preop Diagnosis: + colon rectal screening Operation Date: 11/07/23 10:00 Proposed Procedures p 34002 colonoscopy G0105 screen colon h risk R19.5(Not Applicable) - Albert Haque DO Familial anesthetic complications: none Was Beta Devon taken within 24 hours: Yes Was Clonidine taken within 24 hours: N/A Last intake: Intake Last Liquid Date 11/06/23 Last Liquid Time 22:00 Last Solid Date 11/05/23 Last Solid Time 18:00 Social No alcohol and No tobacco Exam alert, oriented x 3 and regular rate & rhythm inspiratory wheezes Airway Submandibular: within normal limits Cervical ROM: within normal limits Mallampati: Class III Dentition: full Pulmonary Asthma and Shortness of Breath expiratory wheezes noted albuterol inhaler ordered ( patient requested states SOB is normal for him) CV/HEM Congestive Heart Failure and Hypertension 09/22 Normal left ventricular size and systolic function, EF 60%.Grade I/IV diastolic dysfunction (abnormal relaxation filling pattern), normal to mildly elevated filling pressures. Thickened aortic valve. Trace tricuspid valve regurgitation. Estimated pulmonary artery peak systolic pressure 21 mmHg There is no pericardial effusion. There are no intracardiac masses. Compared to the study from 07/12/2020, there may not be a significant change. Chronic Renal Insufficiency Hepatic None reported GI Gastroesophageal Reflux Disease Metabolic Diabetes Mellitus, Hyperlipidemia and Morbid Obesity Musc/skel Weakness (left side previous stroke) Neuropsych Cerebrovascular Accident Anesthetic Plan ASA status: 3 Anesthesia: MAC Medications/Allergies Home Medications Medication Instructions Recorded Confirmed Last Taken Type albuterol sulfate 90 mcg/actuation 2 puff inhalation Q4H PRN 10/14/19 11/07/23 3 Days Ago History aerosol inhaler (Ventolin HFA) Shortness Of Breath ~11/04/23 amlodipine 10 mg tablet 10 mg PO DAILY #30 tabs 11/28/19 11/07/23 11/05/23 Rx albuterol sulfate 2.5 mg/3 mL 2.5 mg (3 mL) inhalation Q6H #75 mL 05/16/20 11/07/23 3 Days Ago Rx (0.083 %) solution for nebulization ~11/04/23 nebulizers (AeroETrustifiipse II #1 ea 05/16/20 11/07/23 Unknown Rx Nebulizer) tamsulosin 0.4 mg capsule 0.4 mg PO DAILY 08/12/20 11/07/23 05/17/22 History ipratropium 0.5 mg-albuterol 3 mg 3 ml inhalation QID PRN wheezing 12/13/20 11/07/23 05/17/22 Rx (2.5 mg base)/3 mL nebulization #360 mL soln potassium chloride 20 mEq 20 meq PO DAILY #30 tabs 12/20/21 11/07/23 11/04/23 Rx tablet,extended release fluticasone fur. 200 mcg-umeclid 1 inh inhalation DAILY 04/16/22 11/07/23 11/04/23 History 62.5 mcg-vilant 25 mcg inhalat.powder (Trelegy Ellipta) furosemide 40 mg tablet 40 mg PO BID 04/16/22 11/07/23 1 Week Ago History ~10/31/23 glimepiride 4 mg tablet 4 mg PO DAILY 04/16/22 11/07/23 1 Week Ago History ~10/31/23 metoprolol succinate 100 mg 100 mg PO DAILY 04/16/22 11/07/23 11/07/23 History tablet,extended release 24 hr spironolactone 25 mg tablet 25 mg PO DAILY 04/16/22 11/07/23 1 Week Ago History ~10/31/23 aspirin 81 mg tablet,delayed 81 mg PO DAILY #30 tabs 04/17/22 11/07/23 11/02/23 Rx release atorvastatin 40 mg tablet 40 mg PO DAILY #60 tabs 04/17/22 11/07/23 11/04/23 Rx clopidogrel 75 mg tablet (Plavix) 75 mg PO DAILY #20 tabs 04/17/22 11/07/23 11/01/23 Rx ipratropium 0.5 mg-albuterol 3 mg 3 ml inhalation Q4H PRN shortness 05/25/23 11/07/23 Unknown Rx (2.5 mg base)/3 mL nebulization of breath or wheezing #90 mL soln empagliflozin 10 mg tablet 10 mg PO QAM 09/27/23 11/07/23 11/04/23 History (Jardiance) lisinopril 40 mg tablet 40 mg PO DAILY 11/05/23 11/07/23 1 Week Ago History ~10/31/23 Allergies Allergy/AdvReac Type Severity Reaction Status Date / Time No Known Allergies Allergy Verified 11/07/23 09:38 [facility] Anesthesia Medical History Acute bronchitis Ataxia Acute CVA (cerebrovascular accident) Osteoarthritis of hands, bilateral Mitral regurgitation Pulmonary hypertension Obstructive sleep apnea Diabetes mellitus Hypertension Surgical History History of umbilical hernia repair 05/18/22 History of eye surgery Family History Mother Hypertension Social History Smoking and tobacco/nicotine status: never used tobacco/nicotine Alcohol intake: never Substance/Drug Use: never Lives independently: Yes Household members: spouse Marital status: Current occupational status: retired Do you think of yourself as: Straight/Heterosexual Current gender identity: Male Data Anesthesia Cardiac Studies: Echocardiogram 09/27/23 Echocardiogram Ultrasound 07/12/20
[2023-11-07 09:40] VITALS: BMI 34.8
[2023-11-07 09:40] LABS: Glucose Point of Care 238 mg/dL (70-110)
[2023-11-07] MEDS: sodium chloride 0.9% 1,000 ML 30 ML IV (09:40)
--- NOTE | 2023-11-07 09:40 | P.HP_ITS ---
Providers/Chief Complaint Primary Care Provider: William Rodriguez Chief Complaint: R19.5 History of Present Illness Christian Lynch is a 68 year old male Review of Systems General: Reports: 10 or more systems reviewed and unremarkable except in HPI and below Medications/Allergies Home Medications Medication Instructions Recorded Confirmed Last Taken Type albuterol sulfate 90 mcg/actuation 2 puff inhalation Q4H PRN 10/14/19 11/07/23 3 Days Ago History aerosol inhaler (Ventolin HFA) Shortness Of Breath ~11/04/23 amlodipine 10 mg tablet 10 mg PO DAILY #30 tabs 11/28/19 11/07/23 11/05/23 Rx albuterol sulfate 2.5 mg/3 mL 2.5 mg (3 mL) inhalation Q6H #75 mL 05/16/20 11/07/23 3 Days Ago Rx (0.083 %) solution for nebulization ~11/04/23 nebulizers (AeroEnlyte Softwareipse II #1 ea 05/16/20 11/07/23 Unknown Rx Nebulizer) tamsulosin 0.4 mg capsule 0.4 mg PO DAILY 08/12/20 11/07/23 05/17/22 History ipratropium 0.5 mg-albuterol 3 mg 3 ml inhalation QID PRN wheezing 12/13/20 11/07/23 05/17/22 Rx (2.5 mg base)/3 mL nebulization #360 mL soln potassium chloride 20 mEq 20 meq PO DAILY #30 tabs 12/20/21 11/07/23 11/04/23 Rx tablet,extended release fluticasone fur. 200 mcg-umeclid 1 inh inhalation DAILY 04/16/22 11/07/23 11/04/23 History 62.5 mcg-vilant 25 mcg inhalat.powder (Trelegy Ellipta) furosemide 40 mg tablet 40 mg PO BID 04/16/22 11/07/23 1 Week Ago History ~10/31/23 glimepiride 4 mg tablet 4 mg PO DAILY 04/16/22 11/07/23 1 Week Ago History ~10/31/23 metoprolol succinate 100 mg 100 mg PO DAILY 04/16/22 11/07/23 11/07/23 History tablet,extended release 24 hr spironolactone 25 mg tablet 25 mg PO DAILY 04/16/22 11/07/23 1 Week Ago History ~10/31/23 aspirin 81 mg tablet,delayed 81 mg PO DAILY #30 tabs 04/17/22 11/07/23 11/02/23 Rx release atorvastatin 40 mg tablet 40 mg PO DAILY #60 tabs 04/17/22 11/07/23 11/04/23 Rx clopidogrel 75 mg tablet (Plavix) 75 mg PO DAILY #20 tabs 04/17/22 11/07/23 11/01/23 Rx ipratropium 0.5 mg-albuterol 3 mg 3 ml inhalation Q4H PRN shortness 05/25/23 11/07/23 Unknown Rx (2.5 mg base)/3 mL nebulization of breath or wheezing #90 mL soln empagliflozin 10 mg tablet 10 mg PO QAM 09/27/23 11/07/23 11/04/23 History (Jardiance) lisinopril 40 mg tablet 40 mg PO DAILY 11/05/23 11/07/23 1 Week Ago History ~10/31/23 Allergies Allergy/AdvReac Type Severity Reaction Status Date / Time No Known Allergies Allergy Verified 11/07/23 09:38 PFSH Acute PFSH: Medical History (Updated 11/07/23 @ 09:41 by Albert Haque DO) Family history of colon cancer Acute bronchitis Ataxia Acute CVA (cerebrovascular accident) Osteoarthritis of hands, bilateral Mitral regurgitation Pulmonary hypertension Obstructive sleep apnea Diabetes mellitus Hypertension Surgical History History of umbilical hernia repair 05/18/22 History of eye surgery Family History Mother Hypertension Social History Smoking and tobacco/nicotine status: never used tobacco/nicotine Alcohol intake: never Substance/Drug Use: never Lives independently: Yes Household members: spouse Marital status: Current occupational status: retired Do you think of yourself as: Straight/Heterosexual Current gender identity: Male Vitals/I&O/Wt Last Vital Signs Temp 97.8 F 11/07/23 09:20 Pulse 84 11/07/23 09:20 Resp 18 11/07/23 09:20 BP 149/93 11/07/23 09:20 Pulse Ox 93 04/10/24 09:20 O2 Del Method Room Air 11/07/23 09:20 A&P Assessment and plan (1) Positive colorectal cancer screening using Cologuard test: (2) Family history of colon cancer: Plan Colonoscopy Attestations Medical Necessity Statement*: Home Coding Level of Care Code Acute Code for Chg Fwd Diagnoses Positive colorectal cancer screening using Cologuard test R19.5 Family history of colon cancer Z80.0
[2023-11-07 09:54] VITALS: PULSE 71; RESP 16; O2SAT 92
[2023-11-07] MEDS: albuterol 2.5 mg/3 mL Neb INHALATION (09:54)
[2023-11-07 10:02] LABS: Anion Gap 13.7 (5-19); Blood Urea Nitrogen 28 mg/dL (8-23); Calcium 9.5 mg/dL (8.5-10.5); Carbon Dioxide 26 mmol/L (22-29); Chloride 104 mmol/L (98-107); Creatinine Clr Calc Pharmacy 93.0542; Glomerular Filtration Rate 74.8 mL/min (90-130); Glucose 227 mg/dL (65-115); Osmolality Calculated 301 mOsm/kg (285-295); Potassium 4.7 mmol/L (3.5-5.1); Sodium 139 mmol/L (136-145)
[2023-11-07 10:37] VITALS: BP 173/99; PULSE 84; RESP 18; TEMP 36.1; O2SAT 98
[2023-11-07 10:51] VITALS: BP 156/83; PULSE 83; RESP 18; O2SAT 95
--- NOTE | 2023-11-07 15:25 | ANE.PACU2 ---
Inpatient post-anesthesia follow up: Airway intact: Yes Vital signs: Temperature 97 F Pulse Rate 83 Respiratory Rate 18 Blood Pressure 156/83 Pulse Oximetry 95 Oxygen Delivery Me thod Room Air Oxygen Flow Rate 10 Fraction of Inspir ed Oxygen Hydration adequate: Yes Nausea and vomiting: No Pain level: 2 Mental status: Baseline
== END 2023-11-07 11:09 | disposition home or self-care (01) ==
PROVIDERS: Anesthesiology; PCP Family Medicine; Visit Provider Surgery
PROC: 0DJD8ZZ Inspection of Lower Intestinal Tract, Via Natural or Artificial Opening Endoscopic (ICD-10-PCS; CPT 45378; principal; 2023-11-07 10:00)
DX: Z12.11 Encounter for screening for malignant neoplasm of colon (principal); Z80.0 Family history of malignant neoplasm of digestive organs; K57.30 Diverticulosis of large intestine without perforation or abscess without bleeding; D12.5 Benign neoplasm of sigmoid colon; Z79.82 Long term (current) use of aspirin; Z86.73 Personal history of transient ischemic attack (TIA), and cerebral infarction without residual deficits; G47.33 Obstructive sleep apnea (adult) (pediatric); E11.9 Type 2 diabetes mellitus without complications; I11.0 Hypertensive heart disease with heart failure; I50.9 Heart failure, unspecified; E78.5 Hyperlipidemia, unspecified; I69.354 Hemiplegia and hemiparesis following cerebral infarction affecting left non-dominant side
CPT/HCPCS: 36415; 36416; 45385; 80048; 82962; 88305; 94640; J2704; J7030; J7613

== ENCOUNTER → 2025-02-10 13:10 | Outpatient (BNVA) | payer MEDICARE, SELFPAY | PROVIDERS: PCP Family Medicine; Visit Provider Internal Medicine | DX: E11.9 Type 2 diabetes mellitus without complications (principal); I50.41 Acute combined systolic (congestive) and diastolic (congestive) heart failure | CPT/HCPCS: 36415; 80053; 80061; 82044; 83036 ==

== ENCOUNTER 2025-03-15 15:00 | Emergency (ER) | payer MEDICARE, SELFPAY ==
--- OUTSIDE RECORDS SUMMARY | 2025-01-19 05:58 | XMS_ITS | Continuity of Care Document ---
Author Organization [facility] Address [address] [facility] [place] [address] Phone Care Team Providers Care [employer] Manager Name Role Phone Marcy Clark Unavailable Unavailable Procedures Procedure Date OFFICE O/P NEW LOW 30-44 MIN Advance Directives Directive Yes / No Effective Date File Name No Information Encounters Encounter Description Practice Location Reason(s) For Visit Diagnoses Date Provider Providers Copied on Encounter [facility], [address] [place], [place], [id number], [place] tel:[phone] [facility] No Information 5 Lakeisha Duganwna. [address] [place] [address], [address] [place] [address], [id number], [place]. tel:[phone] OFFICE O/P NEW LOW 30-44 MIN [facility], [address] [place], [place], [id number], [place] tel:[phone] [facility] ASAM physical (chief complaint) Essential (primary) hypertensionOt her stimulant abuse, uncomplicatedH yperlipidemia, unspecifiedCOP DType 2 diabetes mellitus without complications 5 Kelli Fairchild. [address] [place] [address], [id number] [place] [address], [id number], [place]. tel:[phone] Referring Provider: Gurinder Pereira, [address] [place], [place] [id number] [address] [place] [address], [id number] . tel:[phone] Family History Family Member Type Diagnosis Age At Onset No Information Payers Payer name Insurance type Covered alliance party ID Authorperfectoa jd(s) [employer] Medicare Advantage 16 [id number] Social History Type Description Quantity Date Captured Comments Sex Male Smoking Status No Information Sexual Orientation Straight or heterosexual Gender Identity Male Chief Complaint And Reason For Visit No Information Reason For Referral Reason For Referral No Information Plan Of Treatment Date Type Action Status Goal Foot exam. Due on due Goal Lipid panel. Due on due Goal GFR. Due on due Goal Dental exam. Due on due Goal ASCVD 10 year risk. Due on due Goal Hemoglobin A1C. Due on due Goal Dilated eye exam. Due on Dec due Goal Urine microalbumin. Due on due Goal FOBT. Due on due Goal FIT. Due on due Goal Tobacco screening. Due on due Goal BMI Adult Follow-Up. Due on due Goal Colonoscopy. Due on due Goal Diabetes screening. Due on due Goal Depression screening. Due on due Goal FIT-DNA. Due on due Goal BMI. Due on due Goal Influenza vaccine. Due on due Goal Hemoglobin A1C. Due on due Goal Urine microalbumin. Due on A due Goal Dilated eye exam. Due on Oct due Goal Influenza vaccine. Due on due Goal Depression screening. Due on due Goal Pneumococcal vaccine. Due on due Goal ASCVD 10 year risk. Due on A due Goal Foot exam. Due on due Goal GFR. Due on due Goal Dental exam. Due on due Goal Abdominal ultrasound. Due on due Goal Hepatitis C screening. Due o n due Goal Cognitive assessment. Due on due Goal CT-Colonography. Due on due Goal Zoster vaccine. Due on due Goal Unhealthy drug use screening . Due on due Goal Diabetes screening. Due on A due Goal FIT. Due on due Goal Pneumococcal Prevnar. Due on due Goal FIT-DNA. Due on due Goal Colonoscopy. Due on due Goal FOBT. Due on due Goal Tdap. Due on due Goal Zoster vaccine (1st). Due on due Goal Sigmoidoscopy. Due on due Goal Td vaccine. Due on due History Of Present Illness Encounter Date Complaint History Of Prese nt Illness ASAM physical Pt presents virt ually for ASAM physicalPatient is seen virtually/telehealth for ASAM physical. Patient has history of meth use. Last use was Magdi time. Denies any cravings. No side effects. Wants to work on sobriety. Is at Inpatient ASAM site. Doing well so far. Hx of HTN, HLD, DM2 BPH and COPD. Had hx of stroke. No residual deficits. Does report good compliance with seeing PCP for health issues. Reports able to self care and meet self ADLs. BPs have been in the 120/60s range. Does keep log. BGs 120-140 regularly. Good compliance with medications. Functional Status Date Functional Assessmen t No Information Instructions Date Instruction Additional Infor kim Lipitor 40mg daily. Related to H yperlipidemia, unspecified Trelegy 200mcg 1 puf f qamalbuterol hfa prn Related to COPD Continue with parth dia medication management. Accuchecks logsJardiance 10mg qamLantus 20 units QAMNovolog SS 3 units tid with meals plus ss post meals per PCP protocol. Related to Type 2 diabetes mellitus without complications Amlodipine 10mg qdMe toprolol er 100mg qdlisinopril 40mg qdplavix 75 mg qdlasix 40mg qamkcl er 20 meq qam with lasix Related to Essential (primary) hypertension Patient is medically cleared for ASAM program and treatment. Please see care plan and treatment plan in [facility] for ASAM. Will follow. Related to Other stimulant abuse, uncomplicated Assessments Type Assessment Date No Information Patient Care Teams Name Effective Dates (start - stop) Status Members No Information
--- OUTSIDE RECORDS SUMMARY | 2025-03-15 15:06 | XMS_ITS | Encounter Summary ---
Author Organization [facility] Address [address] [place] [address] Care Team Providers Care [employer] Regist[employer] Name Role Phone Surjit Rodriguez DO Primary Care Provider [phone] Encounter Details Date Type Department Care Team (Latest Contact Info) Description 10/19/2000 Outpatient [facility] [place] [phone] [place] [address] Phu France MD [address] [place] [address] Unspecified asthma(493.90) (Primary Dx); Viral warts, unspecified Social History Tobacco Use Types Packs/Day Years Used Date Smoking Tobacco: Never Assessed Sex and Gender Information Value Date Recorded Sex Assigned at Not on file 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
--- OUTSIDE RECORDS SUMMARY | 2025-03-15 15:06 | XMS_ITS | Encounter Summary ---
Author Organization [facility] Address [address] [place] [address] Care Team Providers Care Category Consultant Name Role Phone Surjit Rodriguez DO Primary Care Provider [phone] Encounter Details Date Type Department Care Team (Latest Contact Info) Description 08/19/1998 Outpatient [facility] [phone] [place] [address] Peña Doll MD NO ADDRESS ON FILE Unspecified asthma(493.90) (Primary Dx); Dermatophytosis of nail Social History Tobacco Use Types Packs/Day Years Used Date Smoking Tobacco: Never Assessed Sex and Gender Information Value Date Recorded Sex Assigned at Not on file 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
--- OUTSIDE RECORDS SUMMARY | 2025-03-15 15:06 | XMS_ITS | Clinical Summary ---
Author Organization [facility] Address [address] [place] [address] Care Team Providers Care Certified Pharmacy Tech Name Role Phone Surjit Rodriguez DO Primary Care Provider [phone] Allergies No known active allergies Medications docosahexaenoic acid/epa (FISH OIL ORAL) Take by mouth. 021 Active vit C/E/Zn/coppr/lute in/zeaxan (PRESERVISION AREDS-2 ORAL) Take by mouth. A ctive coenzyme Q10 100 mg capsule Take 100 mg by mouth daily. Active TURMERIC ORAL Take by mouth. A ctive efinaconazole 10 % Solution With ApplicatorIndicat ions:Onychomycosi s Apply to affected toenail(s) once daily for 48 weeks; ensure complete coverage of the toenail, the toenail folds, toenail bed, surrounding skin, and the undersurface of the toenail 8 mL 11 022 Active albuterol (PROVENTIL,VENTOL IN) 2.5 mg /3 mL (0.083 %) Solution for Nebulization 1 VIAL PER NEBULIZER 4 TIMES PER DAY NEEDED 180 mL 023 Active folic acid/multivit-min /lutein (CENTRUM SILVER ORAL) Take by mouth. Ac tive ipratropium-albut Abdias (DUONEB) 0.5 mg-3 mg(2.5 mg base)/3 mL Solution for NebulizationIndic ations:Asthma, unspecified asthma severity, unspecified whether complicated, unspecified whether persistent 1 VIAL PER NEBULIZER FOUR TIMES A DAY NEEDED FOR WHEEZING 360 mL 3 023 Active tadalafil (CIALIS) 10 mg tablet Take 10 mg by mouth 1 time daily as needed for Other (See Comment). 023 Active furosemide (LASIX) 40 mg tabletIndications :Chronic combined systolic and diastolic congestive heart failure (CMS/HCC) Take 1 Tablet (40 mg) by mouth daily. FOR SWELLING 30 Tablet 5 024 Active potassium chloride (MICRO-K EXTENCAPS) 10 mEq Extended Release capsuleIndication s:Chronic combined systolic and diastolic congestive heart failure (CMS/HCC) Take 2 Capsules (20 mEq) by mouth daily. 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 024 Active Additional Information Patient not taking.Reported on 08/18/2024 amitriptyline (ELAVIL) 25 mg tablet Take 1 Tablet (25 mg) by mouth daily at bedtime. 90 Tablet 1 024 Active tamsulosin (FLOMAX) 0.4 mg capsuleIndication s:Benign prostatic hyperplasia with lower urinary tract symptoms, symptom details unspecified TAKE 2 CAPSULES (0.8 MG) BY MOUTH DAILY. 180 Capsule 3 024 Active Additional Information Patient not taking.Reported on 09/29/2024 lisinopriL (PRINIVIL) 40 mg tabletIndications :Essential hypertension TAKE 1 TABLET (40 MG) BY MOUTH DAILY. 100 Tablet 3 024 Active empagliflozin (Jardiance) 10 mg tabletIndications :Type 2 diabetes mellitus with hyperglycemia, without long-term current use of insulin (CMS/[facility]) Take 1 Tablet (10 mg) by mouth daily in the morning. 100 Tablet 3 024 Active Additional Information Patient not taking.Reported on 08/18/2024 OTHERIndications: Other emphysema (CMS/HCC),MARIA L (obstructive sleep apnea) Simple face mask and oxygen tubing. 1 Each 3 024 Active Blood-Glucose Sensor (Dexcom G7 Sensor) DeviceIndications :Type 2 diabetes mellitus with stage 1 chronic kidney disease, with long-term current use of insulin ([facility]) Change device every 10 days. Use to monitor blood glucose continuously. DX E11.65 9 Each 3 Active Additional Information Patient not taking.Reported on 08/18/2024 oxygen home deliveryIndicatio ns:Other emphysema (CMS/[facility]),MARIA L (obstructive sleep apnea) Home Oxygen Concentrator yes at 2 L/M Rest, 4 L/M Activity, 2-4 L/M Sleep, Delivery Device: Mask, Conserving device on tank, straight if concentrator Portability: yes, 2 L/M Rest, 4 L/M Activity, May provide device best for patient needs(E system,home fill, conserving device) Length of Need: 99 months 1 Each Active insulin aspart U-100 (NovoLOG Flexpen U-100 Insulin) 100 unit/mL pen syringe Inject 3 Units by subcutaneous injection 3 times daily with meals. Sliding scale after meals: 2 units for fingerstick blood glucose 120-160 mg/dL, 4 units for fingerstick blood glucose 161-200 milligram/decil iter, 6 units for fingerstick blood glucose 201-240 mg/dL, 8 units for fingerstick blood glucose 241-280 mg/dL, 11 units for fingerstick blood glucose 281-320 mg/dL, 15 units for fingerstick blood glucose over 321 mg/dL 45 mL 3 Active insulin glargine (Lantus Solostar U-100 Insulin) 100 unit/mL pen syringeIndication s:Type 2 diabetes mellitus with stage 1 chronic kidney disease, with long-term current use of insulin ([facility]) Inject 20 Units by subcutaneous injection daily at bedtime. 21 mL 3 Active empagliflozin (Jardiance) 10 mg tablet Take 1 Tablet (10 mg) by mouth daily in the morning. 100 Tablet 3 Active dulaglutide (TRULICITY) 0.75 mg/0.5 mL injection Inject 0.5 mL (0.75 mg) by subcutaneous injection every 7 days. 6 mL 025 Active alcohol (BD Single Use Swabs Regular) Pads, Medicated Use to clean the area before injecting insulin 300 Each 3 Active Blood-Glucose Meter Kit Use to check blood sugars three times daily 1 Each 025 Active lancets Use to check blood sugars three times daily 300 Each 3 025 Active blood sugar diagnostic (Blood Glucose Test) Strip Use to check blood sugars three times daily 300 Each 3 025 Active Nebulizer & Compressor For Neb DeviceIndications :Moderate asthma without complication, unspecified whether persistent,Other emphysema (CMS/HCC) For use with nebulized medications. Dx: J45.909, J43.8 1 Each EA 025 Active atorvastatin (LIPITOR) 40 mg tabletIndications :Hyperlipidemia, unspecified hyperlipidemia type Take 1 Tablet (40 mg) by mouth daily. 100 Tablet 2 025 Active amLODIPine (NORVASC) 10 mg tabletIndications :Essential hypertension Take 1 Tablet (10 mg) by mouth daily. 100 Tablet 3 025 Active metoprolol succinate (TOPROL XL) 100 mg Extended Release 24 hour tablet Take 1 Tablet (100 mg) by mouth daily. 90 Tablet 025 Active fluticasone-umecl idinium-vilantero l (Trelegy Ellipta) 200-62.5-25 mcg Disk with DeviceIndications :Other emphysema (CMS/HCC),Moderat e asthma without complication, unspecified whether persistent TAKE 1 INHALATION ONCE A DAY 1 Each 5 025 Active albuterol sulfate HFA 90 mcg/actuation aerosol inhalerIndication s:Moderate asthma without complication, unspecified whether persistent INHALE 2 PUFFS BY MOUTH EVERY 4 HOURS NEEDED FOR SHORTNESS OF BREATH OR WHEEZING 8.5 Gram 2 025 Active albuterol sulfate HFA 90 mcg/actuation aerosol inhalerIndication s:Moderate asthma without complication, unspecified whether persistent INHALE 2 PUFFS BY MOUTH EVERY 4 HOURS NEEDED FOR SHORTNESS OF BREATH OR WHEEZING 8.5 Gram 2 025 2024 Discontinued tirzepatide (Mounjaro) 2.5 mg/0.5 mL Pen InjectorIndicatio ns:Uncontrolled type 2 diabetes mellitus with hyperglycemia, without long-term current use of insulin ([facility]) Inject 0.5 mL (2.5 mg) by subcutaneous injection every 7 days for 28 days. 2 mL 025 2024 Active Problems Problem Noted Date Diagnosed Date Type 2 diabetes mellitus without ophthalmic boris festations 12/06/2023 History of CVA (cerebrovascular accident) 2021 Macula-off rhegmatogenous retinal detachment, le ft 11/16/2020 Overview (11/26/2020): Pars plana vitrectomy, laser, gas: 11/16/2020 Chronic combined systolic an d diastolic congestive heart failure 04/01/2020 Overview (07/22/2024): 09/22: 09/27/23. Echocardiogram from [facility], in [facility] ventricular size and systolic function EF is at 60% grade 1 out of 4 diastolic dysfunction. Rest of anatomy is in normal size and function. ADDED PER PVQ RESPONSE DOS 03.30.2020 Updated per ambulatory coding query response 07.22.2024 AVD Pseudophakia of right eye 02/11/2019 Combined form of senile cataract of both eyes Glaucoma suspect of both eyes, f/u with Dr. Chacho young 05/15/2018 Intermediate stage nonexudat chad age-related macular degeneration of both eyes 05/15/2018 Retinal detachment with reti nal break, right, s/p PPV 05/16/2018 05/15/2018 Difficulty urinating 07/06/2017 Severe obesity (BMI 35.0-39. 9) with comorbidity of htn and dm. 07/06/2017 Sleep disturbance 07/06/2017 Family history of early CAD 10/31/2016 Essential hypertension 04/15/2015 Asthma 10/27/2013 Type 2 diabetes mellitus with hyperglycemia 07/2010 Hyperlipidemia Other emphysema Resolved Problems Problem Noted Date Diagnosed Date Resolved Date Vitreous hemorrhage, right, s/p PPV 05/16/2018 05/15/2018 03/30/2020 SOB (shortness of breath) 10/31/2016 Encounters Date Type Department Care Team Description 02/23/[address] [phone] Surjit Rodriguez, Moderate asthma without complication, unspecified whether persistent 02/13/2025 Telephone [facility] [address] [phone] Surjit Rodriguez DO New Prescription Request; Information 02/11/2025 External Device Data STL ABSTRACTION Provider, Abstract 02/10/2025 External Device Data STL ABSTRACTION Provider, Abstract 02/06/2025 Telephone [facility] End[facility] [place] [address] [place] [phone] Araceli Herrera, [employer] MATE G Documentation Only 02/06/2025 Telephone [facility] [address] [phone] Surjit Rodriguez DO Patient Communication 02/03/2025 External Device Data STL ABSTRACTION Provider, Abstract 01/28/2025 Orders Only [facility] [address] [phone] William Sotelo, OD 01/20/2025 Patient Outreach [facility] [address], [address] [place] [address] Lynne Riggins Medication Refill (ATORVASTATIN 40 MG TABLET/) 01/16/2025 Telephone [facility] [address] [address]tr[address], [address] [place] [phone] Provider, Abstract uorlogy referral appointment 01/15/2025 Refill [facility] [address] [phone] Surijt Rodriguez DO Other emphysema (Primary Dx); Moderate asthma without complication, unspecified whether persistent 01/05/2025 Refill [facility] [address] [phone] Surjit Rodriguez DO 01/05/2025 Refill [facility] [address] [phone] Surjit Rodriguez DO Moderate asthma without complication, unspecified whether persistent 12/30/2024 External Device Data STL ABSTRACTION Provider, Abstract 12/30/2024 External Device Data STL ABSTRACTION Provider, Abstract 12/29/2024 9:30 AM CDT Clinical Support [address] [phone] Urinary incontinence, unspecified type (Primary Dx); Nocturia 12/28/[address] [phone] William Rodriguez MD Essential hypertension 12/24/[address] [phone] Surjit Rodriguez DO Question; Dressing Removal 12/19/[address] [phone] Surjit Rodriguez DO 12/17/[address] [phone] Surjit Rodriguez DO Moderate asthma without complication, unspecified whether persistent 12/16/[address] [phone] Surjit Rodriguez DO 12/16/[address] [phone] Surjit Rodriguez DO from Last 3 Months Immunizations Immunization Administration Dates Next Due (PNEUMOVAX 23)(50 YRS UP) PN EUMOCOCCAL POLYSACCHARIDE (PPV23) 0.5 ML, IM 07/04/2017 (PREVNAR 20)(6 WKS UP) PNEUM OCOCCAL CONJUGATE VACCINE 20-VALENT (PCV20), POLYSACCHARIDE [id number] CONJUGATE, ADJUVANT 0.5 ML (PF) IM 01/09/2024 (SPIKEVAX) (12 YRS UP PRIMAR Y SERIES) COVID-19 VACCINE - MRNA-1273(PF) 100 MCG/0.5 ML IM SUSP 07/15/2021 INFLUENZA VACCINE QUADRIVALENT 3 YR UP PF IM 02/2018 INFLUENZA VACCINE QUADRIVALENT 6 MOS UP IM 08/11,07/04/2017 INFLUENZA VACCINE TRIVALENT SPLIT VIRUS, (6 MOS UP), 0.5ML (PF), IM 07/10/2024 Family History Medical History Relation Name Comments Detachment/Tears Brother Macular Degen Father Amblyopia Neg Hx Blindness Neg Hx Cancer Neg Hx Cataract Neg Hx Corneal Dystrophies Neg Hx Diabetes Neg Hx Fuchs' dystrophy Neg Hx Glaucoma Neg Hx Hypertension Neg Hx Keratoconus Neg Hx Strabismus Neg Hx Stroke Neg Hx Thyroid Disease Neg Hx Relation Name Status Comments Brother Father Social History Tobacco Use Types Packs/Day Years Used Date Smoking Tobacco: Former Cigarettes Q uit: 08/30/1982 Passive Smoke Exposure: Past Smokeless Tobacco: Never Tobacco Cessation:Counseling Given: Not Answered Alcohol Use Standard Drinks/Week Comments Not Currently 0 (1 standard drink = 0.6 oz pur e alcohol) Sex and Gender Information Value Date Recorded Sex Assigned at Not on file Legal Sex Male 10:58 AM ONION FARMER Gender Identity Not on file Sexual Orientation Not on file Last Filed Vital Signs Vital Sign Reading Time Taken Comments Blood Pressure 149/77 09/29/2024 3:33 PM ONION FARMER Pulse 60 09/29/2024 3:33 PM ONION FARMER Temperature 37 C (98.6 F) 09/29/2024 12:22 PM ONION FARMER Respiratory Rate 21 09/29/2024 3:33 PM ONION FARMER Oxygen Saturation 94% 09/29/2024 3:33 PM ONION FARMER Inhaled Oxygen Concentration - - Weight 116.1 kg (256 lb) 09/29/2024 12:22 PM ONION FARMER Height 180.3 cm (5' 11 ) 09/29/2024 12:22 PM ONION FARMER Body Mass Index 35.7 09/29/2024 12:22 PM ONION FARMER Plan of Treatment Upcoming Encounters Date Type Department Care Team (Late st Contact Info) Description 04/10/2025 9:00 AM CDT Office Visit [place] [address] [place] [phone] Surjit Rodriguez DO [address] [place] [phone] 04/16/2025 9:10 AM CDT Office Visit [facility] [place] [address] [place] [address] MD [address] [place] [address] Health Maintenance Due Date Last Done Comments FIT/ DNA Q 3 YEARS (AUTO ORDER) 1975 FLEX SIG/CT COLONOGRAPHY Q 5 YEARS (AUTO ORDER) 1975 DTAP/TDAP/TD VACCINES (1 - Tdap) 1976 FIT-DNA Q 3 years 2002 Flex Sig/CT Colonography Q 5 years 2002 ZOSTER VACCINE (1 of 2) 2007 RSV VACCINE (60+ or ) (1 - Risk 60-74 years 1-dose series) 2017 Abdominal Aortic Aneurysm (A AA) Screening 2022 COVID-19 Vaccine (4 - 2023-2 5 season) 2024 07/15/2021, 11/16/2020, 10/13/2020 OTISE uACR (Auto Order) 07/30/2024 11/29/2023 , 09/04/2023, 08/21/2022, Additional history exists Medicare Advantage ([place]) Preventative Visit/Annual Wellness Visit 07/30/2024 07/10/2024, 04/05/2023, 04/05/2023, Additional history exists FIT/FOBT Q 1 YEAR (AUTO ORDER) 08/29/2024 0 08/29/2023, 08/29/2023, 04/09/2023 FIT/FOBT Q 1 year 08/29/2024 08/29/2023 DIABETES MICROALBUMIN ANNUAL SCREEN 09/04/2024 09/04/2023, 08/21/2022, 05/31/2018, Additional history exists DIABETES: A1C (Auto Order) 11/11/202408/13, 04/08/2024, 01/09/2024, Additional history exists DIABETES HBA1C Q 6 MONTHS 02/10/20252024, 04/08/2024, 01/09/2024, Additional history exists INFLUENZA VACCINE (#1) 2025 4, 11/29/2023, 12/22/2022, Additional history exists DIABETES ANNUAL FOOT EXAM 08/13/20252024, 08/29/2023, 05/08/2022, Additional history exists LDL CHOLESTEROL ANNUAL 08/13/2025 5, 04/08/2024, 09/04/2023, Additional history exists DIABETES ANNUAL RETINAL EXAM 01/27/202607/2024, 04/16/2024, 04/16/2024, Additional history exists COLORECTAL CANCER SCREENING (AUTO ORDER) 11/06/2033 11/07/2023, 11/07/2023 COLORECTAL SCREENING 11/06/2033 11/07/2023, 11/07/19 24 Colorectal Cancer Screening (AUTO ORDER) 11/06/2033 Colorectal Cancer Screening 11/06/2033 PNEUMOCOCCAL VACCINE 50+ YEARS Completed 01/09/2024 , 07/04/2017 KHE eGFR (Auto Order) Completed 09/29/2024 , 08/18/2024, 08/13/2024, Additional history exists Medical Devices Implanted Type Area Bread Wrapping Machine Feeder Device Identifier Shelf Expiration Date Model / Serial / Lot Lens Io Tecnis 1pc 17.0 [id number] - [id number] Implanted:Qty: 1 on 02/11/2019 by Kwadwo Pedraza MD Eye Right: Eye [employer] 12/06/2022 [id number] / [id number] / Ring Tension Capsular Type 14c [id number] - [id number] Implanted:Qty: 1 on 02/11/2019 by Kwadwo Pedraza MD Eye Right: Eye [employer] 07/19/2023 [id number] / [id number] / [id number] Lens Io Tecnis 1pc 16.5 [id number] - [id number] Implanted:Qty: 1 on 02/25/2019 by Kwadwo Pedraza MD Eye Left: Eye [employer] 12/18/2020 [id number] / [id number] / Procedures Procedure Name Priority Date/Time Associated Diagnosis Comments AL BILAT DIL RETINAL EXAM Routine 01/27/2025 8:23 AM CDT COMPREHENSIVE METABOLIC PANEL Stat 09/29/2024 12:07 PM ONION FARMER LIPID PANEL Routine 08/13/2024 3:17 PM ONION FARMER Type 2 diabetes mellitus with hyperglycemia, without long-term current use of insulin ([facility]) HEMOGLOBIN A1C Routine 08/13/2024 3:17 PM ONION FARMER Type 2 diabetes mellitus with hyperglycemia, without long-term current use of insulin ([facility]) AL COLONOSCOPY FLX DX W/COLLJ SPEC WHEN PFRMD Routine 11/07/2023 9:24 AM CDT MICROALBUMIN/CREATININ E RATIO, RANDOM UR Routine 09/04/2023 8:22 AM ONION FARMER Type 2 diabetes mellitus with hyperglycemia, without long-term current use of insulin ([facility]) OCCULT BLOOD IMMUNOASSAY, COLORECTAL SCREEN Routine 08/29/2023 12:00 AM ONION FARMER Screening for colon cancer HM DIABETES FOOT EXAM 06/26/2017 12:00 AM ONION FARMER from Last 3 Months or Most Recently Relevant to Health Maintenance Results * AL BILAT DIL RETINAL EXAM (01/27/2025 8:23 AM CDT) William Sotelo OD AL - MEDICAL SERVICES Final Re sult [facility]# [id number] [address] [place] [address] * (ABNORMAL) COMPREHENSIVE METABOLIC PANEL (09/29/2024 12:07 PM ONION FARMER) SODIUM 134(L) 136 - 145 mmol/L 09/29/2024 12:57 PM ONION FARMER [facility] POTASSIUM 4.2 3.5 - 5.1 mmol/L 09/29/2024 12:57 PM ONION FARMER [facility] CHLORIDE 96(L) 98 - 107 mmol/L 09/29/2024 12:57 PM ONION FARMER [facility] CO2 28 22 - 29 mmol/L 09/29/2024 12:57 PM ONION FARMER [facility] CALCIUM 9.8 8.8 - 10.2 mg/dL 09/29/2024 12:57 PM [facility] BUN 22 8 - 23 mg/dL 09/29/2024 12:57 PM [facility] CREATININE 0.90 0.67 - 1.17 mg/dL 09/29/2024 12:57 PM [facility] GLUCOSE 251(H) 74 - 99 mg/dL 09/29/2024 12:57 PM [facility] TOTAL PROTEIN 8.1 6.6 - 8.7 g/dL 09/29/2024 12:57 PM [facility] ALBUMIN 3.4(L) 4.0 - 4.9 g/dL 09/29/2024 12:57 PM [facility] BILIRUBIN TOTAL 0.6 <=1.2 mg/dL 09/29/2024 12:57 PM [facility] ALKALINE PHOSPHATASE 67 40 - 129 U/L 09/29/2024 12:57 PM [facility] AST 20 0 - 50 U/L 09/29/2024 12:57 PM [facility] ALT 20 0 - 50 U/L 09/29/2024 12:57 PM [facility] GFR >60 >=60 mL/min/1.7 3 sq meter 09/29/2024 12:57 PM [facility] Comment:eGFR calculated with 2020 CKD-EPI equation. Vegetarian diet, extremely high or low muscle mass, and may affect results. Cystatin C with Glomerular Filtration Rate is a suitable alternative for these patients. ANION GAP 10 5 - 20 mmol/L 09/29/2024 12:57 PM [facility] Blood BLOOD SPECIMEN / Unknown Venipuncture / Unknown 09/29/2024 12:07 PM ONION FARMER 09/29/2024 12:35 PM ONION FARMER Diane Mendez MD CHEMISTRY ORDERABLES Final Re sult [facility] [id number] [address] [place] [address] * (ABNORMAL) HEMOGLOBIN A1C (08/13/2024 3:17 PM ONION FARMER) Pathologist [facility] HEMOGLOBIN A1C 9.5(H) <5.7 % of total Hgb [facility] Comment: For someone without known diabetes, a hemoglobin A1c value of 6.5% or greater indicates that they may have diabetes and this should be confirmed with a follow-up test. For someone with known diabetes, a value <7% indicates that their diabetes is well controlled and a value greater than or equal to 7% indicates suboptimal control. A1c targets should be individualized based on duration of diabetes, age, comorbid conditions, and other considerations. Currently, no consensus exists regarding use of hemoglobin A1c for diagnosis of diabetes for children. ESTIMATED AVERAGE GLUCOSE (MG/DL) 226 mg/dL [facility] ESTIMATED AVERAGE GLUCOSE (MMOL/L) 12.5 mmol/L [facility] Comment: FASTING:NO FASTING: NO Test Performed at: [facility] [address] [facility] [place] [address] Ana Porras MD Blood 08/13/2024 3:17 PM ONION FARMER 08/13/2024 3:17 PM ONION FARMER Surjit Rodriguez CHEMISTRY ORDERABLES Final Re sult [facility] [phone] [facility] [address] [facility] [place] [address] * (ABNORMAL) LIPID PANEL (08/13/2024 3:17 PM ONION FARMER) Pathologist [facility] CHOLESTEROL 152 <200 mg/dL [facility] HDL 38(L) > OR = 40 mg/dL [facility] TRIGLYCERIDE 330(H) <150 mg/dL [facility] Comment: If a non-fasting specimen was collected, consider repeat triglyceride testing on a fasting specimen if clinically indicated. Kendal et al. J. of Clin. Lipidol. 2015;9:129-169. LDL CALCULATED 74 mg/dL (calc) [facility] Comment: Reference range: <100 Desirable range <100 mg/dL for primary prevention; <70 mg/dL for patients with CHD or diabetic patients with > or = 2 CHD risk factors. LDL-C is now calculated using the Yazmin calculation, which is a validated novel method providing better accuracy than the Friedewald equation in the estimation of LDL-C. Jose David MORALES et al. MARY. 2013;310(19): 7699-4261 (http://education.Peak/faq/WBC887) CHOL/HDL RATIO 4.0 <5.0 (calc) [facility] NON-HDL CHOLESTEROL 114 <130 mg/dL (calc) [facility] Comment: For patients with diabetes plus 1 major ASCVD risk factor, treating to a non-HDL-C goal of <100 mg/dL (LDL-C of <70 mg/dL) is considered a therapeutic option. Test Performed at: [facility] [address] [place] [address] Ana Porras MD Blood 08/13/2024 3:17 PM ONION FARMER 08/13/2024 3:17 PM ONION FARMER Surjit Rodriguez DO CHEMISTRY ORDERABLES Final Re sult Performing Organization Address City/[facility]/ZIP Co de Phone Number [facility] [phone] [facility] [address] * AL COLONOSCOPY FLX DX W/COLLJ SPEC WHEN PFRMD (11/07/2023 9:24 AM CDT) us William Rodriguez MD AL - DIGESTIVE SYSTEM SERVICES Final Result Performing Organization Address City/[facility]/ZIP Co de Phone Number [facility]# [id number] [address] [place] [address] * (ABNORMAL) MICROALBUMIN/CREATININE RATIO, RANDOM UR (09/04/2023 8:22 AM ONION FARMER) Creatinine, Urine 79 20 - 320 mg/dL [facility] MICROALBUMIN, URINE 22.1 See Note: mg/dL [facility] Comment: Reference Range: Reference Range Not established MICROALBUMIN/CREAT RATIO, UR 280(H) <30 mcg/mg creat [facility] Comment: The ADA defines abnormalities in albumin excretion as follows: Albuminuria Category Result (mcg/mg creatinine) Normal to Mildly increased <30 Moderately increased 30-299 Severely increased > OR = 300 The ADA recommends that at least two of three specimens collected within a 3-6 month period be abnormal before considering a patient to be within a diagnostic category. Test Performed at: [facility] [address] [place] [address] Ana Porras MD Urine URINE SPECIMEN OBTAINED BY CLEAN CATCH PROCEDURE / Unknown 09/04/2023 8:22 AM ONION FARMER 09/05/2023 3:29 AM ONION FARMER Surjit Rodriguez DO URINE ORDERABLES Final Result [facility] [phone] [facility] [address] [place] [address] [place] [phone] * (ABNORMAL) OCCULT BLOOD IMMUNOASSAY, COLORECTAL SCREEN (08/29/2023 12:00 AM ONION FARMER) FECAL GLOBIN SEE NOTE(A) Click With Me Now [place] Comment: FECAL GLOBIN BY IMMUNOCHEMISTRY Micro Number: [id number] Test Status: Final Specimen Source: Stool Specimen Quality: Adequate Fecal Globin: Detected Test Performed at: [facility] [address] [place] [address] Ana Porras MD Stool STOOL SPECIMEN / Unknown 08/29/2023 09/10/2023 2:03 PM ONION FARMER Surjit Rodriguez DO BODY FLUIDS AND STOOLS Final Result [facility] [phone] [facility] [place] [address] * HM DIABETES FOOT EXAM (06/26/2017 12:00 AM ONION FARMER) [facility]anning HEALTH MAINTENANCE Final Result from Last 3 Months or Most Recently Relevant to Health Maintenance Insurance [address] [place] [id number] BCBS MEDICARE * Guarantor: HOSPICE N THRU Q (C) Account Type Relation to Patient Date of Phone Billing Address Corporate Other [address] [place] [address] GENERIC PAYOR Member Subscriber Plan / Payer (Ef fective 2021-Present) Name:Christian Lynch Relation to Subscriber:Self Name:Christian Lynch Payer ID:Not on file Group ID:Not on file Type:Hospice Address: [address] [place] [address] Care Teams Certified Pharmacy Tech Relationship Specialty Start Date End Date Surjit Rodriguez DO [address] [place] [address] PCP - General Family Practice 07/10/24
--- OUTSIDE RECORDS SUMMARY | 2025-03-15 15:06 | XMS_ITS | Encounter Summary ---
Author Organization [facility] Address [address] [place] [address] Care Team Providers Care Frame Repairer Name Role Phone Surjit Rodriguez DO Primary Care Provider [phone] Encounter Details Date Type Department Care Team (Latest Contact Info) Description 09/08/1999 Outpatient Historical [facility] [place] [address] [place] [address] Phu France MD [address] [place] [address] Unspecified asthma(493.90) (Primary Dx) Social History Tobacco Use Types Packs/Day Years Used Date Smoking Tobacco: Never Assessed Sex and Gender Information Value Date Recorded Sex Assigned at Not on file 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
--- OUTSIDE RECORDS SUMMARY | 2025-03-15 15:06 | XMS_ITS | Encounter Summary ---
Author Organization [facility] Address [address] [place] [address] Care Team Providers Care Central Control Room Operator Name Role Phone Surjit Rodriguez DO Primary Care Provider [phone] Reason for Visit * Reason Onset Date Comments Results 08/20/2024 Patient Communication Encounter Details Date Type Department Care Team (Late st Contact Info) Description 08/20/2024 Results Follow-Up [facility] [address] [phone] Jenifer Cerna FNP NO ADDRESS ON FILE POC INFLUENZA A/B AND COVID-19 ANTIGENS, POC URINALYSIS DIPSTICK AUTOMATED, CBC WITH DIFFERENTIAL, Additional followed-up results: 5 Social History Tobacco Use Types Packs/Day Years Used Date Smoking Tobacco: Former Cigarettes Q uit: 08/30/1982 Passive Smoke Exposure: Past Smokeless Tobacco: Never Alcohol Use Standard Drinks/Week Comments Not Currently 0 (1 standard drink = 0.6 oz pur e alcohol) Sex and Gender Information Value Date Recorded Sex Assigned at Not on file Legal Sex Male 10:58 AM WELDER PRODUCTION LINE GAS Gender Identity Not on file Sexual Orientation Not on file documented as of this encounter Miscellaneous Notes * Telephone Encounter - Ligia Barnes RN - 08/21/2024 9:33 AM CST 08/21/2024 9:33 AM Called and notified patient of results. He states he is not feeling any better. He says this has been going on for 3 weeks and his ear is hurting. He wants to know what we can do to make him feel better as the antibiotics do not seem to be helping. I let him know that his A1c was elevated as well as an elevated sugar. He states he does not eat any sugar, I let him know that certain foods like breads, pastas, rice, cereals all have sugar in themand he states he does not eat any of that. Ligia RN ER PRODUCTION LINE GAS * Telephone Encounter - Ligia Barnes RN - 08/21/2024 9:31 AM CST ----- Message from Jenifer Cerna sent at 08/20/2024 8:10 AM WELDER PRODUCTION LINE GAS ----- Your CBC returned and your platelets are low. This can be due to an infection. Your urine culture was negative for bacterial growth. Your troponin was negative for cardiac concerns. Your magnesium and tsh is within normal range. Your CMP shows an elevated blood sugar. Make sure we are having a healthy diet and taking our medications as directed. Your sodium is also on the lower end. Along with a elevated liver enzymes. I would like to recheck this lab in one week. Your chest xray was also negative. How are you since starting your antibiotic? ER PRODUCTION LINE GAS * Telephone Encounter - Malissa Martínez - 08/21/2024 9:12 AM CST Copied from [facility] #[id number]. Topic: CPA Information Request >> Aug 21, 2024 9:10 AM Malissa Shen wrote: Caller is returning phone call from clinic. Caller Name: Alejandra( on PHI) Patient/Caregiver Callback Number: [phone] Clinic Left Note In Chart, husbands phone is not working and would like a call back Is there a note from the clinic requesting the caller be transferred when they call back? No Are the credentials of the caregiver who called the patient automation tech? Yes Call Notes: Communicated information that is documented in the note. Patient wants call back ER PRODUCTION LINE GAS * Telephone Encounter - Roxanna Reeves LPN - 08/21/2024 8:57 AM CST 08/21/2024 8:57 AM No answer. Left voice mail/message that patient/caregiver can return our call. If patient/caregivercalls back, contact center please inform caller to expect a return call from the clinic. Roxanna MADRIGAL ER PRODUCTION LINE GAS * Telephone Encounter - Roxanna Reeves LPN - 08/20/2024 8:35 AM CST 08/20/2024 8:35 AM No answer. Left voice mail/message that patient/caregiver can return our call. If patient/caregivercalls back, contact center please inform caller to expect a return call from the clinic. Roxanna MADRIGAL ER PRODUCTION LINE GAS * Result Encounter Note - Jenifer Cerna FNP - 08/20/2024 8:10 AM WELDER PRODUCTION LINE GAS Your CBC returned and your platelets are low. This can be due to an infection. Your urine culture was negative for bacterial growth. Your troponin was negative for cardiac concerns. Your magnesium and tsh is within normal range. Your CMP shows an elevated blood sugar. Make sure we are having a healthy diet and taking our medications as directed. Your sodium is also on the lower end. Along with a elevated liver enzymes. I would like to recheck this lab in one week. Your chest xray was also negative. How are you since starting your antibiotic? ER PRODUCTION LINE GAS documented in this encounter Plan of Treatment Upcoming Encounters Date Type Department Care Team (Late st Contact Info) Description 04/10/2025 9:00 AM CDT Office Visit [facility] [address] [place] [phone] Surjit Rodriguez DO [address] [place] [phone] 04/16/2025 9:10 AM CDT Office Visit [facility] [place] [address] [facility] [address] [place] [address] MD [address] [place] [address] documented as of this encounter Visit Diagnoses Diagnosis Low platelet count- Primary Elevated liver enzymes Nonspecific elevation of levels of transaminase or lactic acid dehydrogenase (LDH) Hyponatremia Hyposmolality and/or hyponatremia documented in this encounter Care Teams Central Control Room Operator Relationship Specialty Start Date End Date Surjit Rodriguez DO [address] [place] [phone] PCP - General Family Practice 07/10/24 documented as of this encounter
--- OUTSIDE RECORDS SUMMARY | 2025-03-15 15:06 | XMS_ITS | Encounter Summary ---
Author Organization [facility] Address [address] [place] [address] Care Team Providers Care Cloth Spreader Screen Printing Name Role Phone Surjit Rodriguez DO Primary Care Provider [phone] Encounter Details Date Type Department Care Team (Latest Contact Info) Description 09/29/2003 Outpatient [facility] [place] [address] [place] [address] Phu France MD [address] [place] [address] ASTHMA UNSPECIFIED (Primary Dx) Social History Tobacco Use Types Packs/Day Years Used Date Smoking Tobacco: Never Assessed Sex and Gender Information Value Date Recorded Sex Assigned at Not on file 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
--- OUTSIDE RECORDS SUMMARY | 2025-03-15 15:06 | XMS_ITS | Encounter Summary ---
Author Organization [facility] Address [address] [place] [address] Care Team Providers Care Desk Interviewer Name Role Phone Surjit Rodriguez DO Primary Care Provider [phone] Encounter Details Date Type Department Care Team (Latest Contact Info) Description 09/24/2001 Outpatient Historical [facility] [place] [address] [place] [address] Phu France MD [address] [place] [address] UNS ASTHMA WOSTATUS ASTHMATICUS (Primary Dx) Social History Tobacco Use Types Packs/Day Years Used Date Smoking Tobacco: Never Assessed Sex and Gender Information Value Date Recorded Sex Assigned at Not on file 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
--- OUTSIDE RECORDS SUMMARY | 2025-03-15 15:07 | XMS_ITS | Clinical Summary ---
Author Organization [facility] Address [address] [place] [address] Care Team Providers Care Skeiner Name Role Phone Surjit Rodriguez Primary Care Provider [phone] Allergies No known active allergies Medications potassium chloride (MICRO-K EXTENCAPS) 10 mEq Extended Release capsule Take 2 Capsules (20 mEq) by mouth daily. 180 Capsule 3 0 Active ipratropium-albut Abdias (DUONEB) 0.5 mg-3 mg(2.5 mg base)/3 mL Solution for NebulizationIndic ations:Asthma, unspecified asthma severity, unspecified whether complicated, unspecified whether persistent Take 3 mL by inhalation every 6 hours as needed for Shortness of Breath. 150 mL 4 0 Active albuterol HFA 90 mcg inhalerIndication s:Moderate asthma without complication, unspecified whether persistent 2 PUFF(S) EVERY 4 HOURS NEEDED FOR SHORTNESS OF BREATH/WHEEZIN G 18 Gram 5 1 Active glimepiride (AMARYL) 4 mg tabletIndications :Uncontrolled type 2 diabetes mellitus with hyperglycemia, without long-term current use of insulin ([facility]) Take 2 Tablets (8 mg) by mouth daily in the morning. For diabetes 180 Tablet 3 1 Active spironolactone (ALDACTONE) 25 mg tablet Take 1 Tablet (25 mg) by mouth daily. 90 Tablet 3 1 Active furosemide (LASIX) 40 mg tablet Take 1 Tablet (40 mg) by mouth 1 time daily as needed for Other (See Comment) (Swelling). 30 Tablet 5 1 Active metoprolol succinate (TOPROL XL) 100 mg Extended Release 24 hour tablet Take 1 Tablet (100 mg) by mouth daily. Does not appear to be taking consistently. 90 Tablet 3 1 Active lisinopriL (PRINIVIL) 40 mg tabletIndications :Essential hypertension TAKE ONE TABLET BY MOUTH DAILY FOR BLOOD PRESSURE CONTROL 90 Tablet 3 1 Active fluticasone propionate (FLONASE) 50 mcg/spray Alpha, Suspension nasal inhaler Administer 2 Sprays in each nostril daily. 16 Gram 11 1 Active fluticasone propion-salmetero L (ADVAIR HFA) 230-21 mcg/actuation HFA Aerosol Inhaler Take 2 Puffs by inhalation every 12 hours. 12 Gram 3 1 Active inhalational spacing device Spacer For use with inhaler 1 Each 1 Active tamsulosin (FLOMAX) 0.4 mg capsule Take 1 Capsule (0.4 mg) by mouth daily. 15 Capsule 1 Active docosahexaenoic acid/epa (FISH OIL ORAL) Take by mouth. Activ e umeclidinium (INCRUSE ELLIPTA) 62.5 mcg/actuation Disk with Device Take 1 Puff by inhalation daily. 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 Chacho young 05/15/2018 Nonexudative age-related mac ular degeneration, bilateral, early dry stage 05/15/2018 Severe obesity (BMI 35.0-39. 9) with comorbidity of htn and dm. 07/06/2017 Difficulty urinating 07/06/2017 Sleep disturbance 07/06/2017 Family history of early CAD 10/31/2016 SOB (shortness of breath) 10/31/2016 Essential hypertension 04/15/2015 Asthma 10/27/2013 Type 2 diabetes mellitus with hyperglycemia 07/2010 Hyperlipidemia Other emphysema Resolved Problems Problem Noted Date Diagnosed Date Resolved Date Vitreous hemorrhage, right, s/p PPV 05/16/2018 05/15/2018 03/30/2020 Immunizations Immunization Administration Dates Next Due (PNEUMOVAX 23)(50 YRS UP) PN EUMOCOCCAL POLYSACCHARIDE (PPV23) 0.5 ML, IM 07/04/2017 INFLUENZA VACCINE QUADRIVALENT 3 YR UP PF IM 02/2018 Influenza Vaccine Quad Split 3+ Yrs Im 7 Family History Medical History Relation Name Comments Detachment/Tears Brother Amblyopia Neg Hx Blindness Neg Hx Cancer Neg Hx Cataract Neg Hx Corneal Dystrophies Neg Hx Diabetes Neg Hx Fuchs' dystrophy Neg Hx Glaucoma Neg Hx Hypertension Neg Hx Keratoconus Neg Hx Macular Degen Neg Hx Strabismus Neg Hx Stroke Neg Hx Thyroid Disease Neg Hx Relation Name Status Comments Brother Social History Tobacco Use Types Packs/Day Years Used Date Smoking Tobacco: Former Cigarettes 0.5 10 0 08/30/1972 - 08/30/1982 Smokeless Tobacco: Never Tobacco Cessation:Counseling Given: No Alcohol Use Standard Drinks/Week Comments No 0 (1 standard drink = 0.6 oz pur e alcohol) Sex and Gender Information Value Date Recorded Sex Assigned at Not on file 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 Gender Identity Not on file Sexual Orientation Not on file Last Filed Vital Signs Vital Sign Reading Time Taken Comments Blood Pressure 150/80 12/23/2020 9:54 AM CDT Pulse 80 12/23/2020 9:54 AM CDT Temperature 36.7 C (98 F) 12/23/2020 9:54 AM CDT Respiratory Rate 20 12/23/2020 9:54 AM CDT Oxygen Saturation 94% 12/23/2020 9:54 AM CDT Inhaled Oxygen Concentration - - Weight 124.4 kg (274 lb 3.2 oz) 12/23/2020 9:54 AM CDT Height 180.3 cm (5' 11 ) 12/23/2020 9:54 AM CDT Body Mass Index 38.24 12/23/2020 9:54 AM CDT Plan of Treatment Health Maintenance Due Date Last Done Comments FIT/ DNA Q 3 YEARS (AUTO ORDER) 1975 FLEX SIG/CT COLONOGRAPHY Q 5 YEARS (AUTO ORDER) 1975 DTAP/TDAP/TD VACCINES (1 - Tdap) 1976 Traditional Medicare (ACO) A nnual Wellness Visit 1976 FIT-DNA Q 3 years 2002 FIT/FOBT Q 1 year 2002 Flex Sig/CT Colonography Q 5 years 2002 ZOSTER VACCINE (1 of 2) 2007 RSV VACCINE (60+ or ) (1 - Risk 60-74 years 1-dose series) 2017 DIABETES ANNUAL FOOT EXAM 06/26/2018 06/26/2017, PNEUMOCOCCAL VACCINE 50+ YEA RS (2 of 2 - PCV) 07/04/2018 07/04/2017 DIABETES MICROALBUMIN ANNUAL SCREEN 05/31/2019 05/31/2018, 04/13/2016, 04/15/2015, Additional history exists DIABETES HBA1C Q 6 MONTHS 04/09/20212020, 03/30/2020, 09/17/2019, Additional history exists LDL CHOLESTEROL ANNUAL 10/07/2021 , 06/16/2020, 05/30/2018, Additional history exists Medicare Advantage ([place]) Preventative Visit/Annual Wellness Visit 07/30/2024 07/10/2024, 04/05/2023, 09/17/2019 FIT/FOBT Q 1 YEAR (AUTO ORDER) 08/29/2024 08/29/2023 INFLUENZA VACCINE (#1) 2025 06/06/2018, 2016 DIABETES ANNUAL RETINAL EXAM 01/27/202607/2024, 04/16/2024, 12/06/2023, Additional history exists COLORECTAL CANCER SCREENING (AUTO ORDER) 11/06/2033 11/07/2023 COLORECTAL SCREENING 11/06/2033 11/07/2023 Colorectal Cancer Screening (AUTO ORDER) 11/06/2033 Colorectal Cancer Screening 11/06/2033 Medical Devices Implanted Type Area Optical Lens Manufacturing Tech Device Identifier Shelf Expiration Date Model / Serial / Lot Lens Io Tecnis 1pc 17.0 [id number] - [id number] Implanted:Qty: 1 on 02/11/2019 by Kwadwo Pedraza MD at [facility] Right: Eye [employer] 12/06/2022 [id number] / [id number] / Ring Tension Capsular Type 14c [id number] - [id number] Implanted:Qty: 1 on 02/11/2019 by Kwadwo Pedraza MD at [facility] Right: Eye [employer] 07/19/2023 [id number] / [id number] / [id number] Lens Io Tecnis 1pc 16.5 [id number] - [id number] Implanted:Qty: 1 on 02/25/2019 by Kwadwo Pedraza MD at [facility] Left: Eye [employer] 12/18/2020 [id number] / [id number] / Procedures Procedure Name Priority Date/Time Associated Diagnosis Comments LIPID PANEL Routine 10/07/2020 9:10 AM SEPARATOR OPERATOR Essential hypertension Uncontrolled type 2 diabetes mellitus with hyperglycemia, without long-term current use of insulin ([facility]/HCC) HEMOGLOBIN A1C Routine 10/07/2020 9:10 AM SEPARATOR OPERATOR Essential hypertension Uncontrolled type 2 diabetes mellitus with hyperglycemia, without long-term current use of insulin (CMS/HCC) DIABETES EYE EXAM Routine 02/11/2020 MICROALBUMIN/CREATI NINE RATIO, RANDOM UR Routine 05/31/2018 8:17 AM CDT Uncontrolled type 2 diabetes mellitus with hyperglycemia (CMS/HCC) DIABETES FOOT EXAM Routine 06/26/2017 from Last 3 Months or Most Recently Relevant to Health Maintenance Results * (ABNORMAL) HEMOGLOBIN A1C (10/07/2020 9:10 AM SEPARATOR OPERATOR) HEMOGLOBIN A1C 8.2(H) See Comment % 10/07/2020 8:40 PM SEPARATOR OPERATOR [facility] EST. AVG GLUCOSE, A1C 189 mg/dL 10/07/2020 8:40 PM [facility] Blood Venipuncture / Unknown 10/07/2020 9:10 AM SEPARATOR OPERATOR 10/07/2020 8:19 PM SEPARATOR OPERATOR [facility] - 10/07/2020 8:40 PM SEPARATOR OPERATOR HGB A1C INTERPRETATION NORMAL: <5.7% PRE-DIABETES: 5.7 - 6.4% DIABETES: 6.5% OR GREATER Falsely low A1C measurements can occur when: 1. Anemia and/or hemolytic anemia is present. 2. Hemoglobin variants present. 3. Renal failure. 4. Transfusion of blood product in the last 120 days. We recommend ordering a fructosamine test([id number]) to more accurately assess glycemic status if any of the above conditions are present. us Surjit Rodriguez DO CHEMISTRY ORDERABLES Final Re sult [facility] CLIA# [id number] [address] [place] [address] * (ABNORMAL) LIPID PANEL (10/07/2020 9:10 AM SEPARATOR OPERATOR) CHOLESTEROL 194 <200 mg/dL 10/07/2020 9:24 PM [facility] TRIGLYCERIDE 183(H) <150 mg/dL 10/07/2020 9:24 PM [facility] HDL 37(L) 40 - 59 mg/dL 10/07/2020 9:24 PM [facility] LDL CALCULATED 120(H) <100 mg/dL 10/07/2020 9:24 PM [facility] NON-HDL CHOLESTEROL 157(H) <130 mg/dL 10/07/2020 9:24 PM [facility] Blood Venipuncture / Unknown 10/07/2020 9:10 AM SEPARATOR OPERATOR 10/07/2020 8:18 PM SEPARATOR OPERATOR [facility] - 10/07/2020 9:24 PM SEPARATOR OPERATOR TOTAL CHOLESTEROL mg/dL Desirable <200 Borderline high 200-239 High >=240 TRIGLYCERIDES mg/dL Normal <150 Borderline high 150-199 High 200-499 Very high >=500 HDL CHOLESTEROL mg/dL Low <40 Normal 40-59 Desirable >=60 NON HDL CHOLESTEROL mg/dL Optimal <130 Near Optimal 130-159 Borderline High 160-189 Very High >=190 CALCULATED LDL mg/dL LDL <70, OPTIMAL if have Atherosclerotic cardiovascular disease (ASCVD) or intermediate or higher (>7.5%) 10 year risk of ASCVD including most adults with diabetes. LDL <100, Optimal in adult patients with low (<7.5%) 10 year ASCVD risk LDL 100-160, Suboptimal LDL >160, High LDL >190, Very high ATPIII Guidelines Reference Ranges for Lipid Panels (NCEP/AMA) . Surjit Rodriguez DO CHEMISTRY ORDERABLES Final Re sult [facility] CLIA# [id number] [address] [place] [address] * DIABETES EYE EXAM (02/11/2020) Abstract Spg Provider HEALTH MAINTENANCE Final R esult * (ABNORMAL) MICROALBUMIN/CREATININE RATIO, RANDOM UR (05/31/2018 8:17 AM CDT) MICROALBUMIN, URINE 44.8 No Reference Range mg/dL 05/31/2018 9:44 PM T [facility] CREATININE, URINE 152.6 40.0 - 278.0 mg/dL 05/31/2018 9:44 PM T [facility] Comment: Reference Range varies with fluid intake and diet. MICROALBUMIN/ CREAT RATIO, UR 293.6(H) <17.0 mg/g 05/31/2018 9:44 PM T [facility] Urine URINE SPECIMEN OBTAINED BY CLEAN CATCH PROCEDURE / Unknown Collection / Unknown 05/31/2018 8:17 AM CDT 05/31/2018 8:28 PM CDT Narrative [facility] - 05/31/2018 9:44 PM CDT Condition Microalbumin/Creat ratio Normal Males <17 Normal Females <25 Microalbuminuria Males 17-299 Microalbuminuria Females 25-299 Overt proteinuria >=300 Susannah Fernando NP URINE ORDERABLES Final Resul t [facility] CLIA# [id number] [address] [place] [address] * DIABETES FOOT EXAM (06/26/2017) us Abstract Spg Provider HEALTH MAINTENANCE Final R esult from Last 3 Months or Most Recently Relevant to Health Maintenance Insurance [facility] DUAL COMPLETE PREVENTION OF BLINDNESS GENERIC PAYOR MEDICARE PART A AND B Advance Directives For more information, please contact: [phone] * Full Code (Latest Code Status on File) Date Activated Date Inactivated Comments 02/25/2019 6:48 AM 02/25/2019 11:02 AM * Full Code Date Activated Date Inactivated Comments 02/11/2019 6:45 AM 02/11/2019 10:15 AM * Full Code Date Activated Date Inactivated Comments 05/16/2018 1:18 PM 05/16/2018 7:49 PM Care Teams Skeiner Relationship Specialty Start Date End Date Surjit Rodriguez DO [address] [place] [phone] PCP - General Family Practice 10/07/20
[2025-03-15 15:13] VITALS: BP 176/72; PULSE 67; RESP 22; TEMP 36.6; O2SAT 90
--- NOTE | 2025-03-15 15:28 | USR_ITS ---
PROCEDURE INFORMATION: Exam: US Duplex Left Lower Extremity Veins, Limited Exam date and time: 03/15/2025 5:56 PM Age: 69 years old Clinical indication: Edema, localized; Lower extremity, left; Additional info: Leg swelling TECHNIQUE: Imaging protocol: Real-time duplex ultrasound of the left extremity with 2-D larsen scale, color Doppler flow and spectral waveform analysis including responses to compression and other maneuvers (when performed) with image documentation. Limited exam focused on the left lower extremity veins. COMPARISON: No relevant prior studies available. FINDINGS: Left deep veins: Unremarkable. The common femoral, femoral, proximal profunda femoral and popliteal veins are patent without thrombus. Normal Doppler waveforms. Normal compressibility and/or augmentation response. Superficial veins: Greater saphenous vein at the saphenofemoral junction is patent without thrombus. Soft tissues: Unremarkable. US/CV venous duplex [facility] [id number] IMPRESSION: No evidence of DVT in the left lower extremity.
--- NOTE | 2025-03-15 15:28 | XRR_ITS ---
PROCEDURE INFORMATION: Exam: XR Chest Exam date and time: 03/15/2025 3:27 PM Age: 69 years old Clinical indication: Shortness of breath; Additional info: Chf; SOB TECHNIQUE: Imaging protocol: Radiologic exam of the chest. Views: 1 view. COMPARISON: CR XR chest 1V portable [id number] 06/06/2023 1:17 PM FINDINGS: Lungs: Patchy ground-glass airspace opacity and interstitial prominence of the right and left lower lung which may correspond to overlapping densities or underlying interstitial lung change. No focal dense airspace consolidation suspicious for a pneumonia. No CHF. Lung volumes are upper limits for normal. Pleural spaces: Minimal blunting of the left costophrenic angle compatible with small left pleural effusion or overlapping densities. There is no large pleural effusion. No pneumothorax. Heart/Mediastinum: Mild cardiomegaly. The mediastinal contours are smooth. Bones/joints: Multilevel degenerative changes are present throughout the spine. Mild scoliosis. Old healed rib fracture deformities are redemonstrated on the right. XR/XR chest 1V portable [id number] IMPRESSION: 1. Minimal patchy ground-glass airspace opacity and interstitial prominence within the right and left lower lung which more likely corresponds to overlapping densities or mild underlying interstitial lung change. No airspace consolidation suspicious for pneumonia. 2. Probable small left pleural effusion. 3. Cardiomegaly. No CHF. No pneumothorax.
--- NOTE | 2025-03-15 15:28 | W.ED.EXTPRO ---
HPI - Extremity Problem General: Chief complaint: Extremity Injury, Lower Stated complaint: lt leg swollen Time Seen by Provider: 03/15/25 15:03 Source: patient Mode of arrival: ambulatory Limitations: no limitations History of Present Illness: 69-year-old male who has a history of CHF states that he always has leg swelling states that his left leg has been more swollen today causing some concern. He denies any rash denies any pain denies any fevers. He denies any worsening providers. Associated symptoms: Deny chest pain, fever(s) or rash Related Data Home Medications ?Medication ?Instructions ?Recorded ?Confirmed albuterol sulfate 90 mcg/actuation 2 puff inhalation Q4H PRN 10/14/19 02/10/25 aerosol inhaler (Ventolin HFA) Shortness Of Breath tamsulosin 0.4 mg capsule 0.4 mg PO DAILY 08/12/20 02/10/25 fluticasone fur. 200 mcg-umeclid 1 inh inhalation DAILY 04/16/22 02/10/25 62.5 mcg-vilant 25 mcg inhalat.powder (Trelegy Ellipta) furosemide 40 mg tablet 40 mg PO BID 04/16/22 02/10/25 glimepiride 4 mg tablet 4 mg PO DAILY 04/16/22 02/10/25 metoprolol succinate 100 mg 100 mg PO DAILY 04/16/22 02/10/25 tablet,extended release 24 hr spironolactone 25 mg tablet 25 mg PO DAILY 04/16/22 02/10/25 empagliflozin 10 mg tablet 10 mg PO QAM 09/27/23 02/10/25 (Jardiance) lisinopril 40 mg tablet 40 mg PO DAILY 11/05/23 02/10/25 Previous Rx's ?Medication ?Instructions ?Recorded amlodipine 10 mg tablet 10 mg PO DAILY #30 tabs 11/28/19 albuterol sulfate 2.5 mg/3 mL 2.5 mg (3 mL) inhalation Q6H #75 mL 05/16/20 (0.083 %) solution for nebulization nebulizers (AeroEclipse II #1 ea 05/16/20 Nebulizer) ipratropium 0.5 mg-albuterol 3 mg 3 ml inhalation QID PRN wheezing 12/13/20 (2.5 mg base)/3 mL nebulization #360 mL soln potassium chloride 20 mEq 20 meq PO DAILY #30 tabs 12/20/21 tablet,extended release aspirin 81 mg tablet,delayed 81 mg PO DAILY #30 tabs 04/17/22 release atorvastatin 40 mg tablet 40 mg PO DAILY #60 tabs 04/17/22 clopidogrel 75 mg tablet (Plavix) 75 mg PO DAILY #20 tabs 04/17/22 Held on 11/07/23. Instructions: Resume on 11/09/23. ipratropium 0.5 mg-albuterol 3 mg 3 ml inhalation Q4H PRN shortness 05/25/23 (2.5 mg base)/3 mL nebulization of breath or wheezing #90 mL soln levofloxacin 750 mg tablet 750 mg PO DAILY 6 days #6 tabs 02/11/24 blood-glucose sensor (Dexcom G7 #9 ea 02/10/25 Sensor device) blood-glucose,patient service coordinator,cont #1 ea 02/10/25 (Dexcom G7 Mechanical Manufacturing Technician) insulin aspart U-100 100 unit/mL 15 unit (0.15 mL) SUBCUT TID #15 mL 02/10/25 (3 mL) subcutaneous pen (Novolog FlexPen U-100 Insulin aspart) insulin glargine 100 unit/mL (3 26 unit (0.26 mL) SUBCUT DAILY #15 02/10/25 mL) subcutaneous pen (Lantus mL Solostar U-100 Insulin) Allergies Allergy/AdvReac Type Severity Reaction Status Date / Time No Known Allergies Allergy Verified 02/11/24 10:52 Review of Systems Const: Denies: fever(s), chills, body aches or change in appetite ENMT: Denies: throat pain or dental pain Card: Denies: chest pain Resp: Denies: dyspnea GI: Denies: abdominal pain, nausea, vomiting or diarrhea Musc: Reports: extremity swelling; Denies: neck pain or back pain Skin/Breast: Denies: rash Neuro: Denies: headache(s) PFS ED PFSH: Medical History Hyperlipemia, mixed Family history of colon cancer Acute bronchitis Ataxia Acute CVA (cerebrovascular accident) Osteoarthritis of hands, bilateral Mitral regurgitation Pulmonary hypertension Obstructive sleep apnea Diabetes mellitus Hypertension Surgical History History of umbilical hernia repair 05/18/22 History of eye surgery Family History Mother Hypertension Social History Smoking and tobacco/nicotine status: unknown if used tobacco/nicotine Alcohol intake: never Substance/Drug Use: never Lives independently: Yes Household members: spouse Marital status: Current occupational status: retired Do you think of yourself as: Straight/Heterosexual Current gender identity: Male Physical Exam Const: COMMON NORMALS: no acute distress, patient oriented x3 and healthy appearing HENMT: COMMON NORMALS: normocephalic and atraumatic HEAD & SCALP: normocephalic and atraumatic Neck/C-Spine: COMMON NORMALS: full ROM and supple Chest: COMMONS NORMALS: normal inspection of the chest Resp: COMMON NORMALS: normal respiratory effort, No retractions, No use of accessory muscles and clear to auscultation bilaterally AUSCULTATION: clear to auscultation bilaterally Cardio: COMMON NORMALS: regular rate, regular rhythm and No murmurs present (Cardio) RATE: regular rate RHYTHM: regular rhythm Extremity: COMMON NORMALS: full ROM NARRATIVE EXTREMITY EXAM: Bilateral lower extreme edema slightly more swelling to the left leg no redness no tenderness distal pulses intact Neuro: COMMON NORMALS: patient oriented x3, moves all extremities and no focal motor deficits Psych: COMMON NORMALS: mental status grossly normal, Normal thought process present and cooperative THOUGHT PROCESS: Normal thought process present Skin: COMMON NORMALS: no rashes or lesions noted and no wounds GENERAL SKIN EXAM: no rashes or lesions noted Course Vital Signs: Vital signs: Vital Signs Temperature 97.9 F 03/15/25 15:13 Pulse Rate 68 03/15/25 17:00 Respiratory Rate 22 H 03/15/25 15:13 Blood Pressure 141/66 03/15/25 17:00 Pulse Oximetry 93 03/15/25 18:00 Oxygen Delivery Me thod Nasal Cannula 03/15/25 18:00 Oxygen Flow Rate 3 03/15/25 18:00 MDM - Extremity (Nontraumatic) Medical Decision Making Patient presents here for extreme edema likely from his CHF he has no signs of DVT blood work here is normal did give him a dose of Lasix he is to follow-up with PCP return if worsening he understands agrees to plan. Medical Records I reviewed the patient's medical records. Lab Data I reviewed the patient's lab results. 03/15/25 15:39 03/15/25 15:39 Radiology Impressions Chest X-Ray 03/15/25 15:28 IMPRESSION: 1. Minimal patchy ground-glass airspace opacity and interstitial prominence within the right and left lower lung which more likely corresponds to overlapping densities or mild underlying interstitial lung change. No airspace consolidation suspicious for pneumonia. 2. Probable small left pleural effusion. 3. Cardiomegaly. No CHF. No pneumothorax. Laboratory Results WBC 7.03 10^3/uL (3.29-11.43) 03/15/25 15:39 RBC 5.63 10^6/uL (3.85-5.65) 03/15/25 15:39 Hgb 16.50 g/dL (11.27-16.99) 03/15/25 15:39 Hct 50.8 % (37-53) 03/15/25 15:39 MCV 90.2 fl (82-101) 03/15/25 15:39 MCH 29.3 pg (27-33) 03/15/25 15:39 MCHC 32.5 g/dL (30-55) 03/15/25 15:39 RDW 13.4 % (12.1-15.1) 03/15/25 15:39 Plt Count 171 10^3/cmm (157-399) 03/15/25 15:39 MPV 11.5 fL (7.4-10.4) H 03/15/25 15:39 Neut % (Auto) 56.2 % 03/15/25 15:39 Lymph % (Auto) 12.1 % 03/15/25 15:39 Beckham % (Auto) 8.8 % 03/15/25 15:39 Eos % (Auto) 21.2 % 03/15/25 15:39 Baso % (Auto) 1.4 % 03/15/25 15:39 Neut # (Auto) 3.95 10^3/uL (1.8-7.7) 03/15/25 15:39 Lymph # (Auto) 0.9 10^3/uL (0.8-4.8) 03/15/25 15:39 Beckham # (Auto) 0.6 10^3/uL (0.2-0.9) 03/15/25 15:39 Eos # (Auto) 1.5 10^3/uL (0.0-0.8) H 03/15/25 15:39 Baso # (Auto) 0.1 10^3/uL (0.0-0.1) 03/15/25 15:39 Nucleated RBC % (auto) 0 % 03/15/25 15:39 Nucleated RBCs # 0.0 /100WBC 03/15/25 15:39 Sodium 139 mmol/L (136-145) 03/15/25 15:39 Potassium 4.0 mmol/L (3.5-5.1) 03/15/25 15:39 Chloride 101 mmol/L (98-107) 03/15/25 15:39 Carbon Dioxide 28 mmol/L (22-29) 03/15/25 15:39 Anion Gap 14.0 (5-19) 03/15/25 15:39 BUN 28 mg/dL (8-23) H 03/15/25 15:39 Creatinine 1.1 mg/dL (0.7-1.2) 03/15/25 15:39 GFR Calculation 66.8 mL/min (90-130) L 03/15/25 15:39 Glucose 231 mg/dL (65-115) H 03/15/25 15:39 POC Glucose 215 mg/dL (70-110) H 03/15/25 15:35 Calculated Osmolality 301 mOsm/kg (285-295) H 03/15/25 15:39 Calcium 9.5 mg/dL (8.5-10.5) 03/15/25 15:39 Total Bilirubin 0.7 mg/dL (0.15-1.2) 03/15/25 15:39 AST 16 U/L (0-40) 03/15/25 15:39 ALT 19 U/L (0-41) 03/15/25 15:39 Alkaline Phosphatase 62 U/L (40-130) 03/15/25 15:39 NT-Pro-B Natriuret Pep 156 pg/mL (0-125) H 03/15/25 15:39 Total Protein 7.9 g/dL (6.6-8.7) 03/15/25 15:39 Albumin 4.2 g/dL (3.5-5.2) 03/15/25 15:39 Globulin 3.7 g/dL (1.3-4.6) 03/15/25 15:39 All radiology interpretation(s) finalized by discharge Discharge Plan Discharge Patient Disposition: Home Clinical Impression: Edema of lower extremity Condition: Stable Prescriptions: No Action ipratropium-albuterol 0.5 mg-3 mg(2.5 mg base)/3 mL solution for nebulization 3 ml inhalation QID PRN (Reason: wheezing) Qty: 360 3RF albuterol sulfate 2.5 mg /3 mL (0.083 %) solution for nebulization 2.5 mg INHALATION Q6H Qty: 75 0RF (DME) AeroEclipse II Nebulizer Mis See Rx Instructions .ROUTE .MEDSUPPLY Qty: 1 0RF Rx Instructions: As directed tamsulosin 0.4 mg capsule 0.4 mg PO DAILY levofloxacin 750 mg tablet 750 mg PO DAILY 6 Days Qty: 6 0RF Jardiance 10 mg tablet 10 mg PO QAM insulin aspart U-100 [Novolog FlexPen U-100 Insulin] 100 unit/mL (3 mL) insulin pen 15 unit SUBCUT TID Qty: 15 1RF insulin glargine [Lantus Solostar U-100 Insulin] 100 unit/mL (3 mL) insulin pen 26 unit SUBCUT DAILY Qty: 15 1RF (DME) Dexcom G7 Sensor Device See Rx Instructions .ROUTE .MEDSUPPLY Qty: 9 2RF Rx Instructions: change every 10 days (DME) Dexcom G7 Mechanical Manufacturing Technician Misc See Rx Instructions .ROUTE .MEDSUPPLY Qty: 1 0RF Rx Instructions: As directed amlodipine 10 mg tablet 10 mg PO DAILY Qty: 30 0RF potassium chloride 20 mEq tablet extended release 20 meq PO DAILY Qty: 30 0RF Rx Instructions: Need follow-up for further refills albuterol sulfate [Ventolin HFA] 90 mcg/actuation Hfa Aerosol Inhaler 2 puff INHALATION Q4H PRN (Reason: Shortness Of Breath) furosemide 40 mg tablet 40 mg PO BID metoprolol succinate 100 mg Tablet Extended Release 24 Hr 100 mg PO DAILY spironolactone 25 mg Tablet 25 mg PO DAILY glimepiride 4 mg tablet 4 mg PO DAILY Trelegy Ellipta 200-62.5-25 mcg blister with device 1 inh INHALATION DAILY aspirin 81 mg tablet,delayed release (DR/EC) 81 mg PO DAILY Qty: 30 0RF clopidogrel [Plavix] 75 mg tablet 75 mg PO DAILY Qty: 20 0RF atorvastatin 40 mg tablet 40 mg PO DAILY Qty: 60 0RF ipratropium-albuterol 0.5 mg-3 mg(2.5 mg base)/3 mL solution for nebulization 3 ml inhalation Q4H PRN (Reason: shortness of breath or wheezing) Qty: 90 0RF lisinopril 40 mg tablet 40 mg PO DAILY Discharge Orders: Discharge ED (Routine); Ordered 03/15/25 Ordered By: Robbin Bhakta Referrals: William Rodriguez [Primary Care Provider, Family Practice] Discharge Diet: Advance as tolerated Discharge Activity: Resume usual activity Patient Instructions: Leg Edema (ED) Print Language: Khmer Coding Level of Care Code ED Director [facility]
[2025-03-15] MEDS: FUROsemide 10 mg/mL SDV 10mL 80 MG IVP (15:38)
[2025-03-15 15:47] LABS: Hematocrit 50.8 % (37-53); Hemoglobin 16.50 g/dL (11.27-16.99); Mean Corpuscular HGB Conc 32.5 g/dL (30-55); Mean Corpuscular Hemoglobin 29.3 pg (27-33); Mean Corpuscular Volume 90.2 fl (82-101); Nucleated Red Blood Cells % 0 %; Platelet Count 171 10^3/cmm (157-399); Red Blood Count 5.63 10^6/uL (3.85-5.65); White Blood Count 7.03 10^3/uL (3.29-11.43)
[2025-03-15 16:18] LABS: Alanine Aminotransferase 19 U/L (0-41); Albumin Level 4.2 g/dL (3.5-5.2); Alkaline Phosphatase 62 U/L (40-130); Anion Gap 14.0 (5-19); Aspartate Amino Transferase 16 U/L (0-40); Blood Urea Nitrogen 28 mg/dL (8-23); Calcium 9.5 mg/dL (8.5-10.5); Carbon Dioxide 28 mmol/L (22-29); Chloride 101 mmol/L (98-107); Creatinine Clr Calc Pharmacy 85.1239; Globulin 3.7 g/dL (1.3-4.6); Glucose 231 mg/dL (65-115); NT Pro B Type Natriuretic Pept 156 pg/mL (0-125); Osmolality Calculated 301 mOsm/kg (285-295); Potassium 4.0 mmol/L (3.5-5.1); Sodium 139 mmol/L (136-145); Total Protein 7.9 g/dL (6.6-8.7)
[2025-03-15 17:00] VITALS: BP 141/66; PULSE 68; O2SAT 90
[2025-03-15 18:00] VITALS: O2SAT 93
[2025-03-15 18:18] VITALS: BP 162/91
== END 2025-03-15 18:19 | disposition home or self-care (01) ==
PROVIDERS: Emergency Provider Emergency Medicine; PCP Family Medicine
DX: R60.0 Localized edema (principal); Z79.4 Long term (current) use of insulin; Z79.02 Long term (current) use of antithrombotics/antiplatelets; Z79.82 Long term (current) use of aspirin; E11.9 Type 2 diabetes mellitus without complications; E78.2 Mixed hyperlipidemia; Z86.73 Personal history of transient ischemic attack (TIA), and cerebral infarction without residual deficits; I11.0 Hypertensive heart disease with heart failure; I50.9 Heart failure, unspecified
CPT/HCPCS: 36415; 36416; 71045; 80053; 82962; 83880; 85025; 93971; 96374; 99284; J1938

== ENCOUNTER → 2025-04-01 12:24 | Outpatient (BNVA) | payer MEDICARE, SELFPAY | PROVIDERS: PCP Family Medicine; Visit Provider Internal Medicine | DX: E11.9 Type 2 diabetes mellitus without complications (principal); E78.2 Mixed hyperlipidemia; Z79.84 Long term (current) use of oral hypoglycemic drugs | CPT/HCPCS: 99214 ==

== ENCOUNTER 2025-07-07 20:24 | Outpatient (CLI) | payer MEDICARE, SELFPAY | END 2025-07-07 20:25 | disposition home or self-care (01) | LOC: SLEEP 20:25 | PROVIDERS: PCP Family Medicine; Referring Provider Family Medicine; Visit Provider Internal Medicine Pulmonary Disease | DX: G47.33 Obstructive sleep apnea (adult) (pediatric) (principal); G47.36 Sleep related hypoventilation in conditions classified elsewhere | CPT/HCPCS: 95810 ==